=== PATIENT | female | born 1970 | race Caucasian/White ===

== ENCOUNTER 2020-04-10 13:35 | Emergency (ER) | payer BC, SELFPAY ==
[2020-04-10 13:48] VITALS: BP 134/78; PULSE 77; RESP 20; TEMP 36.5; O2SAT 98
--- NOTE | 2020-04-10 14:09 | ED.GENADULT ---
HPI - General Adult General Chief complaint: Asthma Stated complaint: asthma Time Seen by Provider: 04/10/20 14:09 Source: patient and RN notes reviewed Mode of arrival: ambulatory Limitations: no limitations History of Present Illness HPI narrative: 49-year-old female presents with complaints of dry cough, wheezing, and intermittent asthma exacerbation episodes for the past 13 hours. Asthma attack at 02:00, 10:30, and one prior to [facility] arrival. Albuterol inhaler and po Prednisone (40mg). Cough is persistent. Denies feeling ill or chest feeling Heavy. Intermittent short of breath when ambulating. Denies high fever or chills. Exacerbating factors consists of coughing attacks and getting over heated. Denies chest pain, coughing up blood, difficulty swallowing, jaw pain, dental pain, facial pain, foreign body sensation, and rash. The patient reports she have not been diagnosed with COVID-19. The patient reports she is not waiting for the results of a COVID-19 lab test. The patient reports she do not have fever, chills, weakness, or fatigue. The patient reports she do not have a new or worsening cough or shortness of breath. Denies chest pain. The patient reports she do not have any rhinorrhea, congestion, sore throat, nausea, vomiting, abdominal pain, and diarrhea. Tolerating po intake well. Denies recent traveling. Denies concerns for COVID-19 or exposures been home with limited outdoor exposure except for essential household needs, work, and return home. At this time, patient is not suspected of having COVID-19. Some parts of this dictation were generated by voice recognition software and may contain typographical and/or grammatical inaccuracies. Related Data Home Medications Medication Instructions Recorded Confirmed albuterol sulfate INHALATION 04/10/20 estradiol mg 04/10/20 prednisone 04/10/20 secukinumab [Cosentyx] mg SUBCUT 04/10/20 Allergies Allergy/AdvReac Type Severity Reaction Status Date / Time cobalt Allergy Unknown Verified 04/22/18 17:18 latex Allergy Unknown Verified 08/03/14 14:18 Review of Systems Review of Systems: Narrative: CONSTITUTIONAL: Denies fever, chills, sweats. EYES: Denies visual changes, redness, discharge. ENT: Denies rhinorrhea, congestion, sore throat, otalgia. CARDIOVASCULAR: Denies chest pain, palpitations, edema. RESPIRATORY: Complains of dyspnea, wheezing, persistent dry cough. GASTROINTESTINAL: Denies abdominal pain, nausea, vomiting, diarrhea. GENITOURINARY: Denies dysuria, hematuria, abnormal discharge. SKIN: SKIN: Denies rash or itching. MUSCULOSKELETAL: Denies acute back pain, joint pain, or myalgia. NEUROLOGIC: Denies numbness or focal weakness. PSYCHIATRIC: Denies anxiety or depression. All other systems reviewed are negative, except as documented in HPI and below. [facility] Past Medical History Medical History (Updated 04/11/20 @ 00:00 by Crista Blair) Asthma Psoriasis Rheumatoid arthritis Surgical History Surgical History (Updated 04/10/20 @ 14:54 by JOHN Tabor) History of cholecystectomy History of hysterectomy Family History Family History (Updated 08/03/14 @ 14:21 by DOCTOR UNKNOWN) Other Cerebrovascular accident Hypertension Social History Social History (Updated 04/10/20 @ 14:54 by JOHN Tabor) Smoking status: Former smoker Tobacco type: cigarettes Second hand tobacco smoke exposure: No Alcohol intake: current Substance use: never Living arrangements: with family Occupation/Education: occupation Gender identity (if verbalized by the patient): Female Sexual Orientation (if Verbalized by the Patient): Straight or Heterosexual Comments At time of signature, agree with nurse past medical, surgical, social, and family history. There is relevant patient's past medical history pertinent to the presenting complaint, no relevant family history pertinent to the presenting compl
[2020-04-10] MEDS: IPRATROPIUM BR 0.02% INH SOLN 0.5 MG/2.5 ML VIAL INHALATION (14:26)
[2020-04-10] MEDS: ALBUTEROL SULFATE NEB 2.5 MG/3 ML INH INHALATION (14:27)
[2020-04-10] MEDS: methylPREDNISolone SOD SUCC 125 MG VIAL IM (14:27)
[2020-04-10 15:05] VITALS: PULSE 86; RESP 16; O2SAT 98
== END 2020-04-10 15:05 | disposition home or self-care (01) ==
PROVIDERS: Emergency Provider Nurse Practitioner Family; PCP Registered Nurse
DX: J45.31 Mild persistent asthma with (acute) exacerbation (principal); M06.9 Rheumatoid arthritis, unspecified; Z87.891 Personal history of nicotine dependence
CPT/HCPCS: 94640; 96372; 99213; G0463; J2930

== ENCOUNTER 2020-06-24 15:21 | Emergency (ER) | payer BC, SELFPAY ==
--- NOTE | 2020-06-24 15:27 | ED.SKABFB ---
HPI - Skin/Abscess/Foreign Bdy General Chief complaint: Skin/Abscess/Foreign Body Stated complaint: Bite on Back Time Seen by Provider: 06/24/20 15:45 Source: patient and RN notes reviewed Mode of arrival: ambulatory Limitations: no limitations History of Present Illness HPI narrative: 49-year-old female presents with concern for a painful rash. She reports pain starting on her mid back going under her arm and under her bra line, noticed several days later she had a raised red painful area on her back. She denies any known injury, trauma, bite. She denies any malaise, chills, fever. Denies any treatment. MD complaint: rash Related Data Home Medications Medication Instructions Recorded Confirmed albuterol sulfate 1 puff INHALATION AC 04/10/20 06/24/20 estradiol 1 mg PO DAILY 04/10/20 06/24/20 prednisone 1 mg PO DAILY 04/10/20 06/24/20 secukinumab [Cosentyx] 1 mg SUBCUT DAILY 04/10/20 06/24/20 hydrocodone-ibuprofen 1 tablet PO BID 06/24/20 06/24/20 Allergies Allergy/AdvReac Type Severity Reaction Status Date / Time cobalt Allergy Unknown Hives Verified 06/24/20 15:40 latex Allergy Unknown Hives Verified 06/24/20 15:40 Review of Systems Review of Systems: Narrative: CONSTITUTIONAL: Denies malaise, chills, sweats, or fever. ENT: Denies swollen tongue, swollen throat CARDIOVASCULAR: Denies chest pain, palpitations, or edema. RESPIRATORY: Denies cough or dyspnea. SKIN: Reports a red painful bump on her back, with the pain extending under her arm and onto her chest going along her bra line MUSCULOSKELETAL: Denies myalgia. NEUROLOGIC: Denies numbness, weakness, or headache. All systems reviewed & are unremarkable except as noted in HPI and below PMFSH Past Medical History Medical History (Updated 06/24/20 @ 15:51 by Veronica Burgos NP) Asthma Psoriasis Rheumatoid arthritis Surgical History Surgical History (Updated 04/10/20 @ 14:54 by JOHN Tabor) History of cholecystectomy History of hysterectomy Family History Family History (Updated 08/03/14 @ 14:21 by DOCTOR UNKNOWN) Other Cerebrovascular accident Hypertension Social History Social History (Updated 04/10/20 @ 14:54 by ZAK Tabor Smoking status: Former smoker Tobacco type: cigarettes Second hand tobacco smoke exposure: No Alcohol intake: current Substance use: never Gender identity (if verbalized by the patient): Female Comments At time of signature, agree with nursing past medical, surgical, social and family history. There is no relevant family history pertinent to the presenting complaint Exam Narrative: Exam Narrative: GENERAL: Well-appearing, well-nourished, and in no acute distress. HEAD: Normocephalic EYES: PERRLA, conjunctivae clear ENT: Mucous membranes moist. NECK: Supple. CHEST: No respiratory distress. Speaks in full sentences. HEART: Regular rate and rhythm. SKIN: Warm, dry. Single zosteriform lesion noted to the upper right side of the back NEURO: Alert and oriented x3. PSYCH: Normal mood and affect Course Course Emergency Course: Patient is aware of diagnosis, understands and agrees to treatment plan. Anticipatory guidance given. Patient agrees to follow-up as directed and is aware of reasons to seek care at the emergency department. Portions of this record may have been created with voice recognition software Vital Signs Vital signs: Vital Signs Temperature 98.9 F 06/24/20 15:30 Pulse Rate 72 06/24/20 15:30 Respiratory Rate 18 06/24/20 15:30 Blood Pressure 116/72 06/24/20 15:30 Pulse Oximetry 98 06/24/20 15:30 Temperature 98.9 F 06/24/20 15:30 Pulse Rate 72 06/24/20 15:30 Respiratory Rate 18 06/24/20 15:30 Blood Pressure 116/72 06/24/20 15:30 Pulse Oximetry 98 06/24/20 15:30 Reviewed. MDM - Skin/Abscess/Foreign Bdy MDM Narrative Medical decision making narrative: Does not appear at this time to be erythema multiforme, bul
[2020-06-24 15:30] VITALS: BP 116/72; PULSE 72; RESP 18; TEMP 37.2; O2SAT 98
== END 2020-06-24 16:00 | disposition home or self-care (01) ==
PROVIDERS: Emergency Provider Nurse Practitioner; PCP Registered Nurse
DX: B02.9 Zoster without complications (principal); Z87.891 Personal history of nicotine dependence; J45.909 Unspecified asthma, uncomplicated; M06.9 Rheumatoid arthritis, unspecified
CPT/HCPCS: 99213; G0463

== ENCOUNTER 2020-07-20 08:46 | Outpatient (CLI) | payer BC, SELFPAY ==
--- NOTE | ~2020-07-20 | CT_ITS ---
EXAMINATION: CT sinus wo con DATE: 07/20/2020 08:57 INDICATION: Chronic sinusitis TECHNIQUE: Computed tomography (CT) of the paranasal sinuses was performed without intravenous contra st. The dose-length product (DLP) was 275.58 mGy-cm. Iterative reconstruction was used. COMPARISON: 11/07/2007 FINDINGS: There is normal development and pneumatization of the paranasal sinuses. Surgical changes a re noted in the medial mendieta of the maxillary sinuses. There is a 9 mm polyp or mucous retention cyst at the anterior/inferior aspect of the right maxillary sinus. A smaller polyp or mucous retention cy st is seen laterally in the right maxillary sinus. The sphenoid and frontal sinuses and ethmoidal and mastoid air cells are clear. The bilateral ostiomeatal complexes are patent. Visualized soft tissues are unremarkable. IMPRESSION: 1. Small polyps or mucous retention cysts of the right maxillary sinus. Reviewed, dictated and finalized at location [facility]. [employer]ICATION[employer] OFF[employer]ER
== END 2020-07-20 08:47 ==
LOC: MICIMG 08:47
PROVIDERS: PCP Registered Nurse; Visit Provider Allergy & Immunology
DX: J32.9 Chronic sinusitis, unspecified (principal)
CPT/HCPCS: 70486

== ENCOUNTER 2022-06-21 09:00 | Outpatient (CLI) | payer BC, SELFPAY ==
--- NOTE | ~2022-06-21 | CT_ITS ---
EXAMINATION: CT sinus wo con DATE: 06/21/2022 09:13 INDICATION: Chronic sinusitis TECHNIQUE: Computed tomography (CT) of the paranasal sinuses was performed without intravenous contra st. The dose-length product was 257.01 mGy-cm. Automated exposure control and iterative reconstructio n technique were employed. COMPARISON: CT dated 07/20/2020 FINDINGS: There are small mucous retention cysts of the right maxillary sinus. There is mild mucosal thickening of the ethmoid and right maxillary sinuses. No significant nasal septal deviation. Ostiome atal units are patent. Mastoids are pneumatized. IMPRESSION: 1. Mild chronic sinus disease with mucous retention cyst of the right maxillary sinus. Reviewed, dictated and finalized at location [facility].
== END 2022-06-21 09:01 ==
LOC: MICIMG 09:02
PROVIDERS: PCP Registered Nurse; Visit Provider Allergy & Immunology
DX: J32.9 Chronic sinusitis, unspecified (principal)
CPT/HCPCS: 70486

== ENCOUNTER 2022-07-10 12:04 | Emergency (ER) | payer BC, SELFPAY ==
[2022-07-10 12:11] VITALS: BP 135/102; PULSE 86; RESP 16; TEMP 36.6; O2SAT 100
--- NOTE | 2022-07-10 12:36 | ED.EYEPROB ---
HPI - Eye Problem General Chief complaint: Eye Problems Stated complaint: Both Eyes Irritation Time Seen by Provider: 07/10/22 12:37 Source: patient and RN notes reviewed Mode of arrival: ambulatory Limitations: no limitations History of Present Illness HPI Narrative: 51-year-old female presents concern for bilateral eye irritation, drainage. Reports her son grandson had pinkeye. She reports using onex-[id number]-oovzxbi drops without relief chief complaint: eye redness Related Data Home Medications Medication Instructions Recorded Confirmed albuterol sulfate 90 mcg/actuation 1 puff inhalation AC 04/10/20 07/10/22 aerosol inhaler secukinumab 150 mg/mL subcutaneous 1 mg subcut DAILY 04/10/20 07/10/22 syringe (Cosentyx) fluticasone fur. 200 mcg-umeclid 1 inh inhalation DAILY 07/10/22 07/10/22 62.5 mcg-vilant 25 mcg inhalat.powder (Trelegy Ellipta) ixekizumab 80 mg/mL subcutaneous See Rx Instructions .Route .COMPLEX 07/10/22 07/10/22 auto-injector (Taltz Autoinjector) leflunomide 20 mg tablet 20 mg PO DAILY 07/10/22 07/10/22 prednisone 5 mg tablet 5 mg PO DAILY 07/10/22 07/10/22 Allergies Allergy/AdvReac Type Severity Reaction Status Date / Time cobalt Allergy Unknown Hives Verified 07/10/22 12:10 latex Allergy Unknown Hives Verified 07/10/22 12:10 Review of Systems Review of Systems: CONSTITUTIONAL: Denies malaise, chills, sweats, or fever. EYES: Denies visual changes. Reports bilateral redness, irritation, discharge. ENT: Denies rhinorrhea, congestion, sinus pain, otalgia or sore throat. SKIN: Denies rash or itching. NEUROLOGIC: Denies numbness, weakness, or headache. PSYCHIATRIC: Denies anxiety or depression. All systems reviewed & are unremarkable except as noted in HPI and below PMFSH Past Medical History Medical History (Updated 07/10/22 @ 12:44 by Veronica Burgos NP) Asthma Psoriasis Rheumatoid arthritis Surgical History Surgical History (Updated 04/10/20 @ 14:54 by JOHN Tabor) History of cholecystectomy History of hysterectomy Family History Family History (Updated 08/03/14 @ 14:21 by DOCTOR UNKNOWN) Other Cerebrovascular accident Hypertension Social History Social History (Updated 04/10/20 @ 14:54 by JOHN Tabor) Smoking status: Former smoker Tobacco type: cigarettes Second hand tobacco smoke exposure: No Alcohol intake: current Substance use: never Gender identity (if verbalized by the patient): Female Sexual Orientation (if Verbalized by the Patient): Straight or Heterosexual Comments At time of signature, agree with nursing past medical, surgical, social and family history. There is no relevant family history pertinent to the presenting complaint Exam Narrative: GENERAL: Well-appearing, well-nourished, and in no acute distress. HEAD: Normocephalic, atraumatic. EYES: PERRLA and EOMI. No nystagmus. Bilateral conjunctivae and sclera injected. Upper and lower eyelid unremarkable, no periorbital edema noted ENT: Nares clear, turbinates pink, no rhinorrhea or epistaxis. Mucous membranes moist. TM pearly michele with sharp light reflex bilaterally; no tragal tenderness. NECK: Supple. CHEST: No respiratory distress. Speaks in full sentences. HEART: Regular rate and rhythm. SKIN: Warm, dry, no visible rash. NEURO: Alert and oriented x3. PSYCH: Normal mood and affect Course Course Emergency Course: Patient is aware of diagnosis, understands and agrees to treatment plan. Anticipatory guidance given. Patient agrees to follow-up as directed and is aware of reasons to seek care at the emergency department. Portions of this record may have been created with voice recognition software Level of Care: Express Care Visit Vital Signs Vital signs: Vital Signs Temperature 97.8 F 07/10/22 12:11 Pulse Rate 86 07/10/22 12:11 Respiratory Rate 16 07/10/22 12:11 Blood Pressure 135/102 H 07/10/22 12:11 Pulse Oximetry 100 10
== END 2022-07-10 12:49 | disposition home or self-care (01) ==
PROVIDERS: Emergency Provider Nurse Practitioner; PCP Registered Nurse
DX: H10.9 Unspecified conjunctivitis (principal); Z87.891 Personal history of nicotine dependence; J45.909 Unspecified asthma, uncomplicated; M06.9 Rheumatoid arthritis, unspecified
CPT/HCPCS: 99213; G0463

== ENCOUNTER 2022-09-19 15:19 | Emergency (ER) | payer BC, SELFPAY ==
[2022-09-19 15:27] VITALS: BP 142/86; PULSE 75; RESP 16; TEMP 37; O2SAT 100
--- NOTE | 2022-09-19 15:45 | ED.URI ---
HPI - URI/Sore Throat General Chief Complaint: Upper Respiratory Infection Stated Complaint: sinus pressure Time Seen by Provider: 09/19/22 15:40 Source: patient Mode of arrival: ambulatory Limitations: no limitations History of Present Illness HPI Narrative: Ms. Patterson is a 51-year-old female patient presenting to the clinic today with complaints of runny nose, sinus congestion, and sinus pressure times 3-4 days. She denies any fever or chills. Reports that she has had some yellow and green nasal drainage. MD elicited complaint: sore throat and nasal congestion Related Data Home Medications Medication Instructions Recorded Confirmed albuterol sulfate 90 mcg/actuation 1 puff inhalation AC 04/10/20 07/10/22 aerosol inhaler secukinumab 150 mg/mL subcutaneous 1 mg subcut DAILY 04/10/20 07/10/22 syringe (Cosentyx) fluticasone fur. 200 mcg-umeclid 1 inh inhalation DAILY 07/10/22 07/10/22 62.5 mcg-vilant 25 mcg inhalat.powder (Trelegy Ellipta) ixekizumab 80 mg/mL subcutaneous See Rx Instructions .Route .COMPLEX 07/10/22 07/10/22 auto-injector (Taltz Autoinjector) leflunomide 20 mg tablet 20 mg PO DAILY 07/10/22 07/10/22 prednisone 5 mg tablet 5 mg PO DAILY 07/10/22 07/10/22 Allergies Allergy/AdvReac Type Severity Reaction Status Date / Time cobalt Allergy Unknown Hives Verified 09/19/22 15:24 latex Allergy Unknown Hives Verified 09/19/22 15:24 Review of Systems Review of Systems: Pertinent positives per HPI. Patient denies any fever, chills, rash, headache, visual changes, dizziness, cough, shortness of breath, chest pain, palpitations, nausea, vomiting, diarrhea, constipation, abdominal pain, or any urinary issues. [facility] Past Medical History Medical History Asthma Psoriasis Rheumatoid arthritis Surgical History Surgical History History of cholecystectomy History of hysterectomy Family History Family History Other Cerebrovascular accident Hypertension Social History Social History Smoking status: Former smoker Tobacco type: cigarettes Second hand tobacco smoke exposure: No Alcohol intake: current Substance use: never Gender identity (if verbalized by the patient): Female Sexual Orientation (if Verbalized by the Patient): Straight or Heterosexual Comments At the time of my signature, I reviewed and agree with the nursing past medical, surgical, social, and family history. There is no relevant family history pertinent to the patient complaint. Exam Narrative: General: Well-developed, well nourished, in no apparent distress Head: Normocephalic, atraumatic Eyes: Pupils equally round and reactive to light bilaterally, EOM intact, sclera and conjunctive clear, no discharge, lids normal Ears: TMs intact and clear, ear canals clear, no drainage, grossly hearing normal. Nose: Nares patent, clear nasal discharge, moderate inflammation, maxillary sinus tenderness. Mouth: Oral pharynx without lesions or masses, good dentition, MMM. oropharynx red, postnasal drip Neck: Supple, trachea midline, no enlargement of anterior or posterior cervical nodes, no thyroid masses or goiter palpable. Cardio: Regular rate and rhythm, s1 and s2 normal, no murmur appreciated. Resp: Clear to auscultation bilaterally, no rhonchi, rales, wheezing or rubs Course Course Emergency Course: Portions of this record may have been created with voice recognition software. Level of Care: Express Care Visit Vital Signs Vital signs: Vital Signs Temperature 37.0 C 09/19/22 15:27 Pulse Rate 75 09/19/22 15:27 Respiratory Rate 16 09/19/22 15:27 Blood Pressure 142/86 H 09/19/22 15:27 Pulse Oximetry 100 09/19/22 15:27 Oxygen Delivery Room Air
== END 2022-09-19 15:53 | disposition home or self-care (01) ==
PROVIDERS: Emergency Provider Nurse Practitioner Family; PCP Registered Nurse
DX: J06.9 Acute upper respiratory infection, unspecified (principal); Z87.891 Personal history of nicotine dependence; J45.909 Unspecified asthma, uncomplicated; L40.9 Psoriasis, unspecified; M06.9 Rheumatoid arthritis, unspecified
CPT/HCPCS: 99213; G0463

== ENCOUNTER 2022-12-07 16:56 | Emergency (ER) | payer BC, SELFPAY ==
[2022-12-07 17:07] VITALS: BP 151/92; PULSE 90; RESP 16; TEMP 37.2; O2SAT 100
--- NOTE | 2022-12-07 17:39 | ED.GENADULT ---
HPI - General Adult General Chief complaint: Skin/Abscess/Foreign Body Stated complaint: Wound Time Seen by Provider: 12/07/22 17:39 Source: patient, RN notes reviewed and old records reviewed Mode of arrival: ambulatory Limitations: no limitations History of Present Illness HPI narrative: 51-year-old female presents to the [facility] with concerns over inflammation and redness to attend to she had done 2 weeks ago. Has a history of psoriatic arthritis. Redness and swelling noted to the to tattoos, yellow ink seems to be coming out. No increased warmth or fluctuance Has had multiple tattoos in the past, no issues with them before Related Data Home Medications Medication Instructions Recorded Confirmed albuterol sulfate 90 mcg/actuation 1 puff inhalation AC 04/10/20 12/07/22 aerosol inhaler secukinumab 150 mg/mL subcutaneous 1 mg subcut DAILY 04/10/20 12/07/22 syringe (Cosentyx) fluticasone fur. 200 mcg-umeclid 1 inh inhalation DAILY 07/10/22 12/07/22 62.5 mcg-vilant 25 mcg inhalat.powder (Trelegy Ellipta) ixekizumab 80 mg/mL subcutaneous See Rx Instructions .Route .COMPLEX 07/10/22 12/07/22 auto-injector (Taltz Autoinjector) leflunomide 20 mg tablet 20 mg PO DAILY 07/10/22 12/07/22 prednisone 5 mg tablet 5 mg PO DAILY 07/10/22 12/07/22 Allergies Allergy/AdvReac Type Severity Reaction Status Date / Time cobalt Allergy Unknown Hives Verified 12/07/22 17:13 latex Allergy Unknown Hives Verified 12/07/22 17:13 Review of Systems Review of Systems: All systems reviewed & are unremarkable except as noted in HPI and below Constitutional: Constitutional: Reports no additional constitutional complaints Eyes: Eyes: Reports no additional eye complaints ENT: Reports system reviewed and no additional complaints, except as documented Cardiovascular: Cardiovascular: Reports no additional cardiovascular complaints, Denies chest pain and Denies dyspnea Respiratory: Respiratory: Reports no additional respiratory complaints, Denies chest congestion, Denies cough and Denies dyspnea Gastrointestinal: Gastrointestinal: Reports no additional gastrointestinal complaints, Denies abdominal pain, Denies nausea and Denies vomiting Musculoskeletal: Musculoskeletal: Reports no additional musculoskeletal complaints Integumentary/Breasts: Skin/Breast: Reports as per HPI Neurologic: Reports system reviewed and no additional complaints, except as documented Psychiatric: Psychiatric: Reports no additional psychiatric complaints Allergic/Immunologic: Allergic/Immunologic: Reports no additional allergic/immunologic complaints [facility] Past Medical History Medical History Asthma Psoriasis Rheumatoid arthritis Surgical History Surgical History History of cholecystectomy History of hysterectomy Family History Family History Other Cerebrovascular accident Hypertension Social History Social History Smoking status: Former smoker Tobacco type: cigarettes Second hand tobacco smoke exposure: No Alcohol intake: current Substance use: never Living arrangements: with family Occupation/Education: occupation Gender identity (if verbalized by the patient): Female Sexual Orientation (if Verbalized by the Patient): Straight or Heterosexual Comments At the time of my signature, I reviewed and agree with the nursing past medical, surgical, social, and family history. There is no relevant family history pertinent to the patient complaint. Exam Const: General: cooperative, healthy appearing, comfortable, no acute distress, well developed, alert and well nourished Nutritional Appearance: well nourished Orientation/consciousness: patient oriented x3 Limitations: no limitations HENMT: Head: no
== END 2022-12-07 18:00 | disposition home or self-care (01) ==
PROVIDERS: Emergency Provider Nurse Practitioner; PCP Registered Nurse
DX: L53.9 Erythematous condition, unspecified (principal); Z87.891 Personal history of nicotine dependence; J45.909 Unspecified asthma, uncomplicated; M06.9 Rheumatoid arthritis, unspecified; L40.9 Psoriasis, unspecified
CPT/HCPCS: 99213; G0463

== ENCOUNTER 2023-04-02 15:43 | Outpatient (CLI) | payer BC, SELFPAY ==
--- NOTE | ~2023-04-02 | CT_ITS ---
EXAMINATION: CT sinus wo con DATE: 04/02/2023 15:57 INDICATION: Chronic sinusitis. History of sinus surgery. TECHNIQUE: Computed tomography (CT) of the paranasal sinuses was performed without contrast. Iterativ e reconstruction technique was employed. Exam dose: 257.89 mGy-cm total exam DLP. COMPARISON: 06/21/2022 CT sinus examination FINDINGS: No significant nasal septal deviation. The nasal turbinates are moderately prominent and sy mmetric in size except for intralamellar cell of the right middle nasal turbinate. There are bilateral nasal antral windows. The ostiomeatal units are patent. There is mild nodular mucoperiosteal thickening of the lower right maxillary sinus. The paranasal sin uses and mastoid air cells are otherwise clear and well aerated. IMPRESSION: Minimal mucoperiosteal thickening of the lower right maxilla sinus; the paranasal sinuse s and mastoid air cells are otherwise well aerated Intralamellar cell of right middle nasal turbinate Status post bilateral nasal antral windows Reviewed, dictated and finalized at [facility]. Reviewed, dictated and finalized at location [facility]. IMPRESSION: Minimal mucoperiosteal thickening of the lower right maxilla sinus ; the paranasal sinuses and mastoid air cells are otherwise well aerated Intralamellar cell of right middle nasal turbinate Status post bilateral nasal antral windows
== END 2023-04-02 15:44 ==
PROVIDERS: PCP Allergy & Immunology; Visit Provider Allergy & Immunology
DX: J32.9 Chronic sinusitis, unspecified (principal)
CPT/HCPCS: 70486

== ENCOUNTER 2023-05-14 14:59 | Emergency (ER) | payer BC, SELFPAY ==
--- NOTE | 2023-05-14 15:16 | ED.URI ---
HPI - URI/Sore Throat General Chief Complaint: Upper Respiratory Infection Stated Complaint: Sinus Time Seen by Provider: 05/14/23 15:20 Source: patient Mode of arrival: ambulatory Limitations: no limitations History of Present Illness HPI Narrative: Neeraj is a 52-year-old female patient presenting to the clinic today with complaints of cough and nasal congestion x3 weeks. Reports she has been already placed on a steroid however the symptoms are getting worse. Denies any fever or chills. MD elicited complaint: cough, nasal congestion and sinus pain Related Data Home Medications Medication Instructions Recorded Confirmed albuterol sulfate 90 mcg/actuation 1 puff inhalation AC 04/10/20 05/14/23 aerosol inhaler secukinumab 150 mg/mL subcutaneous 1 mg subcut DAILY 04/10/20 12/07/22 syringe (Cosentyx) fluticasone fur. 200 mcg-umeclid 1 inh inhalation DAILY 07/10/22 05/14/23 62.5 mcg-vilant 25 mcg inhalat.powder (Trelegy Ellipta) ixekizumab 80 mg/mL subcutaneous See Rx Instructions .Route .COMPLEX 07/10/22 05/14/23 auto-injector (Taltz Autoinjector) leflunomide 20 mg tablet 20 mg PO DAILY 07/10/22 05/14/23 prednisone 5 mg tablet 5 mg PO DAILY 07/10/22 05/14/23 Allergies Allergy/AdvReac Type Severity Reaction Status Date / Time cobalt Allergy Unknown Hives Verified 05/14/23 15:25 latex Allergy Unknown Hives Verified 05/14/23 15:25 Review of Systems Review of Systems: Pertinent positives per HPI. Patient denies any fever, chills, rash, visual changes, dizziness, shortness of breath, chest pain, palpitations, nausea, vomiting, diarrhea, constipation, abdominal pain, or any urinary issues. [facility] Past Medical History Medical History Asthma Psoriasis Rheumatoid arthritis Surgical History Surgical History History of cholecystectomy History of hysterectomy Family History Family History Other Cerebrovascular accident Hypertension Social History Social History Smoking status: Former smoker Tobacco type: cigarettes Second hand tobacco smoke exposure: No Alcohol intake: current Substance use: never Living arrangements: with family Occupation/Education: occupation Gender identity (if verbalized by the patient): Female Sexual Orientation (if Verbalized by the Patient): Straight or Heterosexual Comments At the time of my signature, I reviewed and agree with the nursing past medical, surgical, social, and family history. There is no relevant family history pertinent to the patient complaint. Exam Narrative: General: Well-developed, well nourished, in no apparent distress Head: Normocephalic, atraumatic Eyes: Pupils equally round and reactive to light bilaterally, EOM intact, sclera and conjunctive clear, no discharge, lids normal Ears: TMs intact and clear, ear canals clear, no drainage, grossly hearing normal. Nose: Nares patent, clear discharge moderate to severe inflammation, maxillary and frontal sinus tenderness. Mouth: Oral pharynx without lesions or masses, good dentition, MMM. Postnasal drip Neck: Supple, trachea midline, no enlargement of anterior or posterior cervical nodes, no thyroid masses or goiter palpable. Cardio: Regular rate and rhythm, s1 and s2 normal, no murmur appreciated. Resp: Clear to auscultation bilaterally, no rhonchi, rales, wheezing or rubs Course Course Emergency Course: Portions of this record may have been created with voice recognition software. Level of Care: Express Care Visit Vital Signs Vital signs: Vital Signs Temperature 37.1 C 05/14/23 15:17 Pulse Rate 72 05/14/23 15:17 Respiratory Rate 16 05/14/23 15:17 Blood Pressure 136/83 05/14/23 15:17 Pulse Oximetry 100 05/14/23 15:17 Oxygen
[2023-05-14 15:17] VITALS: BP 136/83; PULSE 72; RESP 16; TEMP 37.1; O2SAT 100
== END 2023-05-14 15:35 | disposition home or self-care (01) ==
PROVIDERS: Emergency Provider Nurse Practitioner Family; PCP Allergy & Immunology
DX: J01.90 Acute sinusitis, unspecified (principal); Z87.891 Personal history of nicotine dependence; J45.909 Unspecified asthma, uncomplicated; L40.9 Psoriasis, unspecified; M06.9 Rheumatoid arthritis, unspecified
CPT/HCPCS: 99213; G0463

== ENCOUNTER 2023-08-21 15:38 | Emergency (ER) | payer BC, SELFPAY ==
--- NOTE | 2023-08-21 15:42 | ED.EAR ---
HPI - Ear Problem General Chief complaint: Ear Stated complaint: Ears Irritation/Dizziness Time Seen by Provider: 08/21/23 16:06 Source: patient and RN notes reviewed Mode of arrival: ambulatory Limitations: no limitations History of Present Illness HPI Narrative: 52-year-old female presents concern for bilateral ear pain and dizziness. Reports symptoms started yesterday. She reports history of having wax impaction. She reports dizziness happens when she turns her head. She reports headache after looking at the computer screen all day work. She denies upper respiratory infection symptoms, however reports chronic sinus symptoms MD Complaint: ear pain Related Data Home Medications Medication Instructions Recorded Confirmed albuterol sulfate 90 mcg/actuation 1 puff inhalation AC 04/10/20 05/14/23 aerosol inhaler fluticasone fur. 200 mcg-umeclid 1 inh inhalation DAILY 07/10/22 05/14/23 62.5 mcg-vilant 25 mcg inhalat.powder (Trelegy Ellipta) ixekizumab 80 mg/mL subcutaneous See Rx Instructions .Route .COMPLEX 07/10/22 05/14/23 auto-injector (Taltz Autoinjector) leflunomide 20 mg tablet 20 mg PO DAILY 07/10/22 05/14/23 Allergies Allergy/AdvReac Type Severity Reaction Status Date / Time cobalt Allergy Unknown Hives Verified 08/21/23 15:51 latex Allergy Unknown Hives Verified 08/21/23 15:51 Review of Systems Review of Systems: CONSTITUTIONAL: Denies malaise, chills, sweats, or fever. EYES: Denies visual changes, redness, or discharge. ENT: Reports chronic rhinorrhea, congestion. Reports bilateral ear pain and fullness CARDIOVASCULAR: Denies chest pain, palpitations, or edema. RESPIRATORY: Denies cough. Denies dyspnea. GASTROINTESTINAL: Denies abdominal pain, nausea, vomiting, diarrhea SKIN: Denies rash or itching. MUSCULOSKELETAL: Denies myalgia. NEUROLOGIC: Reports headache. Reports positional dizziness All systems reviewed & are unremarkable except as noted in HPI and below PMFSH Past Medical History Medical History Asthma Psoriasis Rheumatoid arthritis Surgical History Surgical History History of cholecystectomy History of hysterectomy Family History Family History Other Cerebrovascular accident Hypertension Social History Social History Smoking status: Former smoker Tobacco type: cigarettes Second hand tobacco smoke exposure: No Alcohol intake: current Substance use: never Living arrangements: with family Occupation/Education: occupation Gender identity (if verbalized by the patient): Female Sexual Orientation (if Verbalized by the Patient): Straight or Heterosexual Comments At time of signature, agree with nursing past medical, surgical, social and family history. There is no relevant family history pertinent to the presenting complaint Exam Narrative: GENERAL: Well-appearing, well-nourished, and in no acute distress. HEAD: Normocephalic EYES: PERRLA, conjunctivae clear ENT: Nares clear, turbinates edematous, clear discharge. Mucous membranes moist. Excess cerumen in both ears, cerumen flushed. Right TM erythematous and bulging, left TM erythematous; no tragal tenderness. Right not erythematous without lesions. Tonsils not enlarged and without exudate, no drooling, no hoarseness, no trismus, uvula midline. NECK: Supple. No lymphadenopathy CHEST: Clear to auscultation, breath sounds equal. No wheezing, rhonchi, rales, or stridor. No respiratory distress, speaks in full sentences. HEART: Regular rate and rhythm. No murmur heard. SKIN: Warm, dry, no rash. NEURO: Alert and oriented x3. No focal deficits, cranial nerves 2-12 grossly intact PSYCH: Normal mood and affect Course Course Emergency Course: Patient is aware of diagnosis,
[2023-08-21 15:45] VITALS: BP 129/88; PULSE 89; RESP 16; TEMP 36.1; O2SAT 99
== END 2023-08-21 16:46 | disposition home or self-care (01) ==
PROVIDERS: Emergency Provider Nurse Practitioner; PCP Registered Nurse
DX: H66.91 Otitis media, unspecified, right ear (principal); R42 Dizziness and giddiness; H61.23 Impacted cerumen, bilateral; Z87.891 Personal history of nicotine dependence; J45.909 Unspecified asthma, uncomplicated; L40.9 Psoriasis, unspecified; M06.9 Rheumatoid arthritis, unspecified
CPT/HCPCS: 69210; 99213; A9270; G0463

== ENCOUNTER 2024-05-05 09:28 | Emergency (ER) | payer BC, SELFPAY ==
[2024-05-05 09:35] VITALS: BP 115/78; PULSE 88; RESP 20; TEMP 36.6; O2SAT 100
--- NOTE | 2024-05-05 09:57 | ED.URI ---
HPI - URI/Sore Throat General Chief Complaint: Extremity Problem,Nontraumatic Stated Complaint: Joint issue,pain, fluid buildup ref here by fran Time Seen by Provider: 05/05/24 09:45 Source: patient, RN notes reviewed and old records reviewed Mode of arrival: ambulatory Limitations: no limitations History of Present Illness HPI Narrative: Patient presents with complaints of psoriatic arthritis flare up. Patient follows with rheumatology at [facility], her screw eye assembler is out of the office today, staff reportedly advised patient to seek help at urgent care. Patient states that symptoms began a couple of days ago. She has pain and swelling to multiple joints. Fatigue. She has been taking her regular medications, states that this is worse flare that she has had in a long time. Reports good response to steroid medications in the past. She did not have any on hand. She denies any fever, chills, sweats. Denies any injury or trauma Related Data Home Medications Medication Instructions Recorded Confirmed fluticasone fur. 200 mcg-umeclid 1 inh inhalation DAILY 07/10/22 05/05/24 62.5 mcg-vilant 25 mcg inhalat.powder (Trelegy Ellipta) prednisone 5 mg tablet 5 mg DIRECTED 05/05/24 05/05/24 Allergies Allergy/AdvReac Type Severity Reaction Status Date / Time cobalt Allergy Unknown Hives Verified 08/21/23 15:51 latex Allergy Unknown Hives Verified 08/21/23 15:51 Review of Systems Review of Systems: All systems reviewed & are unremarkable except as noted in HPI and below Constitutional: Constitutional: Reports as per HPI, Reports no additional constitutional complaints, Reports fatigue and Reports lethargy ENT: Reports system reviewed and no additional complaints, except as documented Cardiovascular: Cardiovascular: Reports no additional cardiovascular complaints Respiratory: Respiratory: Reports no additional respiratory complaints Gastrointestinal: Gastrointestinal: Reports no additional gastrointestinal complaints Musculoskeletal: Musculoskeletal: Reports no additional musculoskeletal complaints, Reports as per HPI, Reports myalgias, Reports arthralgias, Reports joint swelling and Reports limited range of motion PMFSH Past Medical History Medical History Asthma Psoriasis Rheumatoid arthritis Surgical History Surgical History History of cholecystectomy History of hysterectomy Family History Family History Other Cerebrovascular accident Hypertension Social History Social History Smoking status: Former smoker Tobacco type: cigarettes Second hand tobacco smoke exposure: No Alcohol intake: current Substance use: never Living arrangements: with family Occupation/Education: occupation Gender identity (if verbalized by the patient): Female Sexual Orientation (if Verbalized by the Patient): Straight or Heterosexual Comments At the time of my signature, I reviewed and agree with the nursing past medical, surgical, social, and family history. There is no relevant family history pertinent to the patient complaint. Exam Const: General: cooperative, no acute distress, alert and awake Orientation/consciousness: oriented to person, oriented to place and oriented to time HENMT: Head: normal to inspection Resp: Effort & Inspection: normal respiratory effort and able to speak in complete sentences Auscultation: clear to auscultation bilaterally, no crackles, no rales, no rhonchi and no wheezes Cardio: Palpation: normal PMI Rate: regular rate Rhythm: regular rhythm Heart sounds: S1 normal heart sound present and S2 normal heart sound present Neuro: General: oriented to person, oriented to place and oriented to time Cranial nerves: Yes CN's II-XII int
[2024-05-05] MEDS: predniSONE 20 MG TABLET 60 MG PO (10:02)
== END 2024-05-05 10:20 | disposition home or self-care (01) ==
PROVIDERS: Emergency Provider Nurse Practitioner Family; PCP Registered Nurse
DX: L40.50 Arthropathic psoriasis, unspecified (principal); Z87.891 Personal history of nicotine dependence; L40.9 Psoriasis, unspecified; M06.9 Rheumatoid arthritis, unspecified; J45.909 Unspecified asthma, uncomplicated
CPT/HCPCS: 99213; G0463; J7512

== ENCOUNTER 2024-05-08 07:45 | Emergency (ER) | payer BC, SELFPAY ==
--- NOTE | ~2024-05-08 | XR_ITS ---
EXAMINATION: XR chest 2V DATE: 05/08/2024 08:57 INDICATION: Chest pain with breathing. TECHNIQUE: Frontal and lateral views of the chest were obtained. COMPARISON: Chest 2 views 04/22/2018 FINDINGS: There is no pneumonia, pleural effusion, or pneumothorax. The heart size is normal. Surgica l clips in the right upper quadrant are likely from cholecystectomy. IMPRESSION: 1. No acute cardiopulmonary disease. Reviewed, dictated and finalized at location A.
[2024-05-08 07:49] VITALS: BP 146/91; PULSE 106; RESP 22; TEMP 36.6; O2SAT 97
--- NOTE | 2024-05-08 08:03 | ECG_ITS ---
Test Date: 2024-05-08 08:18:37 Measurements Intervals [place] Rate: 80 P: 75 ID: 144 QRS: 58 QRSD: 101 T: 54 QT: 388 QTc: 449 Interpretive Statements SINUS RHYTHM No previous ECG available for comparison Electronically Signed On 05-08-2024 15:11:40 CDT by Hi Wolfe M.D.
[2024-05-08] MEDS: SODIUM CHLORIDE 0.9% IV 1,000 ML 999 ML IV CONT ×2 (08:16→08:17)
[2024-05-08] MEDS: KETOROLAC 30 MG/ML VIAL (*BKC) IV PUSH (08:17)
--- NOTE | 2024-05-08 08:18 | ED.GENADULT ---
HPI - General Adult General Chief complaint: Unspecified Stated complaint: flare up of my psoriatic arthritis Time Seen by Provider: 05/08/24 07:50 History of Present Illness HPI narrative: Patient is a 53-year-old female with history of psoriatic arthritis who presents ER with reports of joint pains. Ongoing for several days. Has recently been started on prednisone 50 mg. She has had decreased swelling in her right wrist. She reports however that the pain is still present so she opted to come here for further evaluation. Patient has been having some cough. No fevers or chills. No redness of the joints. No chest pain or chest pressure. Related Data Home Medications Medication Instructions Recorded Confirmed fluticasone fur. 200 mcg-umeclid 1 inh inhalation DAILY 07/10/22 05/05/24 62.5 mcg-vilant 25 mcg inhalat.powder (Trelegy Ellipta) prednisone 5 mg tablet 5 mg DIRECTED 05/05/24 05/05/24 Allergies Allergy/AdvReac Type Severity Reaction Status Date / Time cobalt Allergy Unknown Hives Verified 05/08/24 07:52 latex Allergy Unknown Hives Verified 05/08/24 07:52 Review of Systems Review of Systems: All systems reviewed & are unremarkable except as noted in HPI and below Constitutional: Constitutional: Reports no additional constitutional complaints ENT: Reports system reviewed and no additional complaints, except as documented Cardiovascular: Cardiovascular: Reports no additional cardiovascular complaints Respiratory: Respiratory: Denies chest congestion, Reports cough, Denies excessive phlegm production and Reports dyspnea Gastrointestinal: Gastrointestinal: Reports no additional gastrointestinal complaints Musculoskeletal: Musculoskeletal: Reports myalgias, Reports arthralgias, Reports joint swelling and Denies muscle cramps PMFSH Past Medical History Medical History Asthma Psoriasis Rheumatoid arthritis Surgical History Surgical History History of cholecystectomy History of hysterectomy Family History Family History Other Cerebrovascular accident Hypertension Social History Social History Smoking status: Former smoker Tobacco type: cigarettes Second hand tobacco smoke exposure: No Alcohol intake: current Substance use: never Living arrangements: with family Occupation/Education: occupation Gender identity (if verbalized by the patient): Female Sexual Orientation (if Verbalized by the Patient): Straight or Heterosexual Exam Narrative: GENERAL: Well-appearing, well-nourished, and in no acute distress. HEAD: Normocephalic, atraumatic. ENT: Mucous membranes moist. CHEST: Clear to auscultation. No respiratory distress. HEART: Regular rate and rhythm. Normal peripheral pulses. ABDOMEN: Soft, nontender, nondistended. EXTREMITIES: Normal range of motion. No edema. No significant joint effusion. SKIN: Warm, dry, no rash. NEURO: Alert and oriented x3. PSYCH: Normal mood and affect. Course Vital Signs Vital signs: Vital Signs Temperature 97.8 F 05/08/24 07:49 Pulse Rate 106 H 05/08/24 07:49 Respiratory Rate 22 H 05/08/24 07:49 Blood Pressure 146/91 H 05/08/24 07:49 Pulse Oximetry 97 05/08/24 07:49 Oxygen Delivery Room Air 05/08/24 07:49 Temperature 97.8 F 05/08/24 07:49 Pulse Rate 62 05/08/24 09:16 Respiratory Rate 19 05/08/24 09:16 Blood Pressure 124/84 05/08/24 09:16 Pulse Oximetry 100 05/08/24 09:17 Oxygen Delivery Room Air 05/08/24 07:49 Medical Decision Making MDM Narrative Medical decision making narrative: -Course: Pain improved. Informed of results. -Co-morbidities complicating care: Psoriatic arthritis -Hx from independent Sources: Patient -Independent interpr
[2024-05-08 08:23] VITALS: O2SAT 97
[2024-05-08 08:30] LABS: Basophils Absolute Auto 0.1 K/mm3 (0.0-0.1); Eosinophils Absolute Auto 0.1 K/mm3 (0-0.3); Eosinophils Percent Auto 0.9 % (0-4.4); Hematocrit 42.4 % (37.0-47.0); Hemoglobin 14.3 g/dL (12.0-15.0); Immature Granulocyte Absolute 0.06 K/mm3 (0.00-0.031); Immature Granulocyte Percent A 0.8 % (0-0.5); Lymphocytes Absolute Auto 2.68 K/mm3 (0.9-3.2); Lymphocytes Percent Auto 33.9 % (18.3-44.2); Mean Corpuscular HGB Conc 33.7 g/dl (32-36); Mean Corpuscular Hemoglobin 29.7 pg (26-34); Mean Corpuscular Volume 88.1 fl (80-100); Mean Platelet Volume 9.6 fl (7.4-10.4); Monocytes Absolute Auto 0.8 K/mm3 (0.1-0.6); Monocytes Percent Auto 9.6 % (2.6-8.5); Neutrophils Absolute Auto 4.3 K/mm3 (1.3-6.7); Neutrophils Percent Auto 53.8 % (45.5-73.1); Platelet Count Result 351 k/mm3 (150-375); Red Blood Count 4.81 M/mm3 (4.2-5.4); Red Cell Distribution Width 12.2 % (11.5-14.5); White Blood Count 7.9 K/mm3 (4.5-10.0)
[2024-05-08 08:46] LABS: Anion Gap 13 mmol/L (4-12); Blood Urea Nitrogen 8 mg/dL (7-17); Carbon Dioxide 24 mmol/L (22-30); Chloride 101 mmol/L (98-107); Estimated CRCL calculation 73 ml/min; Estimated Glomerular Filt Rate > 60; Potassium 2.9 mmol/L (3.4-5.0); Sodium 138 mmol/L (137-145)
[2024-05-08 08:47] LABS: Albumin Level 3.8 g/dL (3.5-5.1); Alkaline Phosphatase 79 U/L (38-126); Aspartate Amino Transferase 20 U/L (14-36); Bilirubin,Total 0.4 mg/dL (0.2-1.3); Calcium 8.6 mg/dL (8.4-10.2); Glucose 112 mg/dL (65-110)
[2024-05-08 08:51] LABS: Alanine Aminotransferase 21 U/L (6-35)
[2024-05-08 09:02] LABS: Influenza A QL RT-PCR Negative (Negative); Influenza B QL RT-PCR Negative (Negative); RSV RNA, RT-PCR Negative (Negative); SARS-CoV-2 RNA PCR Negative (Negative)
[2024-05-08 09:16] VITALS: BP 124/84; PULSE 62; RESP 19; O2SAT 100
[2024-05-08 09:17] VITALS: O2SAT 100
[2024-05-08] MEDS: POTASSIUM CHLORIDE 20 MEQ PACKET (FOR LIQUID) 40 MEQ PO (09:33)
[2024-05-08] MEDS: HYDROcodone/acetaminophen (*CRX) 5-325 MG TABLET 1 TAB PO (09:34)
[2024-05-08 10:16] VITALS: PULSE 89; RESP 16; O2SAT 100
== END 2024-05-08 10:29 | disposition home or self-care (01) ==
PROVIDERS: Emergency Provider Emergency Medicine; PCP Registered Nurse
DX: L40.50 Arthropathic psoriasis, unspecified (principal); E87.6 Hypokalemia; Z20.822 Contact with and (suspected) exposure to COVID-19; J45.909 Unspecified asthma, uncomplicated; M06.9 Rheumatoid arthritis, unspecified; Z87.891 Personal history of nicotine dependence; Z90.710 Acquired absence of both cervix and uterus; Z90.49 Acquired absence of other specified parts of digestive tract; Z79.51 Long term (current) use of inhaled steroids; Z79.52 Long term (current) use of systemic steroids
CPT/HCPCS: 36415; 71046; 80053; 85025; 87637; 93005; 96361; 96374; 99284; A9270; J1885; J7030

== ENCOUNTER 2024-06-24 14:45 | Emergency (ER) | payer BC, SELFPAY ==
--- NOTE | ~2024-06-24 | CT_ITS ---
CTA chest PE protocol Ordering provider: Love Montoya PA-C History: 53 years Female with . covid, sob, cp,+dimer . Comparison: None. Technique: CT angiogram chest was performed following timed intravenous injection of contrast. Thin s lice axial images and reformatted coronal images were obtained. Three dimensional reformatted images of the chest were also obtained using a [employer] workstation. . Automated exposure control and iterati ve reconstruction technique were employed. The dose-length product was 387.11 mGy-cm. 100 mL Omnipaqu e 350 was given IV. Findings: PULMONARY ARTERIES: No pulmonary embolus. VISUALIZED THORACIC INLET: Hypodensities in the right lobe of the thyroid anteriorly suggestive of a nodule. Ultrasound evaluation advised. MEDIASTINUM: Aorta/coronary arteries: The thoracic aorta is normal. Heart/other: The heart is not enlarged. Lymph nodes: No mediastinal or hilar adenopathy. LUNGS: Patchy groundglass appearing areas are seen in the right upper lobe suggestive of atypical or viral p neumonia. Follow-up advised. Atelectasis versus focal pneumonia seen in the right lower lobe near to the transverse fissure. No pulmonary nodules or masses. No effusions. No pneumothorax. VISUALIZED UPPER ABDOMEN: Small sliding hiatus hernia. Otherwise, the visualized upper abdomen is nor mal. MUSCULOSKELETAL: Soft tissues: The superficial soft tissues are normal. Bones: Normal spine. IMPRESSION: 1. No pulmonary embolism. 2. Patchy groundglass opacities in the right upper lobe which is suggestive of atypical or viral pne umonia. Follow-up advised. 3. Hypodensity in the right lobe of the thyroid. 4. Small sliding hiatus hernia. Reviewed, dictated and finalized at location A. IMPRESSION: 1. No pulmonary embolism. 2. Patchy groundglass opacities in the right upper lobe which is suggestive of atypical or viral pneumonia. Follow-up advised. 3. Hypodensity in the right lobe of the thyroid. 4. Small sliding hiatus hernia.
--- NOTE | ~2024-06-24 | XR_ITS ---
EXAMINATION: XR elbow RT min 3V DATE: 06/24/2024 17:41 INDICATION: Right olecranon swelling and redness. TECHNIQUE: 4 views of right elbow were obtained. COMPARISON: None. FINDINGS: Alignment is normal. No fracture. There is mild elbow joint osteoarthritis. No elbow joint effusion. There is soft tissue swelling overlying the olecranon, consistent with bursitis. IMPRESSION: 1. Olecranon bursitis. 2. Mild elbow joint osteoarthritis. Reviewed, dictated and finalized at location A.
--- NOTE | ~2024-06-24 | XR_ITS ---
CHEST RADIOGRAPH, PA AND LATERAL CLINICAL HISTORY: covid positive, nausea, psoriatic arth flaring . COMPARISON: 05/08/2024 TECHNIQUE: PA and lateral views of the chest. FINDINGS The cardiomediastinal silhouette is unremarkable. The lungs are clear. Visualized osseous structures and soft tissues are unremarkable. IMPRESSION: No focal infiltrate or effusion. Reviewed, dictated and finalized at location A.
--- NOTE | ~2024-06-24 | XR_ITS ---
XR elbow LT min 3V Ordering provider: Love Montoya History: . olecranon swelling/redness POSTERIOR ELBOWS . Comparison: None FINDINGS: BONES: Small bony fragment is a joint space near to the radial head which may be a chip fracture. Loo se body is also possible. Clinical correlation advised. Otherwise No acute fracture or dislocation. JOINT SPACES: Normal. SOFT TISSUES: Soft tissue swelling seen posteriorly. No definite joint effusion. IMPRESSION: Small bony fragment seen near to the radial head indications this area which may be a loose body or f racture. Clinical correlation advised. Soft tissue swelling over the elbow posteriorly. Reviewed, dictated and finalized at location A. IMPRESSION: Small bony fragment seen near to the radial head indications this area which ma y be a loose body or fracture. Clinical correlation advised. Soft tissue swelling over the elbow posteriorly.
--- NOTE | 2024-06-24 14:47 | ECG_ITS ---
Test Date: 2024-06-24 14:58:06 Measurements Intervals [place] Rate: 86 P: 69 OK: 157 QRS: 67 QRSD: 81 T: 80 QT: 365 QTc: 437 Interpretive Statements BASELINE MOTION ARTIFACT, REDUCED ECG QUALITY SINUS RHYTHM NONSPECIFIC ST & T-WAVE ABNORMALITY BORDERLINE ECG Compared to ECG 05/08/2024 08:18:37 CURRENT TRACING IS OF POOR QUALITY Electronically Signed On 06-25-2024 07:10:28 CDT by Prashant Gillis M.D.
[2024-06-24 14:51] VITALS: BP 116/87; PULSE 102; RESP 20; TEMP 36.4; O2SAT 100
--- NOTE | 2024-06-24 16:35 | ED.SOB ---
HPI - SOB/Dyspnea General Chief Complaint: Shortness of Breath/Dyspnea <VERITO Krishnamurthy Last Filed: 06/24/24 16:48> Stated Complaint: covid positive <VERITO Krishnamurthy Last Filed: 06/24/24 16:48> Time Seen by Provider: 06/24/24 16:35 <VERITO Krishnamurthy Last Filed: 06/24/24 16:48> Focused HPI: Patient is a 53 y/o female, with PMH psoriatic arthritis and psoriasis on Remicade infusions (q8 weeks) with Prednisone 5mg daily, who presents to the ED with c/o SOB. Patient reports she tested positive for COVID last Sunday. She has been managing sx's at home, but attempted to return to work today and began feeling SOB. Worse with exertion. States she spoke to her crop roller (Dr. Silva with [facility]) today and was referred to the ED for further evaluation. Patient c/o cough, PABON, R sided rib pain, yesica neck pain. She also reports her yesica elbow joints have been swelling over past couple days, worse throughout R elbow. She notes she has required drainage of R elbow joint in the past. Denies significant CP. Denies recent fevers. Has hx of DVT in her leg around 25 years ago. GENERAL: Mildly ill-appearing, well-nourished, and in no acute distress. HEAD: Normocephalic, atraumatic. CHEST: Clear to auscultation. ?No respiratory distress. No significant focal lung sounds. HEART: Regular rate and rhythm.? MSK: Diffuse swelling in R elbow joint/olecranon with focal fluctuance, warmth, erythema. Small amount of scaling dry skin to tip of olecranon, no drainage. L elbow olecranon also with slight swelling/warmth/erythema/fluctuance, but less severe than R. Skin intact. NEURO: ?Alert and oriented x3. Patient screened in triage and initial orders placed.? ?Additional care and disposition to be based upon?diagnostic testing and treatment. <VERITO Krishnamurthy Last Filed: 06/24/24 16:48> Source: patient <VERITO Krishnamurthy Last Filed: 06/24/24 16:48> Mode of arrival: ambulatory <Love Montoya PA-C - Last Filed: 06/24/24 16:48> Limitations: no limitations <VERITO Krishnamurthy Last Filed: 06/24/24 16:48> History of Present Illness HPI Narrative: Agree with the HPI <Juan Fernandez MD - Last Filed: 06/25/24 03:47> Related Data Home Medications: Home Medications Medication Instructions Recorded Confirmed fluticasone fur. 200 mcg-umeclid 1 inh inhalation DAILY 07/10/22 05/05/24 62.5 mcg-vilant 25 mcg inhalat.powder (Trelegy Ellipta) prednisone 5 mg tablet 5 mg DIRECTED 05/05/24 05/05/24 <Love Montoya PA-C - Last Filed: 06/24/24 16:48> Allergies/Adverse Reactions: Allergies Allergy/AdvReac Type Severity Reaction Status Date / Time cobalt Allergy Unknown Hives Verified 05/08/24 07:52 latex Allergy Unknown Hives Verified 05/08/24 07:52 <Love Montoya PA-C - Last Filed: 06/24/24 16:48> Review of Systems Review of Systems: All systems reviewed & are unremarkable except as noted in HPI and below <Juan Fernandez MD - Last Filed: 06/25/24 03:47> [facility] Past Medical History Medical History: Medical History Asthma Psoriasis Rheumatoid arthritis <Love Montoya PA-C - Last Filed: 06/24/24 16:48> Surgical History Surgical History: Surgical History History of cholecystectomy History of hysterectomy <VERITO Krishnamurthy Last Filed: 06/24/24 16:48> Family History Family History: Family History Other Cerebrovascular accident Hypertension <LUCIANO KrishnamurthyC - Last Filed: 06/24/24 16:48> Social History Social History: Social History Smoking status: Former smoker Tobacco type: cigarettes Second hand tobacco s
[2024-06-24 17:06] LABS: Basophils Absolute Auto 0.1 K/mm3 (0.0-0.1); Basophils Percent Auto 0.6 % (0.2-1.2); Eosinophils Absolute Auto 0.2 K/mm3 (0-0.3); Eosinophils Percent Auto 1.8 % (0-4.4); Hematocrit 43.3 % (37.0-47.0); Hemoglobin 14.8 g/dL (12.0-15.0); Immature Granulocyte Absolute 0.03 K/mm3 (0.00-0.031); Immature Granulocyte Percent A 0.3 % (0-0.5); Lymphocytes Percent Auto 22.1 % (18.3-44.2); Mean Corpuscular HGB Conc 34.2 g/dl (32-36); Mean Corpuscular Hemoglobin 29.9 pg (26-34); Mean Corpuscular Volume 87.5 fl (80-100); Mean Platelet Volume 9.9 fl (7.4-10.4); Monocytes Absolute Auto 0.7 K/mm3 (0.1-0.6); Monocytes Percent Auto 6.7 % (2.6-8.5); Neutrophils Absolute Auto 7.5 K/mm3 (1.3-6.7); Neutrophils Percent Auto 68.5 % (45.5-73.1); Platelet Count Result 310 k/mm3 (150-375); Red Blood Count 4.95 M/mm3 (4.2-5.4); White Blood Count 10.9 K/mm3 (4.5-10.0)
[2024-06-24 17:22] LABS: Prothrombin Time 13.7 Seconds (11.1-14.7)
[2024-06-24 17:34] LABS: D Dimer 12.99 ug/mL (<0.48)
[2024-06-24 17:44] LABS: Erythrocyte Sedimentation Rate 21 mm/hr (0-20)
[2024-06-24] MEDS: SODIUM CHLORIDE 0.9% IV 1,000 ML 999 ML IV CONT (19:49)
[2024-06-24] MEDS: KETOROLAC 15 MG/ML VIAL (*BKC) IV PUSH (19:49)
[2024-06-24 19:55] LABS: Alanine Aminotransferase 20 U/L (6-35); Albumin Level 4.1 g/dL (3.5-5.1); Alkaline Phosphatase 103 U/L (38-126); Anion Gap 10 mmol/L (4-12); Aspartate Amino Transferase 34 U/L (14-36); Bilirubin,Total 0.5 mg/dL (0.2-1.3); Blood Urea Nitrogen 13 mg/dL (7-17); Carbon Dioxide 26 mmol/L (22-30); Chloride 101 mmol/L (98-107); Estimated CRCL calculation 75 ml/min; Estimated Glomerular Filt Rate > 60; Glucose 138 mg/dL (65-110); Magnesium 1.8 mg/dL (1.6-2.3); Potassium 4.3 mmol/L (3.4-5.0); Sodium 137 mmol/L (137-145)
[2024-06-24 19:56] VITALS: BP 120/75; PULSE 71; RESP 16; O2SAT 99
[2024-06-24 19:58] LABS: CRP 1.3 mg/dL (<1.0)
[2024-06-24 20:02] LABS: NT Pro B Type Natriuretic Pept 34 pg/mL (19.9-100); Troponin I < 0.012 ng/mL (0.000-0.034)
[2024-06-24 22:18] VITALS: BP 138/88; PULSE 76; RESP 15; O2SAT 100
== END 2024-06-24 22:19 | disposition home or self-care (01) ==
PROVIDERS: Emergency Medicine; Physician Assistant; Emergency Provider Emergency Medicine; PCP Registered Nurse
DX: M70.21 Olecranon bursitis, right elbow (principal); U07.1 COVID-19; M06.9 Rheumatoid arthritis, unspecified; L40.50 Arthropathic psoriasis, unspecified; Z90.49 Acquired absence of other specified parts of digestive tract; Z90.710 Acquired absence of both cervix and uterus; M19.021 Primary osteoarthritis, right elbow; R94.31 Abnormal electrocardiogram [ECG] [EKG]; K44.9 Diaphragmatic hernia without obstruction or gangrene; R93.89 Abnormal findings on diagnostic imaging of other specified body structures; R91.8 Other nonspecific abnormal finding of lung field; Z79.51 Long term (current) use of inhaled steroids; Z79.52 Long term (current) use of systemic steroids; Z79.620 Long term (current) use of immunosuppressive biologic
CPT/HCPCS: 36415; 71046; 71275; 73080; 80053; 83605; 83735; 83880; 84484; 85025; 85380; 85610; 85652; 85730; 86140; 93005; 96361; 96374; 99284; J1885; J7030; Q9967

== ENCOUNTER 2024-08-12 17:35 | Emergency (ER) | payer BC, SELFPAY ==
--- NOTE | 2024-08-12 17:38 | ED_ITS ---
HPI - Skin/Abscess/Foreign Bdy General Chief complaint: Skin/Abscess/Foreign Body Stated complaint: Rash Time Seen by Provider: 08/12/24 17:36 Source: patient Mode of arrival: ambulatory Limitations: no limitations History of Present Illness HPI narrative: Tiffani is a 53-year-old female patient presenting to the clinic today with complaints of rash around her chin. She reports that this has been going on for a couple weeks and has gradually gotten worse. She spoke with her hat body sorter who told her to put Aquaphor lotion on it she said that has helped however over the last few days it has gotten worse. States his tender to touch and also itchy. No changes in soaps, shampoos, lotions detergents, or environment. Has had recent antibiotics and meds over the past month Related Data Home Medications Medication Instructions Recorded Confirmed apremilast 30 mg tablet (Otezla) mg PO 08/12/24 trazodone 50 mg tablet mg 08/12/24 Allergies Allergy/AdvReac Type Severity Reaction Status Date / Time cobalt Allergy Unknown Hives Verified 08/12/24 17:42 latex Allergy Unknown Hives Verified 08/12/24 17:42 Review of Systems Review of Systems: Pertinent positives per HPI. Patient denies any fever, chills, headache, visual changes, dizziness, cough, runny nose, sore throat, shortness of breath, chest pain, palpitations, nausea, vomiting, diarrhea, constipation, abdominal pain, or any urinary issues. [facility] Past Medical History Medical History Asthma Psoriasis Rheumatoid arthritis Surgical History Surgical History History of cholecystectomy History of hysterectomy Family History Family History Other Cerebrovascular accident Hypertension Social History Social History Smoking status: Former smoker Tobacco type: cigarettes Second hand tobacco smoke exposure: No Alcohol intake: current Substance use: never Living arrangements: with family Occupation/Education: occupation Gender identity (if verbalized by the patient): Female Sexual Orientation (if Verbalized by the Patient): Straight or Heterosexual Comments At the time of my signature, I reviewed and agree with the nursing past medical, surgical, social, and family history. There is no relevant family history pertinent to the patient complaint. Exam Narrative: General: Well-developed, well nourished, in no apparent distress Head: Normocephalic, atraumatic. Cardio: Regular rate and rhythm, s1 and s2 normal, no murmur appreciated. Resp: Clear to auscultation bilaterally, no rhonchi, rales, wheezing or rubs. Integumentary: [place], warm, and dry, red, mildly raised, itchy rash to the anterior chin Course Course Emergency Course: Portions of this record may have been created with voice recognition software. Level of Care: Express Care Visit Vital Signs Vital signs: Vital Signs Temperature 36.9 C 08/12/24 17:42 Pulse Rate 95 08/12/24 17:42 Respiratory Rate 16 08/12/24 17:42 Blood Pressure 139/95 H 08/12/24 17:42 Pulse Oximetry 100 08/12/24 17:42 Oxygen Delivery Room Air 08/12/24 17:42 Temperature 36.9 C 08/12/24 17:42 Pulse Rate 95 08/12/24 17:42 Respiratory Rate 16 08/12/24 17:42 Blood Pressure 139/95 H 08/12/24 17:42 Pulse Oximetry 100 08/12/24 17:42 Oxygen Delivery Room Air 08/12/24 17:42 Vital signs reviewed MDM - Skin/Abscess/Foreign Bdy MDM Narrative Medical decision making narrative: At the time of visit patient is resting comfortably on the exam table. Patient appears to be nontoxic. Plan: I suspect patient has dermatitis. Prescription for triamcinolone cream was sent to the pharmacy. Supportive measures were discussed with the patient and they voiced understanding discharge instructions and agrees to treatment plan. Return precautions reviewed Differential Diagnosis Differential diagnosis: Likely abscess of skin or subcutaneous tissue, viral exanthem, dermatophytosis, urticaria, herpes zoster, allergic reaction to drug, cellulitis, eczema, insect bites, impetigo and contact dermatitis Discharge Plan Discharge Clinical Impression: Dermatitis Patient Disposition: Home, Self-Care Condition: Stable Instructions: Antibiotic Form, Dermatitis (ED) Additional Instructions: Apply triamcinolone cream as directed Avoid hot showers Moisturize skin using Aquaphor, Lubriderm, or Cetaphil lotion Avoid scratching as this can cause a secondary infection May take benadryl 25-50mg every 6 hours as needed for itching. Follow up with your PCP in 3-5 days if symptoms persist or sooner if they worsen Go to the Emergency Room if symptoms worsen- fever, rash spreading with treatment, shortness of breath, tongue swelling, drooling, or chest pain Prescriptions: New triamcinolone acetonide 0.1 % cream 1 applic topical BID 7 Days Qty: 30 0RF No Action trazodone 50 mg tablet Otezla 30 mg tablet PO Follow-up/Referrals: Florence,ISMAEL Foster [Primary Care Provider] - Time of Disposition: 17:48 Quality NIHSS Nursing Documentation ED NIHSS nursing documentation: reviewed/agree
[2024-08-12 17:42] VITALS: BP 139/95; PULSE 95; RESP 16; TEMP 36.9; O2SAT 100
== END 2024-08-12 17:54 | disposition home or self-care (01) ==
PROVIDERS: Emergency Provider Nurse Practitioner Family; PCP Registered Nurse
DX: L30.9 Dermatitis, unspecified (principal); Z79.899 Other long term (current) drug therapy; Z87.891 Personal history of nicotine dependence
CPT/HCPCS: 99213; G0463

== ENCOUNTER 2024-10-27 02:49 | Emergency (ER) | payer BC, SELFPAY ==
--- OUTSIDE RECORDS SUMMARY | 2024-10-27 02:51 | XMS_ITS | Clinical Summary ---
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 Gender Identity Not on file Sexual Orientation Not on file Plan of Treatment Health Maintenance Due Date Last Done Comments Hepatitis C Virus (HCV) Screening 1972 TdaP Immunization 1972 Hepatitis B Immunization (1 of 3 - 19+ 3-dose series) 12/21/1991 Pap Smear 1993 Cervical Cancer Screening (CCS) 2002 HPV/Cotest 2002 Colonoscopy 2017 Colorectal Cancer Screening 2017 Cologuard 2022 Immunochemical Fecal Occult Blood 2022 Mammogram 2022 Pneumococcal Immunization (5 0+ years) (1 of 1 - PCV) 2022 Zoster Immunization (1 of 2) 2022 Influenza Immunization (#1) 2024 06/12/2020 SARS-COV-2 Immunization ( - season) 2024 Respiratory Syncytial Virus (RSV) Immunization (Adult) (1 - 1-dose 75+ series) 12/21/2047 Meningococcal Immunization (ACWY) Aged Out No longer eligible based on patient's age to complete this topic Pneumococcal Immunization Combined Aged Out No longer eligible based on patient's age to complete this topic Rotavirus Immunization Aged Out No lo nger eligible based on patient's age to complete this topic
--- OUTSIDE RECORDS SUMMARY | 2024-10-27 02:51 | XMS_ITS | Continuity of Care Document ---
Author Organization [facility] Address [address] [place] [address] Phone Care Team Providers Care Shrub Grower Name Role Phone Saravanan GRAMAJO, Michael Unavailable Unavailable Procedures Procedure Date TB INTRADERMAL TEST IMMUNIZATION ADMIN Advance Directives Directive Yes / No Effective Date File Name No Information Encounters Encounter Description Practice Location Reason(s) For Visit Diagnoses Date Provider Providers Copied on Encounter [facility], [address] [place], [place] [address], [id number], [place] tel:[phone] [facility] TB skin test (chief complaint) Screening examination for pulmonary tuberculosis Saravanan Rodriguez. [address], [id number] , [place]. tel:[phone] Referring Provider: Michael Coe, [address] [place], [place], [id number]. tel:[phone] Family History Family Member Type Diagnosis Age At Onset No Information Payers Payer name Insurance type Covered green party ID Authoriza tion(s) No Information Social History Type Description Quantity Date Captured Comments Sex Female Smoking Status No Information Chief Complaint And Reason For Visit From encounter dated '06/24/2012 09:00'. TB skin test (chief complaint) Plan Of Treatment Date Type Action Status No Information History Of Present Illness Encounter Date Complaint History Of Prese nt Illness No Information Instructions Date Instruction Additional Infor mation Return to office in 48-72hours R elated to Screening-Pulmonary TB Assessments Type Assessment Date No Information
--- OUTSIDE RECORDS SUMMARY | 2024-10-27 02:51 | XMS_ITS | Encounter Summary ---
Author Organization [facility] Address [address] [place] [address] Care Team Providers Care Time Study Statistician Name Role Phone Kristin Henriquez Primary Care Provider + Encounter Details Date Type Department Care Team (Late st Contact Info) Description 01/01/2024 Telephone [facility] [address] [place] [address] CarrierVonnie RN Social History Tobacco Use Types Packs/Day Years Used Date Smoking Tobacco: Former Smokeless Tobacco: Never Alcohol Use Standard Drinks/Week Comments No 0 (1 standard drink = 0.6 oz pur e alcohol) Hunger Vital Sign Answer Date Recorded Within the past 12 months, y ou worried that your food would run out before you got the money to buy more. Never true 01/03/20 24 Within the past 12 months, t he food you bought just didn't last and you didn't have money to get more. Never true 01/03/2024 Personal Safety Answer Date Recorded Have you ever been in or are you currently in a harmful physical or emotional relationship or is someone making you feel afraid or unsafe? 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
--- OUTSIDE RECORDS SUMMARY | 2024-10-27 02:52 | XMS_ITS | Encounter Summary ---
Author Organization [facility] Address [address] [place] [address] Phone Care Team Providers Care Reconnaissance Man Name Role Phone Kristin Henriquez Primary Care Provider + Encounter Details Date Type Department Care Team (Late st Contact Info) Description 08/18/2022 Orders Only [facility] Scanning, Provider Social History Tobacco Use Types Packs/Day Years Used Date Smoking Tobacco: Former Smokeless Tobacco: Never Alcohol Use Standard Drinks/Week Comments No 0 (1 standard drink = 0.6 oz pur e alcohol) Comments Unknown Sex and Gender Information Value Date Recorded Sex Assigned at Not on file 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 Gender Identity Not on file Sexual Orientation Not on file documented as of this encounter Plan of Treatment Not on file documented as of this encounter Procedures Procedure Name Priority Date/Time Associated Diagnosis Comments SCAN - RADIOLOGY/IMAGING 08/18/2022 documented in this encounter Results * SCAN - RADIOLOGY/IMAGING (08/18/2022) Anatomical Region Laterality Modality Other us Provider Scanning Edited Result - Final documented in this encounter Visit Diagnoses Not on filedocumented in this encounter Care Teams Reconnaissance Man Relationship Specialty Start Date End Date Kristin Henriquez PA [address] [place] [address] PCP - General Nurse Practitioner 11/18/19 documented as of this encounter
--- OUTSIDE RECORDS SUMMARY | 2024-10-27 02:52 | XMS_ITS | Encounter Summary ---
Author Organization [facility] Address [address] [place] [address] Care Team Providers Care Director Auto Name Role Phone Marilyn Simmons MD Unavailable [phone] Kristin Henriquez Primary Care Provider [phone] Encounter Details Date Type Department Care Team (Late Contact Info) Description 08/15/2024 [employer] Message Enc [facility] Family & Internal Medicine [address] [phone] [facility] Provider Cologuard results Social History Tobacco Use Types Packs/Day Years Used Date Smoking Tobacco: Former Cigarettes 1.5 20 1 2 - 2011 Smokeless Tobacco: Never Alcohol Use Standard Drinks/Week Comments Yes 10 (1 standard drink = 0.6 oz pu re alcohol) social PHQ-2 Answer Date Recorded PHQ-2 Score 0 12/15/2018 Comments No Sex and Gender Information Value Date Recorded Sex Assigned at Not on file Legal Sex Female 6:55 PM CDT Gender Identity Not on file Sexual Orientation Not on file 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 Not on file Not on file documented as of this encounter Plan of Treatment Upcoming Encounters Date Type Department Care Team (Late Contact Info) Description 10/29/2024 10:40 AM STUDENT SUCCESS ADVISOR Office Visit [facility] Family & Internal Medicine [address] [phone] Kristin Henriquez APNP [address] [place] [id number] documented as of this encounter Visit Diagnoses Not on filedocumented in this encounter Additional Health Concerns Assessment Noted Time PHQ-9 Depression Total Score: 0 10/29/19 19 8:51 AM STUDENT SUCCESS ADVISOR documented as of this encounter Care Teams Director Auto Relationship Specialty Start Date End Date Kristin Henriquez APNP Family & Internal Medicine [address] [address] PCP - General NURSE PRACTITIONER 05/18/18 Marilyn Simmons MD Ajith Furniture Refinisher INTERVENTIONAL CARDIOLOGY 05/09/18 documented as of this encounter
--- OUTSIDE RECORDS SUMMARY | 2024-10-27 02:52 | XMS_ITS | Encounter Summary ---
Author Organization [facility] Address [address] [place] [address] Care Team Providers Care Electrical Installation Supervisor Name Role Phone Marilyn Simmons MD Unavailable [phone] Kristin Henriquez Primary Care Provider [phone] Encounter Details Date Type Department Care Team (Latest Contact Info) Description 05/24/2018 Abstract [facility] , Jaime Zavala MD Social History Tobacco Use Types Packs/Day Years Used Date Smoking Tobacco: Former Cigarettes Q uit: 2012 Smokeless Tobacco: Never Alcohol Use Standard Drinks/Week Comments Yes 0 (1 standard drink = 0.6 oz pur e alcohol) social Comments Unknown Sex and Gender Information Value [...] Encounters Date Type Department Care Team (Late st Contact Info) Description 10/29/2024 10:40 AM LOAN ADMINISTRATOR Office Visit [facility] Family & Internal Medicine - [place] [address] [place] [address] Kristin Henriquez APNP [facility] [place] [address] documented as of this encounter Visit Diagnoses Not on filedocumented in this encounter Additional Health Concerns Infection Onset Date Last Indicated Resolved Time COVID-19 Rule Out 04/28/2020 04/29/2020 05/14/2020 11:54 AM CDT COVID-19 Rule Out 03/07/2022 03/07/2022 03/09/2022 2:44 AM CDT documented as of this encounter Care Teams Electrical Installation Supervisor Relationship Specialty Start Date End Date Kristin Henriquez APNP Family & Internal Medicine [address] [address] PCP - General NURSE PRACTITIONER 05/18/18 Marilyn Simmons MD [employer]ith Medical Economics Consultant INTERVENTIONAL CARDIOLOGY 05/09/18 documented as of this encounter
--- OUTSIDE RECORDS SUMMARY | 2024-10-27 02:52 | XMS_ITS | Referral Summary ---
Author Organization [facility] 2 Address [address] [place] [address] Care Team Providers Care Statistics Manager Name Role Phone Kristin Henriquez Primary Care Provider + Encounters Date Type Department Care Team Description 10/10/2024 1:00 PM BIOPHYSICS PROFESSOR Infusion [facility] [address] [place] [phone] Psoriatic arthritis (HCC) (Primary Dx) 09/12/2024 1:00 PM BIOPHYSICS PROFESSOR Infusion [facility] [address] [place] [phone] Psoriatic arthritis (HCC) (Primary Dx) 09/04/2024 Orders Only [facility] [address] [place] [phone] Valarie Miranda RN 08/27/2024 11:03 AM BIOPHYSICS PROFESSOR - 08/27/2024 11:59 PM BIOPHYSICS PROFESSOR Hospital Encounter [facility] [address] [address] Psoriatic arthritis (HCC) Discharge Disposition: Discharge to home or self care 08/27/2024 9:00 AM BIOPHYSICS PROFESSOR Lab [facility] Endocrinology Metabolism and Lipid Formerly [facility] [facility] 5th [place] [phone] Psoriatic arthritis (HCC); High risk medication use 08/27/2024 8:30 AM BIOPHYSICS PROFESSOR Office Visit [facility] Rheumatology Formerly [facility] 5th [place] [address] [place] [phone] Tigist Bentley MD Psoriatic arthritis (HCC) (Primary Dx); High risk medication use 08/01/2024 1:00 PM BIOPHYSICS PROFESSOR Infusion [facility] [address] [place] [phone] Psoriatic arthritis (HCC) (Primary Dx) from Last 3 Months Allergies Active Allergy Reactions Criticality Noted Date Comments [place] Other (See comments) Low 03/04/2018 Worsening psoriasis Latex Rash Medium 01/02/2013 Rash Medications EAR DROPS, CARBAMIDE PEROXIDE, 6.5 % otic solutionIndica tions:Impacted Cerumen 0 04/22/20 18 Active pimecrolimus (ELIDEL) 1 % cream 01/03/20 13 Active HYDROcodone-ib uprofen (VICOPROFEN) 7.5-200 mg per tabletIndicati ons:Pain as needed for pain 0 05/01/20 18 Active mupirocin (BACTROBAN) 2 % ointment 01/03/20 13 Active albuterol HFA (PROVENTIL HFA,VENTOLIN HFA,PROAIR HFA) 90 mcg/actuation inhaler 02/10/20 20 Active olopatadine (PATANOL) 0.1 % ophthalmic solution 01/01/20 20 Active azithromycin (ZITHROMAX) 250 mg tablet 04/28/20 20 Active budesonide-for moteroL (SYMBICORT) 80-4.5 mcg/actuation inhaler Inhale 2 puffs 2 (two) times a day 04/14/20 20 Active fluticasone propionate (FLONASE) 50 mcg/actuation nasal spray Administer 2 sprays into affected nostril(s) daily 05/14/20 20 Active loratadine (CLARITIN) 10 mg tablet Take 1 tablet (10 mg total) by mouth as needed 05/14/20 20 Active montelukast (SINGULAIR) 10 mg tablet Take 1 tablet (10 mg total) by mouth as needed 05/14/20 20 Active Trelegy Ellipta 200-62.5-25 mcg inhaler TAKE 1 PUFF EVERY DAY IN THE MORNING 11/17/19 21 Active leflunomide (ARAVA) 20 mg tabletIndicati ons:Rheumatoid Arthritis Take 1 tablet (20 mg total) by mouth daily 90 tablet 3 08/14/20 23 Active Additional Information Patient not taking.Reported on 07/24/2024 potassium chloride ER 20 mEq CR tablet Take 1 tablet (20 mEq total) by mouth as needed 05/08/20 24 Active inFLIXimab (REMICADE) 100 mg injection Infuse into a venous catheter Active diclofenac DR (VOLTAREN) 50 mg EC tablet Take 1 tablet (50 mg total) by mouth 2 (two) times a day 07/09/20 24 Active HYDROcodone-ac etaminophen (NORCO) 5-325 mg per tablet Take 1 tablet by mouth every 6 (six) hours as needed 07/09/20 24 Active traZODone (DESYREL) 50 mg tablet Take one half tablet once daily 07/17/20 24 Active triamcinolone (KENALOG) 0.1 % cream APPLY 1 APPLICATION TOPICALLY TWICE A DAY FOR 7 DAYS 08/12/20 24 Active predniSONE (DELTASONE) 5 mg tablet Take 4 tablets (20 mg) by mouth daily for 4 days, THEN 3 tablets (15 mg) daily for 4 days, THEN 2 tablets (10 mg) daily for 4 days, THEN 1 tablet (5 mg) daily. 96 tablet 08/27/20 24 025 Active Otezla 30 mg tabletIndicati ons:Psoriatic arthritis (HCC) TAKE 1 TABLET BY MOUTH 2 TIMES A DAY 180 tablet 10/15/19 25 Active apremilast 30 mg tabletIndicati ons:Psoriatic arthritis (HCC) Take 1 tablet (30 mg total) by mouth 2 (two) times a day 180 tablet 08/01/20 24 025 Discontinued Active Problems Problem Noted Date Diagnosed Date Pain in extremity 01/11/2021 Right elbow pain 11/23/2020 Paresthesia of left foot 11/18/2019 Left foot pain 11/18/2019 Erythematous papules of skin 11/12/2018 Psoriatic arthritis 08/30/2017 Knee pain 08/30/2017 Fatigue 07/03/2017 Primary osteoarthritis of right knee 12/30/2014 High risk medication use 07/07/2013 Eczema 07/07/2013 Lateral epicondylitis 03/01/2013 Fibromyalgia 10/25/2012 Arthralgia 10/25/2012 Psoriasis 06/20/2012 Acne 01/03/2011 Encounter for preventive health examination 03/2011 Immunizations Name Administration Dates Next Due Influenza, Quad, Adjuvantated, Intramuscular Influenza, Quadrivalent, Paula l Culture-based MDCK, Antibiotic Free, Intramuscular 07/11/2018 Influenza, Quadrivalent, Paula l Culture-based MDCK, Preservative Free, Antibiotic Free, Intramuscular 06/17/2019 Social History Tobacco Use Types Packs/Day Years Used Date Smoking Tobacco: Former Smokeless Tobacco: Never Tobacco Cessation:Counseling Given: Not Answered Alcohol Use Standard Drinks/Week Comments No 0 (1 standard drink = 0.6 oz pur e alcohol) Hunger Vital Sign Answer Date Recorded Within the past 12 months, y ou worried that your food would run out before you got the money to buy more. Never true 10/10/19 25 Within the past 12 months, t he food you bought just didn't last and you didn't have money to get more. Never true 10/10/2024 Personal Safety Answer Date Recorded Have you ever been in or are you currently in a harmful physical or emotional relationship or is someone making you feel afraid or unsafe? Denies 10/10/2024 Comments Unknown Sex and Gender Information Value Date Recorded Sex Assigned at Not on file Legal Sex Female 9:19 AM BIOPHYSICS PROFESSOR Gender Identity Not on file Sexual Orientation Not on file Last Filed Vital Signs Vital Sign Reading Time Taken Comments Blood Pressure 156/70 10/10/2024 3:30 PM BIOPHYSICS PROFESSOR Pulse 94 10/10/2024 3:30 PM BIOPHYSICS PROFESSOR Temperature 36.4 C (97.5 F) 10/10/2024 12:50 PM BIOPHYSICS PROFESSOR Respiratory Rate 16 10/10/2024 12:50 PM BIOPHYSICS PROFESSOR Oxygen Saturation 100% 10/10/2024 3:30 PM BIOPHYSICS PROFESSOR Inhaled Oxygen Concentration - - Weight 82.1 kg (181 lb) 10/10/2024 12:50 PM BIOPHYSICS PROFESSOR Height 162.6 cm (5' 4 ) 10/10/2024 12:50 PM BIOPHYSICS PROFESSOR Body Mass Index 31.07 10/10/2024 12:50 PM BIOPHYSICS PROFESSOR Plan of Treatment Not on file Procedures Procedure Name Priority Date/Time Associated Diagnosis Comments ERYTHROCYTE SEDIMENTATION RATE Routine 08/27/2024 8:52 AM BIOPHYSICS PROFESSOR Psoriatic arthritis (HCC) CRP (ACUTE PHASE) Routine 08/27/2024 8:5 2 AM BIOPHYSICS PROFESSOR Psoriatic arthritis (HCC) COMPREHENSIVE METABOLIC PANEL Routine 08/27/2024 8:52 AM BIOPHYSICS PROFESSOR Psoriatic arthritis (HCC) High risk medication use CBC WITH AUTO DIFFERENTIAL Routine 08/27/2024 8:52 AM BIOPHYSICS PROFESSOR Psoriatic arthritis (HCC) High risk medication use HEPATITIS C ANTIBODY Routine 04/20/2021 7:23 PM CDT Pain in extremity, unspecified extremity Psoriatic arthritis (CMS/HCC) (HCC) High risk medication use from Last 3 Months or Most Recently Relevant to Health Maintenance Results * (ABNORMAL) CBC with auto differential (08/27/2024 8:52 AM BIOPHYSICS PROFESSOR) Pathologist [facility] White Blood Count 9.8 3.6 - 11.2 K/uL [facility] RBC 4.72 3.63 - 4.92 M/uL [facility] Hemoglobin 13.8 11.9 - 15.5 g/dL [facility] Hematocrit 40.1 36.1 - 44.3 % [facility] MCV 85.0 80.0 - 97.6 fL [facility] MCH 29.2 26.7 - 33.7 pg [facility] MCHC 34.4 32.7 - 35.5 g/dL [facility] RBC Dist Width 13.4 12.3 - 17.0 % [facility] Platelet Count 426 140 - 440 K/uL [facility] MPV 8.0 6.8 - 10.4 fL [facility] Neutrophils % 70.2 38.7 - 74.5 % [facility] Lymphocyte % 20.9 20.0 - 54.3 % [facility] Monocytes % 5.3 4.3 - 13.5 % [facility] Eosinophils % 2.4 0.0 - 6.0 % [facility] Basophil % 1.2 0.0 - 3.0 % [facility] Absolute Neutrophil 6.9(H) 1.8 - 6.6 K/uL [facility] Absolute Lymphocyte 2.1 0.8 - 3.3 K/uL [facility] Absolute Monocyte 0.5 0.2 - 1.2 K/uL [facility] Absolute Eosinophil 0.2 0.0 - 0.5 K/uL [facility] Absolute Basophil 0.1 0.0 - 0.2 K/uL [facility] Nucleated RBC % 0.1 0.0 - 0.4 /100 WBC [facility] Blood 08/27/2024 8:52 AM BIOPHYSICS PROFESSOR 08/27/2024 9:58 AM BIOPHYSICS PROFESSOR Tigist Escoto MD LAB BL OOD ORDERABLES Final Result [facility] * (ABNORMAL) Erythrocyte sedimentation rate (08/27/2024 8:52 AM BIOPHYSICS PROFESSOR) Erythrocyte sedimentation rate 41(H) 1 - 30 mm/hr Blood 08/27/2024 8:52 AM BIOPHYSICS PROFESSOR 08/27/2024 11:55 AM BIOPHYSICS PROFESSOR Tigist Escoto MD LAB BL OOD ORDERABLES Final Result Performing Organization Address City/[facility]/ZIP Co de Phone Number [facility] Department [place] [address] * (ABNORMAL) CRP (acute phase) (08/27/2024 8:52 AM BIOPHYSICS PROFESSOR) C-Reactive Protein, Acute 41.0(H) <5.0 mg/L [facility] Blood 08/27/2024 8:52 AM BIOPHYSICS PROFESSOR 08/27/2024 9:58 AM BIOPHYSICS PROFESSOR Tigist Escoto MD LAB BL OOD ORDERABLES Final Result [facility] * (ABNORMAL) Comprehensive metabolic panel (08/27/2024 8:52 AM BIOPHYSICS PROFESSOR) Total Protein 7.3 6.1 - 8.4 g/dL [facility] Albumin 3.7 3.5 - 5.2 g/dL [facility] Calcium 9.4 8.6 - 10.3 mg/dL [facility] BUN 8 7 - 23 mg/dL [facility] Total Bilirubin 0.28 0.20 - 1.40 mg/dL [facility] Alk Phos, Total 144(H) 35 - 129 IU/L [facility] AST (SGOT) 14 11 - 47 IU/L [facility] ALT (SGPT) 13 6 - 53 IU/L [facility] Creatinine 0.75 0.60 - 1.10 mg/dL [facility] Sodium 137 135 - 145 mmol/L [facility] Potassium 3.7 3.3 - 5.1 mmol/L [facility] Chloride 100 95 - 107 mmol/L [facility] CO2 Content 24 21 - 29 mmol/L [facility] Glucose 195(H) 64 - 99 mg/dL [facility] Comment: NONFASTING GLUCOSE RANGE = 64-199 mg/dL FASTING GLUCOSE 64 - 99 = NORMAL FASTING GLUCOSE 100 - 125 = IMPAIRED FASTING GLUCOSE FASTING GLUCOSE >=126 = PROVISIONAL DIAGNOSIS OF DIABETES eGFR >90.0 >60.0 mL/min/1.7 3 m2 [facility] Blood 08/27/2024 8:52 AM BIOPHYSICS PROFESSOR 08/27/2024 9:58 AM BIOPHYSICS PROFESSOR Tigist Escoto MD LAB BL OOD ORDERABLES Final Result [facility] * Hepatitis C antibody (04/20/2021 7:23 PM CDT) Hep C Ab Nonreactive Nonreactive [facility] Comment:Antibodies to HCV no t detected. Does NOT exclude the possibility of recent exposure to HCV. Blood specimen (specimen) 04/20/2021 7:23 PM CDT 04/20/2021 8:13 PM CDT us Thania Zamarripa NP LAB MICROBIOLOGY - GENERA L ORDERABLES Edited Result - Final [facility] Department [place] [address] from Last 3 Months or Most Recently Relevant to Health Maintenance [place] [facility] Care Teams Statistics Manager Relationship Specialty Start Date End Date Kristin Henriquez PA [address] [place] [phone] PCP - General Nurse Practitioner 11/18/19
--- OUTSIDE RECORDS SUMMARY | 2024-10-27 02:52 | XMS_ITS | Clinical Summary ---
Author Organization [facility] 2 Address [address] [facility] [place] [address] Care Team Providers Care Belt Measurer Name Role Phone Kristin Henriquez Primary Care Provider + Allergies Active Allergy Reactions Criticality Noted Date Comments [place] Other (See comments) Low 03/04/2018 Worsening psoriasis [...] mg total) by mouth as needed 05/14/20 Active montelukast (SINGULAIR) 10 mg tablet Take 1 tablet (10 mg total) by mouth as needed 05/14/20 Active Trelegy Ellipta 200-62.5-25 mcg inhaler TAKE 1 PUFF EVERY DAY IN THE MORNING 11/17/19 Active leflunomide (ARAVA) 20 mg tabletIndicati ons:Rheumatoid [...] mouth 2 (two) times a day 07/09/20 Active HYDROcodone-ac etaminophen (NORCO) 5-325 mg per [...] 01/03/2011 Encounter for preventive health examination 03/2011 Encounters Date Type Department Care Team Description 10/10/2024 1:00 PM ACTIVITY COORDINATOR Infusion [facility] [address] [place] [phone] Psoriatic arthritis (HCC) (Primary Dx) 09/12/2024 1:00 PM ACTIVITY COORDINATOR Infusion [facility] [address] [place] [phone] Psoriatic arthritis (HCC) (Primary Dx) 09/04/2024 Orders Only [facility] [address] [place] [address] Ave [address] [place] [phone] Valarie Miranda RN 08/27/2024 11:03 AM ACTIVITY COORDINATOR - 08/27/2024 11:59 PM ACTIVITY COORDINATOR Hospital Encounter [address] [address] Psoriatic arthritis (HCC) Discharge Disposition: Discharge to home or self care 08/27/2024 9:00 AM ACTIVITY COORDINATOR Lab [facility] Endocrinology Metabolism and Lipid [address] [facility] [facility] [address] 5th [place] [phone] Psoriatic arthritis (HCC); High risk medication use 08/27/2024 8:30 AM ACTIVITY COORDINATOR Office Visit [facility] Rheumatology [address] [facility] [address] 5th [place] [phone] Tigist Bentley MD Psoriatic arthritis (HCC) (Primary Dx); High risk medication use 08/01/2024 1:00 PM ACTIVITY COORDINATOR Infusion [facility] [address] [place] [phone] Psoriatic arthritis (HCC) (Primary Dx) from Last 3 Months Immunizations Name Administration Dates Next Due Influenza, Quad, Adjuvantated, Intramuscular Influenza, Quadrivalent, Paula l Culture-based MDCK, Antibiotic Free, Intramuscular 07/11/2018 Influenza, Quadrivalent, Paula l Culture-based MDCK, Preservative Free, Antibiotic Free, Intramuscular 06/17/2019 Family History Medical History Relation Name Comments Arthritis Father Family history of arthritis - (Added by [employer] Conv) Osteoarthritis Father Family histor y of osteoarthritis - (Added by [employer] Conv) Osteoarthritis Mother Family histor y of osteoarthritis - (Added by [employer] Conv) Rheum arthritis Mother Family histo ry of rheumatoid arthritis - (Added by [employer] Conv)/Family history of rheumatoid arthritis - (Added by Vayyar) Relation Name Status Comments Father Mother Social History Tobacco Use Types Packs/Day Years [...] on file Legal Sex Female 9:19 AM ACTIVITY COORDINATOR Gender Identity Not on file Sexual Orientation Not on file Obstetrics History Last Filed Vital Signs Vital Sign Reading Time Taken Comments Blood Pressure 156/70 10/10/2024 3:30 PM ACTIVITY COORDINATOR Pulse 94 10/10/2024 3:30 PM ACTIVITY COORDINATOR Temperature 36.4 C (97.5 F) 10/10/2024 12:50 PM ACTIVITY COORDINATOR Respiratory Rate 16 10/10/2024 12:50 PM ACTIVITY COORDINATOR Oxygen Saturation 100% 10/10/2024 3:30 PM ACTIVITY COORDINATOR Inhaled Oxygen Concentration - - Weight 82.1 kg (181 lb) 10/10/2024 12:50 PM ACTIVITY COORDINATOR Height 162.6 cm (5' 4 ) 10/10/2024 12:50 PM ACTIVITY COORDINATOR Body Mass Index 31.07 10/10/2024 12:50 PM ACTIVITY COORDINATOR Plan of Treatment Health Maintenance Due Date Last Done Comments Breast Cancer Screening-Mammogram 1972 Cervical Cancer Screening 1972 Colon Cancer Screening-Colonoscopy 1972 Depression Screening 1972 Pneumococcal vaccine <65 (1 of 2 - PCV) 1978 Regular Well Visit/Exam 18-64 1990 Zoster Vaccine (1 of 2) 12/21/1991 Influenza Vaccine (#1) 2024 , 06/12/2020, 06/17/2019, Additional history exists DTaP/Tdap/Td Vaccine (2 - Td or Tdap) 05/08/2031 05/08/2021 Hepatitis C Screening Completed 04/20/2021, 014 Hepatitis B Screening Completed 10/23/2023 Procedures Procedure Name Priority Date/Time Associated Diagnosis Comments ERYTHROCYTE SEDIMENTATION RATE Routine 08/27/2024 8:52 AM ACTIVITY COORDINATOR Psoriatic arthritis (HCC) CRP (ACUTE PHASE) Routine 08/27/2024 8:5 2 AM ACTIVITY COORDINATOR Psoriatic arthritis (HCC) COMPREHENSIVE METABOLIC PANEL Routine 08/27/2024 8:52 AM ACTIVITY COORDINATOR Psoriatic arthritis (HCC) High risk medication use CBC WITH AUTO DIFFERENTIAL Routine 08/27/2024 8:52 AM ACTIVITY COORDINATOR Psoriatic arthritis (HCC) High risk medication use HEPATITIS C ANTIBODY Routine 04/20/2021 7:23 PM CDT Pain in extremity, unspecified extremity Psoriatic arthritis (CMS/HCC) (HCC) High risk medication use from Last 3 Months or Most Recently Relevant to Health Maintenance Results * (ABNORMAL) CBC with auto differential (08/27/2024 8:52 AM ACTIVITY COORDINATOR) White Blood Count 9.8 3.6 - 11.2 [...] [facility] Blood 08/27/2024 8:52 AM ACTIVITY COORDINATOR 08/27/2024 9:58 AM ACTIVITY COORDINATOR Tigist Escoto MD LAB BL OOD ORDERABLES Final Result [facility] * (ABNORMAL) Erythrocyte sedimentation rate (08/27/2024 8:52 AM ACTIVITY COORDINATOR) Erythrocyte sedimentation rate 41(H) 1 - 30 mm/hr Blood 08/27/2024 8:52 AM ACTIVITY COORDINATOR 08/27/2024 11:55 AM ACTIVITY COORDINATOR us Tigist Escoto MD LAB BL OOD ORDERABLES Final Result [facility] [place] [address] * (ABNORMAL) CRP (acute phase) (08/27/2024 8:52 AM ACTIVITY COORDINATOR) C-Reactive Protein, Acute 41.0(H) <5.0 mg/L [facility] Blood 08/27/2024 8:52 AM ACTIVITY COORDINATOR 08/27/2024 9:58 AM ACTIVITY COORDINATOR Tigist Escoto MD LAB BL OOD ORDERABLES Final Result [facility] * (ABNORMAL) Comprehensive metabolic panel (08/27/2024 8:52 AM ACTIVITY COORDINATOR) Total Protein 7.3 6.1 - 8.4 g/dL [...] [facility] Blood 08/27/2024 8:52 AM ACTIVITY COORDINATOR 08/27/2024 9:58 AM ACTIVITY COORDINATOR us Tigist Escoto MD LAB BL OOD ORDERABLES Final Result [facility] * Hepatitis C antibody (04/20/2021 7:23 PM CDT) Hep C Ab Nonreactive Nonreactive [facility] Comment:Antibodies to HCV no t detected. Does NOT exclude the possibility of recent exposure to HCV. Blood specimen (specimen) 04/20/2021 7:23 PM CDT 04/20/2021 8:13 PM CDT us Thania Zamarripa NP LAB MICROBIOLOGY - GENERA L ORDERABLES Edited Result - Final Performing Organization Address City/[facility] Co de Phone Number [facility] Department [place] [address] from Last 3 Months or Most Recently Relevant to Health Maintenance Insurance [facility] [place] Care Teams Belt Measurer Relationship Specialty Start Date End Date Kristin Henriquez PA [address] [place] [phone] PCP - General Nurse Practitioner 11/18/19
--- OUTSIDE RECORDS SUMMARY | 2024-10-27 02:52 | XMS_ITS | Clinical Summary ---
Author Organization [facility] Address [address] [place] [address] Care Team Providers Care Implementation Technician Name Role Phone Marilyn Simmons MD Unavailable [phone] Kristin Henriquez Primary Care Provider [phone] Allergies Active Allergy Reactions Criticality Noted Date Comments [place] Hives Low 05/22/2018 Latex Hives Low 05/22/2018 Medications clobetasol 0.05 % ointment APPLY A THIN LAYER TO ITCHY RASH ON HANDS TWICE DAILY NEEDED 1 Active NEBULIZER/TUBING /MOUTHPIECE KIT, DME,Indications: Moderate persistent asthma without complication (HHS/HCC) 1 kit by Other route 2 (two) times daily. 1 kit 0 Active loratadine (CLARITIN) 10 MG tabletIndication s:Seasonal allergies Take 1 tablet (10 mg total) by mouth daily. 90 tablet 3 0 Active FLUTICASONE PROPIONATE 50 MCG/ACT nasal sprayIndications :Seasonal allergies SPRAY 2 SPRAYS INTO EACH NOSTRIL EVERY DAY 48 mL 1 1 Active TRELEGY ELLIPTA 200-62.5-25 MCG/INH AEROSOL POWDER, BREATH ACTIVATED INHALE ONE PUFF EVERY DAY IN THE MORNING 2 Active albuterol sulfate HFA 108 (90 Base) MCG/ACT inhalerIndicatio ns:Cough INHALE 2 PUFFS BY MOUTH EVERY 4 HOURS NEEDED FOR COUGH and WHEEZING 18 g 1 2 Active potassium chloride CR (K-TAB) 20 MEQ tablet Take 1 tablet (20 mEq total) by mouth 2 (two) times daily. 4 Active predniSONE (DELTASONE) 5 mg tablet Take 1 tablet (5 mg total) by mouth daily. Active diclofenac EC (VOLTAREN) 50 MG tablet Take 1 tablet (50 mg total) by mouth 2 (two) times daily. 30 tablet 4 Active HYDROcodone-acet aminophen (NORCO) 5-325 MG tabletIndication s:Acute Pain < 7 Day Supply Take 1 tablet by mouth every 6 (six) hours as needed. Indications: Acute Pain < 7 Day Supply 10 tablet 4 Active Apremilast 10 & 20 & 30 MG Tablet Therapy Pack Initial: 10 mg in the morning on day 1. Titrate upward by additional 10 mg per day on days 2 to 5 as follows: Day 2: 10 mg twice daily; Day 3: 10 mg in the morning and 20 mg in the evening; Day 4: 20 mg twice daily; Day 5: 20 mg in the morning and 30 mg in the evening. Maintenance dose: 30 mg twice daily starting on day 6. 4 Active inFLIXimab (REMICADE IV) Active traZODone (DESYREL) 50 MG tabletIndication s:Primary insomnia Take one half tablet once daily 60 tablet 4 Active Active Problems Problem Noted Date Diagnosed Date Psoriatic arthritis ([facility]) 07/17/2024 Asthma ([facility]) 04/14/2020 Paresthesia of left foot 11/18/2019 Fatigue 07/03/2017 Insomnia 07/03/2017 Anemia 11/03/2016 Primary osteoarthritis of right knee 12/30/2014 Elevated liver enzymes 09/24/2014 Fibromyalgia 09/15/2013 Anxiety 09/15/2013 Eczema 07/07/2013 Psoriasis 06/20/2012 Acne 01/03/2011 Chest pain in adult Shortness of breath at rest Resolved Problems Problem Noted Date Diagnosed Date Resolved Date Erythematous papules of skin 11/12/2018 07/17/2024 Lateral epicondylitis 03/01/20132023 Encounters Date Type Department Care Team Description 08/15/2024 Leigh Message Enc [facility] Family & Internal Medicine [address] [address] [facility] Provider Cologuard results 08/12/2024 Scan HEALTH INFO SRVCS Scanned, Doc Med Group from Last 3 Months Immunizations Name Administration Dates Next Due Fluzone 6 Months+ Quad (0.5 mL Prefilled Syringe) 06/12/2020 Influenza (Generic) 08/03/2021 Influenza Adult (Generic) 06/12/2020,06/17/2019, 07/11/2018 Tdap (Generic) 05/08/2021 Family History Medical History Relation Comments Arthritis Father Asthma Father COPD COPD Father Cancer Father LUNG CANCER Hypertension Father Asthma Mother COPD Mother Stroke Mother Diabetes Other Hypertension Other alzheimers Other stroke syndrome Other Early Paternal Grandmother Heart Attack Paternal Grandmother Relation Status Comments Father Alive Maternal Grandfather Maternal Grandmother Mother Alive Other Paternal Grandfather Paternal Grandmother Sister 1 Alive Sister 2 Alive Social History Tobacco Use Types Packs/Day Years Used Date Smoking Tobacco: Former Cigarettes 1.5 20 1 - 2011 Smokeless Tobacco: Never Tobacco Cessation:Counseling Given: Yes Alcohol Use Standard Drinks/Week Comments Yes 10 [...] file Not on file Not on file Last Filed Vital Signs Vital Sign Reading Time Taken Comments Blood Pressure 114/78 07/17/2024 3:46 PM CDT Pulse 94 07/17/2024 3:46 PM CDT Temperature 36.7 C (98.1 F) 07/17/2024 3:46 PM CDT Respiratory Rate 16 07/17/2024 3:46 PM CDT Oxygen Saturation 96% 07/17/2024 3:46 PM CDT Inhaled Oxygen Concentration - - Weight 83.5 kg (184 lb) 07/17/2024 3:46 PM CDT Height 162.6 cm (5' 4 ) 07/17/2024 3:46 PM CDT Body Mass Index 31.58 07/17/2024 3:46 PM CDT Plan of Treatment Upcoming Encounters Date Type Department Care Team (Late st Contact Info) Description 10/29/2024 10:40 AM HEEL BUILDER Office Visit [facility] Family & Internal Medicine - [id number] [place] [address] Kristin Henriquez APNP [address] [place] [id number] Health Maintenance Due Date Last Done Comments Pneumococcal Vaccine: Pediatrics (0 to 5 Years) and At-Risk Patients (6 to 64 Years) (1 of 2 - PCV) 1978 Hepatitis B Vaccines (1 of 3 - 19+ 3-dose series) 12/21/1991 Mammogram Screening 2012 Lung Cancer Screening 2022 Zoster Vaccines (1 of 2) 2022 COVID-19 Vaccine ( - season) 2024 07/29/2021, 11/19/2020 Influenza Adult (#1) 2024 08/03/2021, 06/12/2020, 06/12/2020, Additional history exists PHQ-2 (Physician [place]) 09/17/2024 Annual Physical 07/17/2025 07/17/2024 Colorectal Cancer Screening FIT-DNA (3 Years) 08/06/2027 08/06/2024 DTaP, Tdap and Td Vaccines (2 - Td or Tdap) 05/08/2031 05/08/2021 Hepatitis C 07/17/2054 Postponed from 1990 (Patient Refused) Meningococcal B Vaccine Aged Out No l onger eligible based on patient's age to complete this topic Meningococcal Vaccine Aged Out No falguni santiago eligible based on patient's age to complete this topic RSV Immunizations Under 20 Months Aged Out No longer eligible based on patient's age to complete this topic Procedures Procedure Name Priority Date/Time Associated Diagnosis Comments COLOGUARD (EXACT SCIENCE) Routine 08/06/2024 6:30 AM HEEL BUILDER Colon cancer screening from Last 3 Months Results * COLOGUARD (EXACT SCIENCE) (08/06/2024 6:30 AM HEEL BUILDER) COLOGUARD RESULT Negative Negative [employer] (CLIA #:[id number]) Comment: NEGATIVE TEST RESULT. A negative Cologuard result indicates a low likelihood that a colorectal cancer (CRC) or advanced adenoma (adenomatous polyps with more advanced pre-malignant features) is present. The chance that a person with a negative Cologuard test has a colorectal cancer is less than 1 in 1500 (negative predictive value >99.9%) or has an advanced adenoma is less than 5.3% (negative predictive value 94.7%). These data are based on a prospective cross-sectional study of 10,000 individuals at average risk for colorectal cancer who were screened with both Cologuard and colonoscopy. (Jarad Shen. et al, N Engl J Med 2014;370(14):0529-9759) The normal value (reference range) for this assay is negative. COLOGUARD RE-SCREENING RECOMMENDATION: Periodic colorectal cancer screening is an important part of preventive healthcare for asymptomatic individuals at average risk for colorectal cancer. Following a negative Cologuard result, the [place] [employer] Cancer Society and U.S. Multi-Society Task Force screening guidelines recommend a Cologuard re-screening interval of 3 years. References: [place] [employer] Guideline for Colorectal Cancer Screening: https://www.cancer.org/cancer/mbmzl-amwfbl-tjjqlx/lmtmlogbj-pstliwfsa-xstrsmh/ac s-rec ommendations.html.; Conor TOBIN, Juvencio MACHADO, Shorty JeronimoK, Colorectal Cancer Screening: Recommendations for Physicians and Patients from the U.S. Multi-Society Task Force on Colorectal Cancer Screening , Am J Gastroenterology 2017; 112:4580-2676. TEST DESCRIPTION: Composite algorithmic analysis of stool DNA-biomarkers with hemoglobin immunoassay. Quantitative values of individual biomarkers are not reportable and are not associated with individual biomarker result reference ranges. Cologuard is intended for colorectal cancer screening of adults of either sex, 45 years or older, who are at average-risk for colorectal cancer (CRC). Cologuard has been approved for use by the U.S. FDA. The performance of Cologuard was established in a cross sectional study of average-risk adults aged 50-84. Cologuard performance in patients ages 45 to 49 years was estimated by sub-group analysis of near-age groups. Colonoscopies performed for a positive result may find as the most clinically significant lesion: colorectal cancer [4.0%], advanced adenoma (including sessile serrated polyps greater than or equal to 1cm diameter) [20%] or non- advanced adenoma [31%]; or no colorectal neoplasia [45%]. These estimates are derived from a prospective cross-sectional screening study of 10,000 individuals at average risk for colorectal cancer who were screened with both Cologuard and colonoscopy. (Jarad Thapa al, N Engl J Med 2014;370(14):7364-6068.) Cologuard may produce a false negative or false positive result (no colorectal cancer or precancerous polyp present at colonoscopy follow up). A negative Cologuard test result does not guarantee the absence of CRC or advanced adenoma (pre-cancer). The current Cologuard screening interval is every 3 years. ([place] [employer] Cancer Society and U.S. Multi-Society Task Force). Cologuard performance data in a 10,000 patient pivotal study using colonoscopy as the reference method can be accessed at the following location: www.[employer]/results. Additional description of the Cologuard test process, warnings and precautions can be found at www.[employer].com. STOOL STOOL SPECIMEN / Unknown 08/06/2024 6:30 AM HEEL BUILDER 08/07/2024 10:07 AM HEEL BUILDER Kristin ARROYO [employer] STOOL[employer] MATTHEW RICHARD Final Result Active Implants, [facility] [address] [place] [address], Active Implants (CLIA #:[id number]) [address] [place] [address] from Last 3 Months Insurance [facility] [[email or web address]] Care Teams Implementation Technician Relationship Specialty Start Date End Date Kristin Henriquez APNP Family & Internal Medicine [place] [address] [place] [address] PCP - General NURSE PRACTITIONER 05/18/18 Marilyn Simmons MD Ajith Centura Technical Lead Senior Developer INTERVENTIONAL CARDIOLOGY 05/09/18
--- OUTSIDE RECORDS SUMMARY | 2024-10-27 02:52 | XMS_ITS | Encounter Summary ---
Author Organization [facility] Address [address] [place] [address] Care Team Providers Care Moisture Machine Tender Name Role Phone Marilyn Simmons MD Unavailable [phone] Kristin Henriquez Primary Care Provider [phone] Encounter Details Date Type Department Care Team (Late st Contact Info) Description 05/29/2018 Abstract [facility] at [address] [address] Radha Simmons MA Social History Tobacco Use Types Packs/Day Years [...] st Contact Info) Description 10/29/2024 10:40 AM DISASTER RESPONSE DIRECTOR Office Visit [facility] Family & Internal Medicine [facility] [address] [place] [id number] Kristin Henriquez APNP [address] [place], [place] [id number] documented as of this encounter Procedures Procedure Name Priority Date/Time Associated Diagnosis Comments CBC (OUTSIDE LAB) Routine 04/22/2018 BASIC METABOLIC PANEL Routine 04/22/2018 documented in this encounter Results * BASIC METABOLIC PANEL (04/22/2018) SODIUM S/P/B 143 POTASSIUM S/P/B 3.8 CO2 28 CHLORIDE S/P/B 105 GLUCOSE 95 mg/dL CALCIUM S/P/B 9.6 BUN 12 CREATININE S/P/B 0.8 0.5 - 1.0 EGFR NON-AFR. AMER. >60 <=90 04/22/2018 us Doc [facility] Abstract LABORATORY Final Result * CBC (OUTSIDE LAB) (04/22/2018) WBC 6.0 HGB 14.5 HCT 42.5 PLT 285 04/22/2018 us Doc [facility] Abstract LAB-OUTSIDE/ABSTRACTED Final Result documented in this encounter Visit Diagnoses Not on filedocumented in this encounter Additional Health Concerns Infection Onset Date Last Indicated Resolved Time COVID-19 Rule Out 04/28/2020 04/29/2020 05/14/2020 11:54 AM CDT COVID-19 Rule Out 03/07/2022 03/07/2022 03/09/2022 2:44 AM CDT documented as of this encounter Care Teams Moisture Machine Tender Relationship Specialty Start Date End Date Kristin Henriquez APNP Family & Internal Medicine [address] [address] PCP - General NURSE PRACTITIONER 05/18/18 Marilyn Simmons MD Orient Cleaner Assistant INTERVENTIONAL CARDIOLOGY 05/09/18 documented as of this encounter
[2024-10-27 02:59] VITALS: BP 136/93; PULSE 100; RESP 18; TEMP 37.1; O2SAT 99
--- NOTE | 2024-10-27 03:34 | ED.SKABFB ---
HPI - Skin/Abscess/Foreign Bdy General Chief complaint: Skin/Abscess/Foreign Body Stated complaint: rash to face Time Seen by Provider: 10/27/24 03:33 Source: patient Mode of arrival: ambulatory Limitations: no limitations History of Present Illness HPI narrative: Patient presents with acute on chronic rash on face, on and off since June; after she had covid. She was seen at an urgent care in July 2024 and diagnosed with dermatitis. Just prior to that she had seen her Defensive Line Coach who had prescribed Auaphor. She has a history of psoriatic arthritis for which she sees a environmental monitoring technician and gets monthly Remicade infusions (last one 10/14). She is also on a pill BID. She is due to see her PCP on Sunday ; thinks she is able to get in to see dermatology in December for this issue. After the visit, she took the triamcinolone and /or another topical steroid cream and got better. Never full resolution but it will become more faint and then flare again. When it started to flare again she started taking Benadryl and using leftover topical cream she had. Benadryl made her very tired yesterday and she slept a lot. She has been having a cough and wheeze as well as congestion. Notes that her whole body seems to flare and she was trying to be proactive. Feels indifferent about being tested with viral swab during this visit. She is on a low dose of steroids at baseline (5mg daily) for her issues and ran out but Rx is due to be filled today. She also receives an asthma/allergy shot every 2 weeks that starts with an X, prescribed by her continuous improvement coach. She has a history of asthma for which she uses treligy daily and a rescue inhaler. Not in need of refills. States rash limited to face at this time, possibly scalp. Denies it on torso, mucosa of mouth, genitalia, etc. Rash is itchy and red. Related Data Home Medications ?Medication ?Instructions ?Recorded ?Confirmed ?Last Taken ?Type apremilast 30 mg tablet (Otezla) mg PO 08/12/24 Unknown History trazodone 50 mg tablet mg 08/12/24 Unknown History Allergies Allergy/AdvReac Type Severity Reaction Status Date / Time cobalt Allergy Unknown Hives Verified 08/12/24 17:42 latex Allergy Unknown Hives Verified 08/12/24 17:42 [facility] Past Medical History Medical History Rheumatoid arthritis Psoriasis Asthma Surgical History Surgical History History of cholecystectomy History of hysterectomy Family History Family History Other Cerebrovascular accident Hypertension Social History Social History Smoking status: Former smoker Tobacco type: cigarettes Second hand tobacco smoke exposure: No Alcohol intake: current Substance use: never Living arrangements: with family Occupation/Education: occupation Gender identity (if verbalized by the patient): Female Sexual Orientation (if Verbalized by the Patient): Straight or Heterosexual Exam Narrative: GENERAL: well-nourished, and in no acute distress. HEAD: Normocephalic, atraumatic. EYES: Non injected, non icteric ENT: Nares clear, no rhinorrhea or epistaxis. NECK: Supple. CHEST: Speaking in full sentences. No respiratory distress. Lungs clear to auscultation bilaterally. No wheezes, crackles, areas of consolidation. HEART: Regular rate and rhythm. . ABDOMEN: Soft, nondistended. EXTREMITIES: Normal range of motion. No lower extremity edema. SKIN: Warm, dry. Rash above left eye, superior to left eyebrow. Also at the medial aspect of right eyebrow and overlying chin bilaterally and extending superiorly (left > right). Erythematous and thickened. NEURO: No focal deficits. Alert and oriented x3. PSYCH: Normal mood and affect. Course Vital Signs Vital signs: Vital Signs Temperature 98.7 F 10/27/24 02:59 Pulse Rate 100 10/27/24 02:59 Respiratory Rate 18 10/27/24 02:59 Blood Pressure 136/93 H 10/27/24 02:59 Pulse Oximetry 99 10/27/24 02:59 Oxygen Delivery Room Air 10/27/24 02:59 Temperature 98.7 F 10/27/24 02:59 Pulse Rate 68 10/27/24 04:24 Respiratory Rate 16 10/27/24 04:24 Blood Pressure 114/88 02/10/25 04:24 Pulse Oximetry 98 02/10/25 04:24 Oxygen Delivery Room Air 10/27/24 02:59 MDM - Skin/Abscess/Foreign Bdy MDM Narrative Medical decision making narrative: Patient presents with rash on her face. It has been present previously and she notes it has a degree of chronicity to it, occuring off and on since June. In the emergency department she is afebrile vital signs notable for elevated diastolic blood pressure. It does clearly look like a dermatitis. Medium potency steroid cream ordered. Patient also already on PO steroid. Also recommend vaseline/petroleum jelly and/or Aquaphor and these are prescribed as well. Advised she keep her upcoming appointment Sunday with her PCP as in the process of dermatology appointment/referral. Also has environmental monitoring technician and continuous improvement coach. Discharged in stable condition. Discharge Plan Discharge Clinical Impression: Dermatitis Patient Disposition: Home, Self-Care Condition: Stable Instructions: Antibiotic Form, Dermatitis (ED) Additional Instructions: Identify and eliminate triggers: Alcohol based products Fragrances and astringents Excessive bathing Reduce drying of skin Avoid lotions (high water and low oil content) [place] application of emollients (vaseline/petroleum jelly) immediately after bathing (<5 min, skin should be patted dry instead of rubbing). Alternatives include Aquaphor You are being prescribed a 7 days course of steroid ointment. Follow-up with your primary care physician at your upcoming appointment on Sunday to get your referral to see dermatology. Return to the emergency department with any new or worsening symptoms. Continue taking your other medications as prescribed. Patient Language: Serbian Prescriptions: New betamethasone valerate 0.1 % ointment 1 applic topical BID PRN (Reason: rash) Qty: 15 0RF white petrolatum [White Petroleum Jelly] Gel 1 applic topical 4-12XD PRN (Reason: dry skin) Qty: 113 0RF Aquaphor Original 41 % ointment 1 applic topical DAILY PRN (Reason: dry skin) Qty: 396 0RF No Action trazodone 50 mg tablet Otezla 30 mg tablet PO triamcinolone acetonide 0.1 % cream 1 applic topical BID 7 Days Qty: 30 0RF Follow-up/Referrals: Florence,ISMAEL Foster [Primary Care Provider] - Stand Alone Forms: Work/School Release IP Time of Disposition: 04:00
--- OUTSIDE RECORDS SUMMARY | 2024-10-27 03:45 | XMS_ITS | Referral Summary ---
Author Organization [facility] 2 Address [address] [place] [address] Care Team Providers Care Research Clerk Name Role Phone Kristin Henriquez Primary Care Provider + Encounters Date Type Department Care Team Description 10/10/2024 1:00 PM DIGITAL TECHNICIAN Infusion [facility] Outpatient Infusion Center [address] [place] [phone] Psoriatic arthritis (HCC) (Primary Dx) 09/12/2024 1:00 PM DIGITAL TECHNICIAN Infusion [facility] Outpatient [facility]fusion Center [address] [place] [phone] Psoriatic arthritis (HCC) (Primary Dx) 09/04/2024 Orders Only [facility] Outpatient [facility]fusion Center [address] [place] [phone] Valarie Miranda RN 08/27/2024 11:03 AM DIGITAL TECHNICIAN - 08/27/2024 11:59 PM DIGITAL TECHNICIAN Hospital Encounter [facility] of [address] [address] Psoriatic arthritis (HCC) Discharge Disposition: Discharge to home or self care 08/27/2024 9:00 AM DIGITAL TECHNICIAN Lab [facility] Endocrinology Metabolism and Lipid [facility] 5th [place] [phone] Psoriatic arthritis (HCC); High risk medication use 08/27/2024 8:30 AM DIGITAL TECHNICIAN Office Visit [facility] Rheumatology [facility] 5th [place] [address] [place] [phone] Tigist Bentley MD Psoriatic arthritis (HCC) (Primary Dx); High risk medication use 08/01/2024 1:00 PM DIGITAL TECHNICIAN Infusion [facility] Outpatient [facility]fusion Center [address] [place] [phone] Psoriatic arthritis (HCC) (Primary Dx) from Last 3 Months Allergies Active Allergy Reactions Criticality Noted Date Comments [place] Other (See comments) Low 03/04/2018 Worsening psoriasis [...] on file Legal Sex Female 9:19 AM DIGITAL TECHNICIAN Gender Identity Not on file Sexual Orientation Not on file Last Filed Vital Signs Vital Sign Reading Time Taken Comments Blood Pressure 156/70 10/10/2024 3:30 PM DIGITAL TECHNICIAN Pulse 94 10/10/2024 3:30 PM DIGITAL TECHNICIAN Temperature 36.4 C (97.5 F) 10/10/2024 12:50 PM DIGITAL TECHNICIAN Respiratory Rate 16 10/10/2024 12:50 PM DIGITAL TECHNICIAN Oxygen Saturation 100% 10/10/2024 3:30 PM DIGITAL TECHNICIAN Inhaled Oxygen Concentration - - Weight 82.1 kg (181 lb) 10/10/2024 12:50 PM DIGITAL TECHNICIAN Height 162.6 cm (5' 4 ) 10/10/2024 12:50 PM DIGITAL TECHNICIAN Body Mass Index 31.07 10/10/2024 12:50 PM DIGITAL TECHNICIAN Plan of Treatment Not on file Procedures Procedure Name Priority Date/Time Associated Diagnosis Comments ERYTHROCYTE SEDIMENTATION RATE Routine 08/27/2024 8:52 AM DIGITAL TECHNICIAN Psoriatic arthritis (HCC) CRP (ACUTE PHASE) Routine 08/27/2024 8:5 2 AM DIGITAL TECHNICIAN Psoriatic arthritis (HCC) COMPREHENSIVE METABOLIC PANEL Routine 08/27/2024 8:52 AM DIGITAL TECHNICIAN Psoriatic arthritis (HCC) High risk medication use CBC WITH AUTO DIFFERENTIAL Routine 08/27/2024 8:52 AM DIGITAL TECHNICIAN Psoriatic arthritis (HCC) High risk medication use HEPATITIS C ANTIBODY Routine 04/20/2021 7:23 PM CDT Pain in extremity, unspecified extremity Psoriatic arthritis (CMS/HCC) (HCC) High risk medication use from Last 3 Months or Most Recently Relevant to Health Maintenance Results * (ABNORMAL) CBC with auto differential (08/27/2024 8:52 AM DIGITAL TECHNICIAN) Pathologist [facility] White Blood Count 9.8 3.6 - 11.2 [...] [facility] Blood 08/27/2024 8:52 AM DIGITAL TECHNICIAN 08/27/2024 9:58 AM DIGITAL TECHNICIAN Tigist Escoto MD LAB BL OOD ORDERABLES Final Result [facility] CORE LAB [facility] * (ABNORMAL) Erythrocyte sedimentation rate (08/27/2024 8:52 AM DIGITAL TECHNICIAN) Erythrocyte sedimentation rate 41(H) 1 - 30 mm/hr Blood 08/27/2024 8:52 AM DIGITAL TECHNICIAN 08/27/2024 11:55 AM DIGITAL TECHNICIAN Tigist Escoto MD LAB BL OOD ORDERABLES Final Result Performing Organization Address City/[facility]/ZIP Co de Phone Number [facility] Department [place] [address] * (ABNORMAL) CRP (acute phase) (08/27/2024 8:52 AM DIGITAL TECHNICIAN) C-Reactive Protein, Acute 41.0(H) <5.0 mg/L [facility] Blood 08/27/2024 8:52 AM DIGITAL TECHNICIAN 08/27/2024 9:58 AM DIGITAL TECHNICIAN Tigist Escoto MD LAB BL OOD ORDERABLES Final Result [facility] CORE LAB [facility] * (ABNORMAL) Comprehensive metabolic panel (08/27/2024 8:52 AM DIGITAL TECHNICIAN) Total Protein 7.3 6.1 - 8.4 g/dL [...] [facility] Blood 08/27/2024 8:52 AM DIGITAL TECHNICIAN 08/27/2024 9:58 AM DIGITAL TECHNICIAN Tigist Escoto MD LAB BL OOD ORDERABLES [...] Edited Result - Final [facility] Department [place] [address] from Last 3 Months or Most Recently Relevant to Health Maintenance Insurance [place] [facility] Care Teams Research Clerk Relationship Specialty Start Date End Date Kristin Henriquez PA [address] [place] [phone] PCP - General Nurse Practitioner 11/18/19
--- OUTSIDE RECORDS SUMMARY | 2024-10-27 03:45 | XMS_ITS | Encounter Summary ---
Author Organization [facility] Address [address] [place] [address] Care Team Providers Care County Court Judge Name Role Phone Marilyn Simmons MD Unavailable [phone] Kristin Henriquez Primary Care Provider [phone] Encounter Details Date Type Department Care Team (Late Contact Info) Description 08/15/2024 Rutanet Message Enc [facility] Family & Internal Medicine [address] [phone] [facility] Provider Cologuard results Social History [...] (Late Contact Info) Description 10/29/2024 10:40 AM SURGICAL GARMENT ASSEMBLY SUPERVISOR Office Visit [facility] Family & Internal Medicine [address] [phone] Kristin Henriquez APNP [address] [place] [address] documented as of this encounter Visit Diagnoses Not on filedocumented in this encounter Additional Health Concerns Assessment Noted Time PHQ-9 Depression Total Score: 0 10/29/19 19 8:51 AM SURGICAL GARMENT ASSEMBLY SUPERVISOR documented as of this encounter Care Teams County Court Judge Relationship Specialty Start Date End Date Kristin Henriquez APNP Family & Internal Medicine [address] [address] PCP - General NURSE PRACTITIONER 05/18/18 Marilyn Simmons MD Ajith Psychologist INTERVENTIONAL CARDIOLOGY 05/09/18 documented as of this encounter
--- OUTSIDE RECORDS SUMMARY | 2024-10-27 03:45 | XMS_ITS | Clinical Summary ---
Author Organization [facility] Address [address] [place] [address] Care Team Providers Care Academic Affairs Coordinator Name Role Phone Marilyn Simmons MD Unavailable [phone] Kristin Henriquez Primary Care Provider [phone] Allergies Active Allergy Reactions Criticality Noted Date Comments [place] Hives Low 05/22/2018 Latex Hives Low 05/22/2018 [...] Problem Noted Date Diagnosed Date Psoriatic arthritis ([facility]) 07/17/2024 Asthma ([facility]) 04/14/2020 Paresthesia of [...] Care Team Description 08/15/2024 Leigh Message Enc [facility] Family & Internal Medicine [address] [phone] [facility] Provider Cologuard results 08/12/2024 Scan HEALTH INFO [...] st Contact Info) Description 10/29/2024 10:40 AM TOP LIFT CUTTER Office Visit [facility] Family & Internal Medicine - [place] [address] [place] [address] Kristin Henriquez APNP [address] [place] [address] Health Maintenance Due Date Last Done Comments [...] 06/12/2020, 06/12/2020, Additional history exists PHQ-2 (Physician [place]) 09/17/2024 Annual Physical 07/17/2025 07/17/2024 Colorectal Cancer [...] COLOGUARD (EXACT SCIENCE) Routine 08/06/2024 6:30 AM TOP LIFT CUTTER Colon cancer screening from Last 3 Months Results * COLOGUARD (EXACT SCIENCE) (08/06/2024 6:30 AM TOP LIFT CUTTER) COLOGUARD RESULT Negative Negative [employer] (CLIA #:[id number]) Comment: NEGATIVE TEST RESULT. A negative Cologuard [...] Shen. et al, N Engl J Med 2014;370(14):8367-9492) The normal value (reference range) for this assay is negative. COLOGUARD RE-SCREENING RECOMMENDATION: Periodic colorectal cancer screening is an important part of preventive healthcare for asymptomatic individuals at average risk for colorectal cancer. Following a negative Cologuard result, the [place] Cancer Society and U.S. Multi-Society Task Force screening guidelines recommend a Cologuard re-screening interval of 3 years. References: [place] [employer] Guideline for Colorectal Cancer Screening: https://www.cancer.org/cancer/oprmq-vjhoyb-xepznk/ziofawliq-hfloenknm-bcqkqor/ac s-rec ommendations.html.; Conor TOBIN, Juvencio MACHADO, Shorty JeronimoK, Colorectal Cancer Screening: Recommendations for Physicians and Patients from the U.S. Multi-Society Task Force on Colorectal Cancer Screening , Am J Gastroenterology 2017; 112:1368-7167. TEST DESCRIPTION: Composite algorithmic analysis of stool [...] (Jarad Thapa al, N Engl J Med 2014;370(14):1415-2073.) Cologuard may produce a false negative or false positive result (no colorectal cancer or precancerous polyp present at colonoscopy follow up). A negative Cologuard test result does not guarantee the absence of CRC or advanced adenoma (pre-cancer). The current Cologuard screening interval is every 3 years. ([place] Cancer Society and U.S. Multi-Society Task Force). Cologuard performance data in a 10,000 patient pivotal study using colonoscopy as the reference method can be accessed at the following location: www.[employer]/results. Additional description of the Cologuard test process, warnings and precautions can be found at www.[employer].com. STOOL STOOL SPECIMEN / Unknown 08/06/2024 6:30 AM TOP LIFT CUTTER 08/07/2024 10:07 AM TOP LIFT CUTTER Kristin ARROYO BODY FLUIDS AND STOOLS MATTHEW RICHARD Final Result [facility], [facility] [address] [place] [address], [employer] (CLIA #:[id number]) [address] [place] [address] from Last 3 Months Insurance [facility] Care Teams Academic Affairs Coordinator Relationship Specialty Start Date End Date Kristin Henriquez APNP Family & Internal Medicine [place] [address] [place] [address] PCP - General NURSE PRACTITIONER 05/18/18 Marilyn Simmons MD Ajith Guide Travel INTERVENTIONAL CARDIOLOGY 05/09/18
--- OUTSIDE RECORDS SUMMARY | 2024-10-27 03:45 | XMS_ITS | Encounter Summary ---
Author Organization [facility] Address [address] [place] [address] Phone Care Team Providers Care Scoreboard Operator Name Role Phone Kristin Henriquez Primary Care [...] on file Legal Sex Female 9:19 AM SCIENTOLOGIST Gender Identity Not on file Sexual Orientation [...] on filedocumented in this encounter Care Teams Scoreboard Operator Relationship Specialty Start Date End Date Kristin Henriquez PA [address] [place] [address] PCP - General Nurse Practitioner 11/18/19 documented as of this encounter
--- OUTSIDE RECORDS SUMMARY | 2024-10-27 03:45 | XMS_ITS | Clinical Summary ---
Author Organization [facility] 2 Address [address] [facility] [place] [address] Care Team Providers Care Hydraulic Lift Driver Name Role Phone Kristin Henriquez Primary Care Provider + Allergies Active Allergy Reactions Criticality Noted Date Comments [place] Other (See comments) Low 03/04/2018 Worsening psoriasis [...] Department Care Team Description 10/10/2024 1:00 PM LAMINATION INSPECTOR Infusion [facility] Outpatient Infusion Center [address] [place] [phone] Psoriatic arthritis (HCC) (Primary Dx) 09/12/2024 1:00 PM LAMINATION INSPECTOR Infusion [facility] Outpatient Infusion Center [address] [place] [phone] Psoriatic arthritis (HCC) (Primary Dx) 09/04/2024 Orders Only [facility] Outpatient Infusion Center [address] [place] [address] Ave [address] [place] [phone] Valarie Miranda RN 08/27/2024 11:03 AM LAMINATION INSPECTOR - 08/27/2024 11:59 PM LAMINATION INSPECTOR Hospital Encounter [address] [address] Psoriatic arthritis (HCC) Discharge Disposition: Discharge to home or self care 08/27/2024 9:00 AM LAMINATION INSPECTOR Lab [facility] Endocrinology Metabolism and Lipid [address] [facility] [address] [facility] [address] 5th [place] [phone] Psoriatic arthritis (HCC); High risk medication use 08/27/2024 8:30 AM LAMINATION INSPECTOR Office Visit [facility] Rheumatology [address] [facility] 5th [place] [phone] Tigist Bentley MD Psoriatic arthritis (HCC) (Primary Dx); High risk medication use 08/01/2024 1:00 PM LAMINATION INSPECTOR Infusion [facility] Outpatient Infusion Center [address] [place] [phone] Psoriatic arthritis (HCC) (Primary Dx) from Last 3 Months Immunizations Name Administration Dates Next Due Influenza, Quad, Adjuvantated, Intramuscular Influenza, Quadrivalent, Paula l Culture-based MDCK, Antibiotic Free, Intramuscular 07/11/2018 Influenza, Quadrivalent, Paula l Culture-based MDCK, Preservative Free, Antibiotic Free, Intramuscular 06/17/2019 Family History Medical History Relation Name Comments Arthritis Father Family history of arthritis - (Added by [employer]) Osteoarthritis Father Family histor y of osteoarthritis - (Added by [employer]) Osteoarthritis Mother Family histor y of osteoarthritis - (Added by [employer]) Rheum arthritis Mother Family histo ry of rheumatoid arthritis - (Added by [employer])/Family history of rheumatoid arthritis - (Added by [place]) Relation Name Status Comments Father Mother Social [...] on file Legal Sex Female 9:19 AM LAMINATION INSPECTOR Gender Identity Not on file Sexual Orientation Not on file Obstetrics History Last Filed Vital Signs Vital Sign Reading Time Taken Comments Blood Pressure 156/70 10/10/2024 3:30 PM LAMINATION INSPECTOR Pulse 94 10/10/2024 3:30 PM LAMINATION INSPECTOR Temperature 36.4 C (97.5 F) 10/10/2024 12:50 PM LAMINATION INSPECTOR Respiratory Rate 16 10/10/2024 12:50 PM LAMINATION INSPECTOR Oxygen Saturation 100% 10/10/2024 3:30 PM LAMINATION INSPECTOR Inhaled Oxygen Concentration - - Weight 82.1 kg (181 lb) 10/10/2024 12:50 PM LAMINATION INSPECTOR Height 162.6 cm (5' 4 ) 10/10/2024 12:50 PM LAMINATION INSPECTOR Body Mass Index 31.07 10/10/2024 12:50 PM LAMINATION INSPECTOR Plan of Treatment Health Maintenance Due Date [...] ERYTHROCYTE SEDIMENTATION RATE Routine 08/27/2024 8:52 AM LAMINATION INSPECTOR Psoriatic arthritis (HCC) CRP (ACUTE PHASE) Routine 08/27/2024 8:5 2 AM LAMINATION INSPECTOR Psoriatic arthritis (HCC) COMPREHENSIVE METABOLIC PANEL Routine 08/27/2024 8:52 AM LAMINATION INSPECTOR Psoriatic arthritis (HCC) High risk medication use CBC WITH AUTO DIFFERENTIAL Routine 08/27/2024 8:52 AM LAMINATION INSPECTOR Psoriatic arthritis (HCC) High risk medication use HEPATITIS C ANTIBODY Routine 04/20/2021 7:23 PM CDT Pain in extremity, unspecified extremity Psoriatic arthritis (CMS/HCC) (HCC) High risk medication use from Last 3 Months or Most Recently Relevant to Health Maintenance Results * (ABNORMAL) CBC with auto differential (08/27/2024 8:52 AM LAMINATION INSPECTOR) White Blood Count 9.8 3.6 - 11.2 [...] [facility] Blood 08/27/2024 8:52 AM LAMINATION INSPECTOR 08/27/2024 9:58 AM LAMINATION INSPECTOR Tigist Escoto MD LAB BL OOD ORDERABLES Final Result [facility] * (ABNORMAL) Erythrocyte sedimentation rate (08/27/2024 8:52 AM LAMINATION INSPECTOR) Erythrocyte sedimentation rate 41(H) 1 - 30 mm/hr Blood 08/27/2024 8:52 AM LAMINATION INSPECTOR 08/27/2024 11:55 AM LAMINATION INSPECTOR us Tigist Escoto MD LAB BL OOD ORDERABLES Final Result [facility] Department [place] [address] * (ABNORMAL) CRP (acute phase) (08/27/2024 8:52 AM LAMINATION INSPECTOR) C-Reactive Protein, Acute 41.0(H) <5.0 mg/L [facility] Blood 08/27/2024 8:52 AM LAMINATION INSPECTOR 08/27/2024 9:58 AM LAMINATION INSPECTOR Tigist Escoto MD LAB BL OOD ORDERABLES Final Result [facility] CORE LAB [facility] * (ABNORMAL) Comprehensive metabolic panel (08/27/2024 8:52 AM LAMINATION INSPECTOR) Total Protein 7.3 6.1 - 8.4 g/dL [...] [facility] Blood 08/27/2024 8:52 AM LAMINATION INSPECTOR 08/27/2024 9:58 AM LAMINATION INSPECTOR us Tigist Escoto MD LAB BL OOD ORDERABLES Final Result [facility] CORE LAB [facility] * Hepatitis C antibody (04/20/2021 7:23 PM CDT) Hep C Ab Nonreactive Nonreactive [facility] Comment:Antibodies to HCV no t detected. Does NOT exclude the possibility of recent exposure to HCV. Blood specimen (specimen) 04/20/2021 7:23 PM CDT 04/20/2021 8:13 PM CDT us Thania Zamarripa NP LAB MICROBIOLOGY - GENERA L ORDERABLES Edited Result - Final Performing Organization Address City/[facility] Co de Phone Number [facility] Department [place] [address] from Last 3 Months or Most Recently Relevant to Health Maintenance Insurance [facility] [employer] [place] [employer] [place] Care Teams Hydraulic Lift Driver Relationship Specialty Start Date End Date Kristin Henriquez PA [address] [place] [address] PCP - General Nurse Practitioner 11/18/19
--- OUTSIDE RECORDS SUMMARY | 2024-10-27 03:45 | XMS_ITS | Clinical Summary ---
Author Organization [facility] Address [address] [place] [address] Care Team Providers Care Pressing Machine Tender Name Role Phone Unavailable Primary Care Provider Unavailabl e Social History Tobacco Use Types Packs/Day Years Used Date Smoking Tobacco: Never Assessed Comments Unknown Sex and Gender Information Value Date Recorded Sex Assigned at Not on file Legal Sex Female 8:10 AM TELEPRINTER Gender Identity Not on file Sexual Orientation [...]
--- OUTSIDE RECORDS SUMMARY | 2024-10-27 03:45 | XMS_ITS | Encounter Summary ---
Author Organization [facility] Healthcare Address [address] [place] [address] Care Team Providers Care Paleology Professor Name Role Phone Kristin Henriquez Primary Care Provider + Encounter Details Date Type Department Care Team (Late st Contact Info) Description 01/01/2024 Telephone [facility] Outpatient Infusion Center [address] [facility] [address] [place] [address] CarrierVonnie RN Social History Tobacco [...] on file Legal Sex Female 9:19 AM ROPE CUTTER Gender Identity Not on file Sexual Orientation Not on file documented as of this encounter Plan of Treatment Not on file documented as of this encounter Visit Diagnoses Not on filedocumented in this encounter Care Teams Paleology Professor Relationship Specialty Start Date End Date Kristin Henriquez PA [address] [place] [address] PCP - General Nurse Practitioner 11/18/19 documented as of this encounter
--- OUTSIDE RECORDS SUMMARY | 2024-10-27 03:45 | XMS_ITS | Continuity of Care Document ---
Author Organization [facility] Address [address] [place] [address] Phone Care Team Providers Care Domestic Freight Forwarder Name Role Phone Saravanan GRAMAJO, Michael Unavailable Unavailable Procedures Procedure Date TB INTRADERMAL TEST IMMUNIZATION ADMIN Advance Directives Directive Yes / No Effective Date File Name No Information Encounters Encounter Description Practice Location Reason(s) For Visit Diagnoses Date Provider Providers Copied on Encounter [facility], [address] [place], [place] [address], [id number], [place] tel:[phone] [facility] TB skin test (chief complaint) Screening examination for pulmonary tuberculosis Saravanan Rodriguez. [address], [place], [id number] , [place]. tel:[phone] Referring Provider: Michael Coe, [address] [place], [place], [id number]. tel:[phone] Family History Family Member Type Diagnosis Age At Onset No Information Payers Payer name Insurance type Covered alliance party ID Authoriza tion(s) No Information Social [...]
--- OUTSIDE RECORDS SUMMARY | 2024-10-27 03:45 | XMS_ITS | Encounter Summary ---
Author Organization [facility] Address [address] [place] [address] Care Team Providers Care Bolt Machine Operator Name Role Phone Marilyn Simmons MD Unavailable [phone] Kristin Henriquez Primary Care Provider [phone] Encounter Details Date Type Department Care Team (Late st Contact Info) Description 05/29/2018 Abstract [facility] at [address] [address] Radha Simmons MA Social History Tobacco Use [...] st Contact Info) Description 10/29/2024 10:40 AM AUTOMATIC SPLICING MACHINE OPERATOR Office Visit [facility] Family & Internal Medicine [facility] [address] [place] [phone] Kristin Henriquez APNP [address] [place], [place] [phone] documented as of this encounter Procedures Procedure [...] documented as of this encounter Care Teams Bolt Machine Operator Relationship Specialty Start Date End Date Kristin Henriquez APNP Family & Internal Medicine [address] [address] PCP - General NURSE PRACTITIONER 05/18/18 Marilyn Simmons MD [place] Transit Mixer Driver INTERVENTIONAL CARDIOLOGY 05/09/18 documented as of this encounter
--- OUTSIDE RECORDS SUMMARY | 2024-10-27 03:45 | XMS_ITS | Encounter Summary ---
Author Organization [facility] Address [address] [place] [address] Care Team Providers Care Special Education Administrator Name Role Phone Marilyn Simmons MD Unavailable [phone] Kristin Henriquez Primary Care Provider [phone] Encounter Details Date Type Department Care Team (Latest Contact Info) Description 05/24/2018 Abstract [facility] , Jaime Zavala MD Social [...] st Contact Info) Description 10/29/2024 10:40 AM CARDIOVASCULAR SURGEON Office Visit [facility] Family & Internal Medicine - [place] [address] [place] [address] Kristin Henriquez APNP [facility] [place] [address] documented as of this encounter Visit Diagnoses Not on filedocumented in this encounter Additional Health Concerns Infection Onset Date Last Indicated Resolved Time COVID-19 Rule Out 04/28/2020 04/29/2020 05/14/2020 11:54 AM CDT COVID-19 Rule Out 03/07/2022 03/07/2022 03/09/2022 2:44 AM CDT documented as of this encounter Care Teams Special Education Administrator Relationship Specialty Start Date End Date Kristin Henriquez APNP Family & Internal Medicine [address] [address] PCP - General NURSE PRACTITIONER 05/18/18 Marilyn Simmons MD Ajith [employer] [place] INTERVENTIONAL CARDIOLOGY 05/09/18 documented as of this encounter
[2024-10-27] MEDS: BETAMETHASONE/CLOTRIMAZOLE CREAM 15 GM TUBE 1 APPLIC TOPICAL (04:19)
[2024-10-27 04:24] VITALS: BP 114/88; PULSE 68; RESP 16; O2SAT 98
== END 2024-10-27 04:25 | disposition home or self-care (01) ==
PROVIDERS: Emergency Provider Student in an Organized Health Care Education/Training Program; PCP Registered Nurse
DX: L30.9 Dermatitis, unspecified (principal); M06.9 Rheumatoid arthritis, unspecified; J45.909 Unspecified asthma, uncomplicated
CPT/HCPCS: 99283; A9270

== ENCOUNTER 2024-12-15 06:37 | Emergency (ER) | payer BC, SELFPAY ==
--- NOTE | ~2024-12-15 | XR_ITS ---
EXAMINATION: XR chest 1V portable DATE: 12/15/2024 08:40 INDICATION: Shortness of breath. Chest pain. TECHNIQUE: A single frontal view of the chest was obtained. COMPARISON: Chest 2 views 06/24/2024 FINDINGS: There is no pneumonia, pleural effusion, or pneumothorax. The heart size is normal. IMPRESSION: 1. No acute cardiopulmonary disease. Reviewed, dictated and finalized at location A.
--- NOTE | ~2024-12-15 | CT_ITS ---
Clinical Indication: Shortness of breath CT Scan of the Chest with Contrast: Technique: Contiguous sections were acquired throughout the chest after intravenous administration of 100 cc of Omnipaque 350. Dose reduction technique was used on this scan by utilizing automated expos ure control and iterative reconstruction technique. The dose-length product (DLP) was 356.97 mGy-cm. COMPARISON: 06/24/2024 Findings: There is no evidence of any significant mediastinal, hilar or axillary lymphadenopathy. There is no f illing defect in the pulmonary arterial tree to suggest pulmonary embolus. There is no evidence of ao rtic dissection or aneurysm. There is no evidence of pleural or pericardial effusion. Stable focal probable scarring in the right middle lobe. Images through the upper abdomen reveal no abnormalities. Impression: No evidence of pulmonary embolus, aortic dissection, or aortic aneurysm. No acute pulmonary abnormality. Stable focal scarring right middle lobe. Reviewed, dictated and finalized at [facility]. Impression: No evidence of pulmonary embolus, aortic dissection, or aortic aneurysm. No acute pulmonary abnormality. Stable focal scarring right middle lobe.
[2024-12-15 06:41] VITALS: BP 143/83; PULSE 88; RESP 17; TEMP 36.4; O2SAT 100
--- OUTSIDE RECORDS SUMMARY | 2024-12-15 06:41 | XMS_ITS | Clinical Summary ---
Author Organization [facility] Address [address] [place] [address] Care Team Providers Care Database Security Administrator Name Role Phone Marilyn Simmons MD Unavailable [phone] Kristin Henriquez Primary Care Provider [phone] Allergies Active Allergy Reactions Criticality Noted Date Comments [place] Hives Low 05/22/2018 Latex Hives Low 05/22/2018 Medications clobetasol 0.05 % ointment APPLY A THIN LAYER TO ITCHY RASH ON HANDS TWICE DAILY NEEDED 1 Active NEBULIZER/TUBING/ MOUTHPIECE KIT, DME,Indications:M oderate persistent asthma without complication ([facility]) 1 kit by Other route 2 (two) times daily. 1 kit 0 Active loratadine (CLARITIN) 10 MG tabletIndications :Seasonal allergies Take 1 tablet (10 mg total) by mouth daily. 90 tablet 3 0 Active FLUTICASONE PROPIONATE 50 MCG/ACT nasal sprayIndications: Seasonal allergies SPRAY 2 SPRAYS INTO EACH NOSTRIL EVERY DAY 48 mL 1 1 Active TRELEGY ELLIPTA 200-62.5-25 MCG/INH AEROSOL POWDER, BREATH ACTIVATED INHALE ONE PUFF EVERY DAY IN THE MORNING 2 Active albuterol sulfate HFA 108 (90 Base) MCG/ACT inhalerIndication s:Cough INHALE 2 PUFFS BY MOUTH EVERY 4 [...] (two) times daily. 30 tablet 4 Active HYDROcodone-aceta minophen (NORCO) 5-325 MG tabletIndications :Acute Pain < 7 Day Supply Take 1 tablet by mouth every 6 (six) hours as needed. Indications: Acute Pain < 7 Day Supply 10 tablet 4 Active inFLIXimab (REMICADE IV) Active traZODone (DESYREL) 50 MG tabletIndications :Primary insomnia Take one half tablet once daily 60 tablet 4 Active OTEZLA 30 MG Tab Take 30 mg by mouth 2 (two) times daily. 5 Active betamethasone valerate ointment (VALISONE) 0.1 % ointment 5 Active XOLAIR 150 MG/ML injection 5 Active Active Problems Problem Noted Date Diagnosed Date Psoriatic arthritis ([facility]) 07/17/2024 Asthma ([facility]) 04/14/2020 Paresthesia of left foot 11/18/2019 Fatigue [...] Encounters Date Type Department Care Team Description 10/29/2024 10:00 AM NOTE TELLER Office Visit [facility] Family & Internal Medicine [address] [phone] Kristin Henriquez, CRUZ Rash (Pt c/o intermittent burning rash on face since she had COVID in June 2024. Sunday/Saturday, it flared up again and pt went to ER as it was causing her left eye to swell.) 10/29/2024 Travel 10/27/2024 Scan [facility] Scanned, Doc Med Group [...] Sign Reading Time Taken Comments Blood Pressure 126/84 10/29/2024 10:27 AM NOTE TELLER Pulse 95 10/29/2024 10:27 AM NOTE TELLER Temperature 36.7 C (98 F) 10/29/2024 10:27 AM NOTE TELLER Respiratory Rate 16 10/29/2024 10:27 AM NOTE TELLER Oxygen Saturation 98% 10/29/2024 10:27 AM NOTE TELLER Inhaled Oxygen Concentration - - Weight 82.7 kg (182 lb 4.8 oz) 10/29/2024 10:27 AM NOTE TELLER Height 162.6 cm (5' 4 ) 10/29/2024 10:27 AM NOTE TELLER Body Mass Index 31.29 10/29/2024 10:27 AM NOTE TELLER Plan of Treatment Health Maintenance Due Date Last Done Comments Pneumococcal Vaccine: Pediatrics (0 to 5 Years) and At-Risk Patients (6 to 64 Years) (1 of 2 - PCV) 1978 Hepatitis B Vaccines (1 of 3 - 19+ 3-dose series) 12/21/1991 Mammogram Screening 2012 Lung Cancer Screening 2022 Zoster Vaccines (1 of 2) 2022 COVID-19 Vaccine (3 - 2023-2 5 season) 2024 07/29/2021, 11/19/2020 PHQ-2 (Physician [place]) 09/17/2024 Annual Physical 07/17/2025 07/17/2024 Colorectal Cancer Screening FIT-DNA (3 Years) 08/06/2027 08/06/2024, 08/06/2024 DTaP, Tdap and Td Vaccines ( 2 - Td or Tdap) 05/08/2031 05/08/2021 Hepatitis C 07/17/2054 Postponed from 1990 (Patient Refused) Meningococcal B Vaccine Aged Out No l onger eligible based on patient's age to complete this topic Meningococcal Vaccine Aged Out No falguni santiago eligible based on patient's age to complete this topic RSV Immunizations Under 20 Months Aged Out No longer eligible b ased on patient's age to complete this topic Procedures Procedure Name Priority Date/Time Associated Diagnosis Comments CORONAVIRUS (COVID-19) INFLUENZA A & B ANTIGEN IA PANEL Routine 10/29/2024 Rash COLOGUARD (EXACT SCIENCE) Routine 08/06/2024 6:30 AM NOTE TELLER Colon cancer screening from Last 3 Months or Most Recently Relevant to Health Maintenance Results * (ABNORMAL) CORONAVIRUS (COVID-19) INFLUENZA A & B ANTIGEN IA PANEL (10/29/2024) CORONAVIRUS ANTIGEN IA POSITIVE(A) NEGATIVE [facility] INFLUENZA A NEGATIVE NEGATIVE [facility] INFLUENZA B POSITIVE(A) NEGATIVE [facility] Internal Control: VALID VALID [facility] NASAL STRUCTURE / Unknown 10/29/2024 Kristin Henriquez CRUZ MICROBIOLOGY - GENERAL MATTHEW RICHARD Final Result -[id number] [place] [address], [place] * COLOGUARD (EXACT SCIENCE) (08/06/2024 6:30 AM NOTE TELLER) COLOGUARD RESULT Negative Negative [facility] [employer] (CLIA #:[id number]) Comment: NEGATIVE TEST RESULT. A negative Cologuard [...] (Jarad Thapa al, N Engl J Med 2014;370(14):0903-9772) The normal value (reference range) for this assay is negative. COLOGUARD RE-SCREENING RECOMMENDATION: Periodic colorectal cancer screening is an important part of preventive healthcare for asymptomatic individuals at average risk for colorectal cancer. Following a negative Cologuard result, the [place] Cancer Society and U.S. Multi-Society Task Force screening guidelines recommend a Cologuard re-screening interval of 3 years. References: [place] [employer] Guideline for Colorectal Cancer Screening: https://www.cancer.org/cancer/xsysn-kswftd-krjura/qgkgdmrxn-nsllsrdrf-bcejdbm/ac s-rec ommendations.html.; Conor DK, Juvencio CR, Shorty JeronimoK, Colorectal Cancer Screening: Recommendations for Physicians and Patients from the U.S. Multi-Society Task Force on Colorectal Cancer Screening , Am J Gastroenterology 2017; 112:3686-0854. TEST DESCRIPTION: Composite algorithmic analysis of stool [...] (Jarad Thapa al, N Engl J Med 2014;370(14):5233-3383.) Cologuard may produce a false negative or false positive result (no colorectal cancer or precancerous polyp present at colonoscopy follow up). A negative Cologuard test result does not guarantee the absence of CRC or advanced adenoma (pre-cancer). The current Cologuard screening interval is every 3 years. ([place] Cancer Society and U.S. Multi-Society Task Force). Cologuard performance data in a 10,000 patient pivotal study using colonoscopy as the reference method can be accessed at the following location: www.[employer]zzle[employer].Whisbi/results. Additional description of the Cologuard test process, warnings and precautions can be found at www.New KCBXogGMIrd.com. STOOL STOOL SPECIMEN / Unknown 08/06/2024 6:30 AM NOTE TELLER 08/07/2024 10:07 AM NOTE TELLER Kristin ARROYO BODY FLUIDS AND STOOLS MATTHEW RICHARD Final Result [employer] [employer] [address] [place] [address], [employer] (CLIA #:[id number]) [address] [address] from Last 3 Months or Most Recently Relevant to Health Maintenance Insurance Care Teams Database Security Administrator Relationship Specialty Start Date End Date Kristin Henriquez APNP Family & [place] [address] PCP - General NURSE PRACTITIONER 05/18/18 Marilyn Simmons MD [place] [employer] INTERVENTIONAL CARDIOLOGY 05/09/18
--- OUTSIDE RECORDS SUMMARY | 2024-12-15 06:41 | XMS_ITS | Clinical Summary ---
Author Organization [facility] Address [address] [place] [id number] Care Team Providers Care Vamp Maker Name Role Phone Unavailable Primary Care Provider Unavailabl e Social History Tobacco Use Types Packs/Day Years Used Date Smoking Tobacco: Never Assessed Comments Unknown Sex and Gender Information Value Date Recorded Sex Assigned at Not on file Legal Sex Female 8:10 AM [employer] Gender Identity Not on file Sexual Orientation [...]
--- OUTSIDE RECORDS SUMMARY | 2024-12-15 06:41 | XMS_ITS | Clinical Summary ---
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 Name Role Phone Kristin Henriquez Primary Care Provider + Allergies Active Allergy Reactions Criticality Noted Date Comments [place] Other (See comments) Low 03/04/2018 Worsening psoriasis Latex Rash Medium 01/02/2013 Rash Medications EAR DROPS, CARBAMIDE PEROXIDE, 6.5 % otic solutionIndicat ions:Impacted Cerumen 0 8 Active pimecrolimus (ELIDEL) 1 % cream 3 Active HYDROcodone-ibu profen (VICOPROFEN) 7.5-200 mg per tabletIndicatio ns:Pain as needed for pain 0 8 Active mupirocin (BACTROBAN) 2 % ointment 3 Active albuterol HFA (PROVENTIL HFA,VENTOLIN HFA,PROAIR HFA) 90 mcg/actuation inhaler 0 Active olopatadine (PATANOL) 0.1 % ophthalmic solution 0 Active azithromycin (ZITHROMAX) 250 mg tablet 0 Active budesonide-form oteroL (SYMBICORT) 80-4.5 mcg/actuation inhaler Inhale 2 puffs 2 (two) times a day 0 Active fluticasone propionate (FLONASE) 50 mcg/actuation nasal spray Administer 2 sprays into affected nostril(s) daily 0 Active loratadine (CLARITIN) 10 mg tablet Take 1 tablet (10 mg total) by mouth as needed 0 Active montelukast (SINGULAIR) 10 mg tablet Take 1 tablet (10 mg total) by mouth as needed 0 Active Trelegy Ellipta 200-62.5-25 mcg inhaler TAKE 1 PUFF EVERY DAY IN THE MORNING 1 Active leflunomide (ARAVA) 20 mg tabletIndicatio ns:Rheumatoid Arthritis Take 1 tablet (20 mg total) by mouth daily 90 tablet 3 3 Active Additional Information Patient not taking.Reported on 07/24/2024 potassium chloride ER 20 mEq CR tablet Take 1 tablet (20 mEq total) by mouth as needed 4 Active inFLIXimab (REMICADE) 100 mg injection Infuse into a venous catheter Active diclofenac DR (VOLTAREN) 50 mg EC tablet Take 1 tablet (50 mg total) by mouth 2 (two) times a day 4 Active HYDROcodone-jake taminophen (NORCO) 5-325 mg per tablet Take 1 tablet by mouth every 6 (six) hours as needed 4 Active traZODone (DESYREL) 50 mg tablet Take one half tablet once daily 4 Active triamcinolone (KENALOG) 0.1 % cream APPLY 1 APPLICATION TOPICALLY TWICE A DAY FOR 7 DAYS 4 Active Otezla 30 mg tabletIndicatio ns:Psoriatic arthritis (HCC) TAKE 1 TABLET BY MOUTH 2 TIMES A DAY 180 tablet 5 Active predniSONE (DELTASONE) 5 mg tablet Take 4 tablets (20 mg) by mouth daily for 4 days, THEN 3 tablets (15 mg) daily for 4 days, THEN 2 tablets (10 mg) daily for 4 days, THEN 1 tablet (5 mg) daily. 96 tablet 5 01/17/20 25 Active Additional Information Patient not taking.Reported on 12/11/2024 Xolair 150 mg/mL syringe 5 Active betamethasone valerate (VALISONE) 0.1 % ointment 5 Active ALPRAZolam (XANAX) 0.5 mg tablet Take 1 tablet (0.5 mg total) by mouth nightly as needed for anxiety for up to 7 days 7 tablet 5 12/19/19 25 Active doxycycline (VIBRAMYCIN) 100 mg capsule Take 1 tablet/capsule (100 mg total) by mouth 2 (two) times a day for 10 days 20 tablet/capsu le 5 12/15/19 25 Active Problems Problem Noted Date Diagnosed Date [...] Encounters Date Type Department Care Team Description 12/11/2024 8:00 PM CDT Lab [facility] [address] [place] [phone] Psoriatic arthritis (HCC) 12/11/2024 4:30 PM CDT Office Visit [facility] Rheumatology [address] [place] [address] Medicine 5th [place] [address] Tigist Bentley MD Psoriatic arthritis (HCC) (Primary Dx); Anxious mood; High risk medication use 12/05/2024 1:00 PM CDT Infusion [facility] [address] [place] [address] [address] [place] [phone] Psoriatic arthritis (HCC) (Primary Dx) 12/04/2024 Orders Only [facility] Rheumatology [address] [place] [address] Medicine 5th [place] [address] [place] [address] Tigist Bentely MD 11/10/2024 1:00 PM 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 Infusion [facility] Counts include 234 beds at the [facility] [address] [place] [phone] Psoriatic arthritis (HCC) (Primary Dx) 11/07/2024 Orders Only [facility] [address] [facility] [address] [place] [phone] Leticia Burnett, ELODIA 11/07/2024 Orders Only [facility] [address] [facility] [address] [place] [address] Lina Camarena, ELODIA 11/06/2024 Orders Only [facility] [address] [facility] 7th [place] [address] Leticia Burnett, ELODIA 11/06/2024 Telephone [facility] Rheumatology [address] [facility] 5th [place] [address] [place] [phone] Tigist Bentley MD Prior Auth (infliximab) 11/06/2024 Orders Only [facility] [address] [facility] [address] [place] [phone] Yue Morley RN 11/05/2024 Orders Only [facility] Rheumatology Counts include 234 beds at the [facility] 5th [place] [address] [place] [phone] Tigist Bentley MD Psoriatic arthritis (HCC) (Primary Dx); Rash 11/05/2024 Orders Only [facility] Rheumatology Counts include 234 beds at the [facility] 5th [place] [address] [place] [phone] Tigist Bentley MD 10/30/2024 Orders Only [facility] Rheumatology [address] [place] [address] for Advanced Medicine 5th [place] [address] [place] [phone] Tigist Bentley MD 10/30/2024 Orders Only [facility] Rheumatology [address] [place] [address] for Advanced Medicine 5th [place] [address] [place] [phone] Tigist Bentley MD 10/10/2024 1:00 PM 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 Infusion [facility] [address] [facility] [address] [place] [address] Psoriatic arthritis (HCC) (Primary Dx) from Last 3 Months Immunizations Immunization Administration Dates Next Due Influenza, Quad, Adjuvantated, Intramuscular Influenza, Quadrivalent, Paula l Culture-based MDCK, Antibiotic Free, Intramuscular 07/11/2018 Influenza, Quadrivalent, Paula l Culture-based MDCK, Preservative Free, Antibiotic Free, Intramuscular 06/17/2019 Family History Medical History Relation Name Comments Arthritis Father Family history of arthritis - (Added by TW Conv) Osteoarthritis Father Family histor y of osteoarthritis - (Added by TW Conv) Osteoarthritis Mother Family histor y of osteoarthritis - (Added by TW Conv) Rheum arthritis Mother Family histo ry of rheumatoid arthritis - (Added by TW Conv)/Family history of rheumatoid arthritis - (Added by TW Conv) Relation Name Status Comments Father Mother Social [...] the money to buy more. Never true 11/10/19 25 Within the past 12 months, t he food you bought just didn't last and you didn't have money to get more. Never true 11/10/2024 Personal Safety Answer Date Recorded Have you ever been in or are you currently in a harmful physical or emotional relationship or is someone making you feel afraid or unsafe? 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 Gender Identity Not on file Sexual Orientation Not on file Obstetrics History Last Filed Vital Signs Vital Sign Reading Time Taken Comments Blood Pressure 121/79 12/11/2024 4:08 PM CDT Pulse 88 12/11/2024 4:08 PM CDT Temperature 36.2 C (97.2 F) 12/11/2024 4:08 PM CDT Respiratory Rate 18 11/10/2024 12:4 9 PM 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 Oxygen Saturation 99% 12/05/2024 4:05 PM CDT Inhaled Oxygen Concentration - - Weight 84.8 kg (186 lb 14.4 oz) 12/11/2024 4:08 PM CDT Height 162.6 cm (5' 4 ) 12/11/2024 4:08 PM CDT Body Mass Index 32.08 12/11/2024 4:08 PM CDT Plan of Treatment Health Maintenance Due Date Last Done Comments Breast Cancer Screening-Mammogram 1972 Cervical Cancer Screening 1972 Colon Cancer Screening-Colonoscopy 1972 Depression Screening 1972 Regular Well Visit/Exam 18-64 1990 Pneumococcal vaccine <65 (1 of 2 - PCV) 12/21/1991 Zoster Vaccine (1 of 2) 12/21/1991 Influenza Vaccine (#1) 2024 , 06/12/2020, 06/17/2019, Additional history exists DTaP/Tdap/Td Vaccine (2 - Td or Tdap) 05/08/2031 05/08/2021 Hepatitis C Screening Completed 04/20/2021, 014 Hepatitis B Screening Completed 10/23/2023 Procedures Procedure Name Priority Date/Time Associated Diagnosis Comments EGFR Routine 12/11/2024 5:19 PM CDT Psoriatic arthritis (HCC) DIFFERENTIAL AUTO Routine 12/11/2024 5:1 9 PM CDT Psoriatic arthritis (HCC) CBC WITH AUTO DIFFERENTIAL Routine 12/11/2024 5:19 PM CDT Psoriatic arthritis (HCC) CYCLIC CITRUL PEPTIDE ANTIBODY, IGG Routine 12/11/2024 5:19 PM CDT Psoriatic arthritis (HCC) RHEUMATOID FACTOR Routine 12/11/2024 5:1 9 PM CDT Psoriatic arthritis (HCC) ERYTHROCYTE SEDIMENTATION RATE Routine 12/11/2024 5:19 PM CDT Psoriatic arthritis (HCC) CRP (ACUTE PHASE) Routine 12/11/2024 5:1 9 PM CDT Psoriatic arthritis (HCC) COMPREHENSIVE METABOLIC PANEL Routine 12/11/2024 5:19 PM CDT Psoriatic arthritis (HCC) HEPATITIS C ANTIBODY Routine 04/20/2021 7:23 PM CDT Pain in extremity, unspecified extremity Psoriatic arthritis (HCC) High risk medication use from Last 3 Months or Most Recently Relevant to Health Maintenance Results * eGFR (12/11/2024 5:19 PM CDT) eGFR 77 >=60 mL/min/1. 73 m2 Comment: Interpretive Data Reference Interval Normal >/= 90 mL/min/1.73m2 Mildly decreased* 60 - 89 mL/min/1.73m2 Mildly to moderately decreased 45 - 59 mL/min/1.73m2 Moderately to severely decreased 30 - 44 mL/min/1.73m2 Severely decreased 15 - 29 mL/min/1.73m2 Kidney Failure < 15 mL/min/1.73m2 *Relative to young adult level Estimated glomerular filtration rate is determined by the 2020 CKD-EPI equation recommended by the National Kidney Foundation (A Unifying Approach to GFR Estimation: Recommendations of the NKF-ASK Task Force on Reassessing the Inclusion of Race in Diagnosing Kidney Disease, JASN 2020). The CKD-EPI equation should not be used for patients with unstable renal function and has not been validated in children and those over 70. Current interpretive data was last reviewed 2021. Blood 12/11/2024 5:19 PM CDT 12/11/2024 5:46 PM CDT us Tigist Escoto MD LAB BL OOD ORDERABLES Final Result [facility] [place] [address] * Differential, auto (12/11/2024 5:19 PM CDT) Neutrophil abs 4.2 1.5 - 6.5 K/cumm Imm gran abs 0.0 0.0 - 0.1 K/cumm [facility] Lymphocyte abs 3.1 0.8 - 3.3 K/cumm [facility] Monocyte abs 0.6 0.2 - 0.8 K/cumm [facility] Eosinophil abs 0.2 0.0 - 0.5 K/cumm [facility] Basophil abs 0.1 0.0 - 0.1 K/cumm [facility] Neutrophil pct 51.3 % [facility] Comment: Interpretive Data Percent cell count reference ranges are not reported, since discordance with absolute values may lead to misinterpretation of CBC data. Current Interpretive Data was last revised on 2017. Imm gran pct 0.4 % [facility] Comment: Interpretive Data Percent cell count reference ranges are not reported, since discordance with absolute values may lead to misinterpretation of CBC data. Current Interpretive Data was last revised on 2017. Lymphocyte pct 37.7 % [facility] Comment: Interpretive Data Percent cell count reference ranges are not reported, since discordance with absolute values may lead to misinterpretation of CBC data. Current Interpretive Data was last revised on 2017. Monocyte pct 7.5 % [facility] Comment: Interpretive Data Percent cell count reference ranges are not reported, since discordance with absolute values may lead to misinterpretation of CBC data. Current Interpretive Data was last revised on 2017. Eosinophil pct 2.1 % [facility] Comment: Interpretive Data Percent cell count reference ranges are not reported, since discordance with absolute values may lead to misinterpretation of CBC data. Current Interpretive Data was last revised on 2017. Basophil pct 1.0 % [facility] Comment: Interpretive Data Percent cell count reference ranges are not reported, since discordance with absolute values may lead to misinterpretation of CBC data. Current Interpretive Data was last revised on 2017. Blood 12/11/2024 5:19 PM CDT 12/11/2024 5:33 PM CDT us Tigist Escoto MD LAB BL OOD ORDERABLES Final Result [facility] Department [place] [address] * CBC with auto differential (12/11/2024 5:19 PM CDT) [facility] WBC 8.2 3.8 - 9.9 K/cumm Hgb 15.0 11.9 - 15.5 g/dL [facility] Hct 45.1 35.6 - 45.5 % [facility] Plt 335 150 - 400 K/cumm [facility] MPV 9.5 9.1 - 12.3 fL [facility] RBC 5.20 3.90 - 5.20 M/cumm [facility] MCV 86.7 81.3 - 96.4 fL [facility] MCH 28.8 27.1 - 33.3 pg [facility] MCHC 33.3 32.3 - 35.7 g/dL [facility] RDW CV 13.6 11.1 - 14.9 % [facility] RDW SD 42.5 35.7 - 48.1 fL [facility] NRBC abs 0.00 0.00 - 0.01 K/cumm [facility] Blood 12/11/2024 5:19 PM CDT 12/11/2024 5:33 PM CDT Tigist Escoto MD LAB BL OOD ORDERABLES Final Result [facility] [place] [address] * (ABNORMAL) Cyclic citrul peptide antibody, IgG (12/11/2024 5:19 PM CDT) [facility] CCP Ab >300.0(H) <=2.9 units/mL Comment: Interpretive data Negative: <3 units/mL Positive: > or equal to 3 units/mL Current interpretive data was last revised on 2016. Blood 12/11/2024 5:19 PM CDT 12/11/2024 5:33 PM CDT Tigist Escoto MD LAB BL OOD ORDERABLES Final Result Performing Organization Address [facility] Co de Phone Number [facility] [place] [address] * Erythrocyte sedimentation rate (12/11/2024 5:19 PM CDT) Pathologist [facility] Erythrocyte sedimentation rate 10 1 - 30 mm/hr Blood 12/11/2024 5:19 PM CDT 12/11/2024 5:33 PM CDT Tigist Escoto MD LAB BL OOD ORDERABLES Final Result Performing Organization Address [facility] Co de Phone Number [facility] [place] [address] * (ABNORMAL) Rheumatoid factor (12/11/2024 5:19 PM CDT) Pathologist [facility] Rheumatoid factor, quant 630.0(H) 0.1 - 15.0 IUnits/mL Comment:Repeated on Dilution Blood 12/11/2024 5:19 PM CDT 12/11/2024 5:33 PM CDT Tigist Escoto MD LAB BL OOD ORDERABLES Final Result Performing Organization Address [facility] Co de Phone Number [facility] [place] [address] * CRP (acute phase) (12/11/2024 5:19 PM CDT) Pathologist [facility] CRP 1.2 <=10.0 mg/L Blood 12/11/2024 5:19 PM CDT 12/11/2024 5:33 PM CDT Tigist Escoto MD LAB BL OOD ORDERABLES Final Result [facility] [place] [address] * (ABNORMAL) Comprehensive metabolic panel (12/11/2024 5:19 PM CDT) Sodium 147(H) 135 - 145 mmol/L Potassium, pl 5.0(H) 3.3 - 4.9 mmol/L [facility] Comment:Hemolyzed; Potassium value may be falsely elevated by as much as 0.3-0.5 mmol/L. Suggest redraw and reanalysis. Chloride 106 97 - 110 mmol/L [facility] CO2 30 22 - 32 mmol/L [facility] Anion gap 11 2 - 15 mmol/L [facility] BUN 11 6 - 25 mg/dL [facility] Creatinine 0.90 0.60 - 1.10 mg/dL [facility] Glucose 113 70 - 199 mg/dL [facility] Comment: Interpretive Data Fasting glucose >/= 126 mg/dl is diagnostic for diabetes. Fasting is defined as no caloric intake for at least 8 hours. Fasting glucose between 100 mg/dl to 125 mg/dl is diagnostic of prediabetes. In a patient with classic symptoms of hyperglycemia or hyperglycemic crisis, a random glucose >/= 200 mg/dl is diagnostic for diabetes. In the absence of unequivocal hyperglycemia, results should be confirmed by repeat testing. The classification and Diagnosis of Diabetes Diabetes Care 202; 46: S19-S40. Current interpretive data was last revised 2022. Calcium 9.8 8.5 - 10.3 mg/dL [facility] Bilirubin, total 0.4 0.1 - 1.2 mg/dL [facility] Protein, pl 7.2 6.5 - 8.5 g/dL [facility] Albumin 4.1 3.5 - 5.0 g/dL [facility] Alk phos 99 40 - 130 Units/L [facility] ALT 22 7 - 45 Units/L [facility] AST 23 10 - 45 Units/L [facility] Comment:Hemolyzed; result ma y be falsely elevated Blood 12/11/2024 5:19 PM CDT 12/11/2024 5:33 PM CDT us Tigist Escoto MD LAB BL OOD ORDERABLES Final Result Performing Organization Address [facility] Co de Phone Number [facility] [place] [address] * Hepatitis C antibody (04/20/2021 7:23 PM CDT) Hep C Ab Nonreactive Nonreactive [facility] Comment:Antibodies to HCV no t detected. Does NOT exclude the possibility of recent exposure to HCV. Blood specimen (specimen) 04/20/2021 7:23 PM CDT 04/20/2021 8:13 PM CDT Thania Zamarripa NP LAB MICROBIOLOGY - GENERA L ORDERABLES Edited Result - Final Performing Organization Address [facility] Co de Phone Number [facility] Department [place] [address] from Last 3 Months or Most Recently Relevant to Health Maintenance Insurance [facility] [employer] Care Teams Oil Heater Operator Relationship Specialty Start Date End Date Kristin Henriquez PA [address] [place] [phone] PCP - General Nurse Practitioner 11/18/19
--- OUTSIDE RECORDS SUMMARY | 2024-12-15 06:41 | XMS_ITS | Encounter Summary ---
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
--- OUTSIDE RECORDS SUMMARY | 2024-12-15 06:41 | XMS_ITS | Referral Summary ---
Author Organization [facility] 2 Address [address] [place] [address] Care Team Providers Care Bottle House Quality Control Technician Name Role Phone Kristin Henriquez Primary Care Provider + Encounters Date Type Department Care Team Description 12/11/2024 8:00 PM CDT Lab [facility] [place] [address] Psoriatic arthritis (HCC) 12/11/2024 4:30 PM CDT Office Visit [facility] Rheumatology [facility] Advanced Medicine 5th [place] [address] Tigist Bentley MD Psoriatic arthritis (HCC) (Primary Dx); Anxious mood; High risk medication use 12/05/2024 1:00 PM CDT Infusion [facility] [address] [place] [phone] Psoriatic arthritis (HCC) (Primary Dx) 12/04/2024 Orders Only [facility] Rheumatology [facility] Advanced Medicine 5th [place] [address] Tigist Bentley MD 11/10/2024 1:00 PM DIET KITCHEN COOK Infusion [facility] [address] [place] [phone] Psoriatic arthritis (HCC) (Primary Dx) 11/07/2024 Orders Only [facility] [address] [place] [address] Leticia Burnett, RN 11/07/2024 Orders Only [facility] [address] [place] [phone] Lina Camarena, ELODIA 11/06/2024 Orders Only [facility] Special[facility] Infusion [facility] [address] [facility] 7th [place] [address] Leticia Burnett, RN 11/06/2024 Telephone [facility] Rheumatology [address] [facility] 5th [place] [address] [place] [phone] Tigist Bentley MD Prior Auth (infliximab) 11/06/2024 Orders Only [facility] [address] [place] [phone] Yue Morley RN 11/05/2024 Orders Only [facility] Rheumatology [address] [place] [address] for Advanced Medicine 5th [place] [address] [place] [phone] Tigist Bentley MD Psoriatic arthritis (HCC) (Primary Dx); Rash 11/05/2024 Orders Only [facility] Rheumatology [facility] 5th [place] [address] [place] [phone] Tigist Bentley MD 10/30/2024 Orders Only [facility] Rheumatology [address] [place] [address] for Advanced Medicine 5th [place] [address] [place] [address] Tigist Bentley MD 10/30/2024 Orders Only [facility] Rheumatology [address] [place] [address] for Advanced Medicine 5th [place] [address] [place] [phone] Tigist Bentley MD 10/10/2024 1:00 PM DIET KITCHEN COOK Infusion [facility] [address] [place] [address] Psoriatic arthritis (HCC) (Primary Dx) from Last 3 Months Allergies Active Allergy Reactions Criticality Noted Date Comments Garfield Other (See comments) Low 03/04/2018 Worsening psoriasis [...] Encounter for preventive health examination 03/2011 Immunizations Immunization Administration Dates Next Due Influenza, [...] on file Legal Sex Female 9:19 AM DIET KITCHEN COOK Gender Identity Not on file Sexual Orientation Not on file Last Filed Vital Signs Vital Sign Reading Time Taken Comments Blood Pressure 121/79 12/11/2024 4:08 PM CDT Pulse 88 12/11/2024 4:08 PM CDT Temperature 36.2 C (97.2 F) 12/11/2024 4:08 PM CDT Respiratory Rate 18 11/10/2024 12:4 9 PM DIET KITCHEN COOK Oxygen Saturation 99% 12/05/2024 4:05 PM CDT Inhaled Oxygen Concentration - - Weight 84.8 kg (186 lb 14.4 oz) 12/11/2024 4:08 PM CDT Height 162.6 cm (5' 4 ) 12/11/2024 4:08 PM CDT Body Mass Index 32.08 12/11/2024 4:08 PM CDT Plan of Treatment Not on file Procedures [...] of Race in Diagnosing Kidney Disease, JASN 202). The CKD-EPI equation should not be used for patients with unstable renal function and has not been validated in children and those over 70. Current interpretive data was last reviewed 2021. Blood 12/11/2024 5:19 PM CDT 12/11/2024 5:46 PM CDT Tigist Escoto MD LAB BL OOD ORDERABLES Final Result [facility] Department [place] [address] * Differential, auto (12/11/2024 5:19 PM CDT) Neutrophil abs 4.2 1.5 - 6.5 K/cumm Imm gran abs 0.0 0.0 - 0.1 K/cumm [facility] Lymphocyte abs 3.1 0.8 - 3.3 K/cumm [facility] Monocyte abs 0.6 0.2 - 0.8 K/cumm [facility] Eosinophil abs 0.2 0.0 - 0.5 K/cumm [facility] Basophil abs 0.1 0.0 - 0.1 K/cumm [facility] Neutrophil pct 51.3 % [facility] Comment: Interpretive Data Percent cell count reference ranges are not reported, since discordance with absolute values may lead to misinterpretation of CBC data. Current Interpretive Data was last revised on 2017. Imm gran pct 0.4 % [facility] Comment: Interpretive Data Percent cell count reference ranges are not reported, since discordance with absolute values may lead to misinterpretation of CBC data. Current Interpretive Data was last revised on 2017. Lymphocyte pct 37.7 % [facility] Comment: Interpretive Data Percent cell count reference ranges are not reported, since discordance with absolute values may lead to misinterpretation of CBC data. Current Interpretive Data was last revised on 2017. Monocyte pct 7.5 % [facility] Comment: Interpretive Data Percent cell count reference ranges are not reported, since discordance with absolute values may lead to misinterpretation of CBC data. Current Interpretive Data was last revised on 2017. Eosinophil pct 2.1 % [facility] Comment: Interpretive Data Percent cell count reference ranges are not reported, since discordance with absolute values may lead to misinterpretation of CBC data. Current Interpretive Data was last revised on 2017. Basophil pct 1.0 % [facility] Comment: Interpretive Data Percent cell count reference ranges are not reported, since discordance with absolute values may lead to misinterpretation of CBC data. Current Interpretive Data was last revised on 2017. Blood 12/11/2024 5:1 9 PM CDT 12/11/2024 5:33 PM CDT Tigist Escoto MD LAB BL OOD ORDERABLES Final Result [facility] Department [place] [address] * CBC with auto differential (12/11/2024 5:19 PM CDT) WBC 8.2 3.8 - 9.9 K/cumm Hgb 15.0 11.9 - 15.5 g/dL [facility] Hct 45.1 35.6 - 45.5 % [facility] Plt 335 150 - 400 K/cumm [facility] MPV 9.5 9.1 - 12.3 fL [facility] RBC 5.20 3.90 - 5.20 M/cumm [facility] MCV 86.7 81.3 - 96.4 fL [facility] MCH 28.8 27.1 - 33.3 pg [facility] MCHC 33.3 32.3 - 35.7 g/dL [facility] RDW CV 13.6 11.1 - 14.9 % [facility] RDW SD 42.5 35.7 - 48.1 fL [facility] NRBC abs 0.00 0.00 - 0.01 K/cumm [facility] Blood 12/11/2024 5:19 PM CDT 12/11/2024 5:33 PM CDT Tigist Escoto MD LAB BL OOD ORDERABLES Final Result Performing Organization Address City/[facility] Co de Phone Number [facility] Department [place] [address] * (ABNORMAL) Cyclic citrul peptide antibody, IgG (12/11/2024 5:19 PM CDT) Pathologist [facility] CCP Ab >300.0(H) <=2.9 units/mL Comment: Interpretive data Negative: <3 units/mL Positive: > or equal to 3 units/mL Current interpretive data was last revised on 2016. Blood 12/11/2024 5:19 PM CDT 12/11/2024 5:33 PM CDT Tigist Escoto MD LAB BL OOD ORDERABLES Final Result Performing Organization Address City/[facility]/ZIP Co de Phone Number [facility] Department [place] [address] * Erythrocyte sedimentation rate (12/11/2024 5:19 PM CDT) [facility] Erythrocyte sedimentation rate 10 1 - 30 mm/hr Blood 12/11/2024 5:19 PM CDT 12/11/2024 5:33 PM CDT Tigist Escoto MD LAB BL OOD ORDERABLES Final Result Performing Organization Address City/State/[facility] Co de Phone Number [facility] Department [place] [address] * (ABNORMAL) Rheumatoid factor (12/11/2024 5:19 PM CDT) [facility] Rheumatoid factor, quant 630.0(H) 0.1 - 15.0 IUnits/mL Comment:Repeated on Dilution Blood 12/11/2024 5:19 PM CDT 12/11/2024 5:33 PM CDT Tigist Escoto MD LAB BL OOD ORDERABLES Final Result Performing Organization Address City/[facility] Co de Phone Number [facility] Department [place] [address] * CRP (acute phase) (12/11/2024 5:19 PM CDT) [facility] CRP 1.2 <=10.0 mg/L Blood 12/11/2024 5:19 PM CDT 12/11/2024 5:33 PM CDT Tigist Escoto MD LAB BL OOD ORDERABLES Final Result Performing Organization Address City/[facility] de Phone Number [facility] [place] [address] * (ABNORMAL) Comprehensive metabolic panel (12/11/2024 5:19 PM CDT) [facility] Sodium 147(H) 135 - 145 mmol/L Potassium, pl 5.0(H) 3.3 - 4.9 mmol/L [facility] Comment:Hemolyzed; Potassium value may be falsely elevated by as much as 0.3-0.5 mmol/L. Suggest redraw and reanalysis. Chloride 106 97 - 110 mmol/L [facility] CO2 30 22 - 32 mmol/L [facility] Anion gap 11 2 - 15 mmol/L [facility] BUN 11 6 - 25 mg/dL [facility] Creatinine 0.90 0.60 - 1.10 mg/dL [facility] Glucose 113 70 - 199 mg/dL [facility] Comment: Interpretive Data Fasting glucose >/= [...] classification and Diagnosis of Diabetes Diabetes Care 2021; 46: S19-S40. Current interpretive data was last revised 2022. Calcium 9.8 8.5 - 10.3 mg/dL [facility] Bilirubin, total 0.4 0.1 - 1.2 mg/dL [facility] Protein, pl 7.2 6.5 - 8.5 g/dL [facility] Albumin 4.1 3.5 - 5.0 g/dL [facility] Alk phos 99 40 - 130 Units/L [facility] ALT 22 7 - 45 Units/L [facility] AST 23 10 - 45 Units/L [facility] Comment:Hemolyzed; result ma y be falsely elevated Blood 12/11/2024 5:19 PM CDT 12/11/2024 5:33 PM CDT us Tigist Escoto MD LAB BL OOD ORDERABLES Final Result [facility] Department [place] [address] * Hepatitis C antibody (04/20/2021 7:23 PM CDT) Hep C Ab Nonreactive Nonreactive [facility] Comment:Antibodies to HCV no t detected. Does NOT exclude the possibility of recent exposure to HCV. Blood specimen (specimen) 04/20/2021 7:23 PM CDT 04/20/2021 8:13 PM CDT us Thania Zamarripa NP LAB MICROBIOLOGY - GENERA L ORDERABLES Edited Result - Final [facility] [place] [address] from Last 3 Months or Most Recently Relevant to Health Maintenance Insurance [employer] Care Teams Bottle House Quality Control Technician Relationship Specialty Start Date End Date Kristin Henriquez PA [address] [place] [id number] PCP - General Nurse Practitioner 11/18/19
--- OUTSIDE RECORDS SUMMARY | 2024-12-15 06:41 | XMS_ITS | Encounter Summary ---
Author Organization [facility] Address [address] [place] [address] Care Team Providers Care Financial Coordinator Name Role Phone Marilyn Simmons MD Unavailable [phone] Kristin Henriquez Primary Care Provider [phone] Encounter Details Date Type Department Care Team (Late st Contact Info) Description 08/15/2024 Convertio Co Message Enc [facility] Medical Group Family & Internal Medicine [address] [phone] [employer], [facility] Provider Cologuard results Social History Tobacco Use [...] Last Indicated Resolved Time COVID-19 Rule Out 10/29/2024 10/29/2024 10/29/2024 11:33 AM CUSTOMER CARE ASSISTANT Influenza - Seasonal 10/29/2024 10/29/2024 025 12:32 AM CUSTOMER CARE ASSISTANT COVID-19 Confirmed 10/29/2024 10/29/2024 12:32 AM CUSTOMER CARE ASSISTANT Assessment Noted Time PHQ-9 Depression Total Score: 0 10/29/19 19 8:51 AM CUSTOMER CARE ASSISTANT documented as of this encounter Care Teams Financial Coordinator Relationship Specialty Start Date End Date Kristin Henriquez APNP Family & Internal Medicine [address] [address] PCP - General NURSE PRACTITIONER 05/18/18 Marilyn Simmons MD Ajith Veneer Drier Feeder INTERVENTIONAL CARDIOLOGY 05/09/18 documented as of this encounter
--- OUTSIDE RECORDS SUMMARY | 2024-12-15 06:41 | XMS_ITS | Encounter Summary ---
Author Organization [facility] Address [address] [place] [address] Care Team Providers Care Education Program Coordinator Name Role Phone Marilyn Simmons MD Unavailable [phone] Kristin Henriquez Primary Care Provider [phone] Encounter Details Date Type Department Care Team (Late st Contact Info) Description 05/29/2018 Abstract [facility] at [address] [address] Radha Simmons MA Social History Tobacco Use [...] Out 03/07/2022 03/07/2022 03/09/2022 2:44 AM CDT COVID-19 Rule Out 10/29/2024 10/29/2024 10/29/2024 11:33 AM INVESTMENT DIRECTOR Influenza - Seasonal 10/29/2024 10/29/2024 025 12:32 AM INVESTMENT DIRECTOR COVID-19 Confirmed 10/29/2024 10/29/2024 12:32 AM INVESTMENT DIRECTOR documented as of this encounter Care Teams Education Program Coordinator Relationship Specialty Start Date End Date Kristin Henriquez APNP Family & Internal Medicine [address] [address] PCP - General NURSE PRACTITIONER 05/18/18 Marilyn Simmons MD Ajith Sternman INTERVENTIONAL CARDIOLOGY 05/09/18 documented as of this encounter
--- OUTSIDE RECORDS SUMMARY | 2024-12-15 06:41 | XMS_ITS | Encounter Summary ---
Author Organization [facility] Address [address] [place] [address] Phone Care Team Providers Care Service Engine Repairer Name Role Phone Kristin Henriquez Primary Care [...] on file Legal Sex Female 9:19 AM AUDITOR IN CHARGE Gender Identity Not on file Sexual Orientation [...] on filedocumented in this encounter Care Teams Service Engine Repairer Relationship Specialty Start Date End Date Kristin Henriquez PA [address] [place] [address] PCP - General Nurse Practitioner 11/18/19 documented as of this encounter
--- OUTSIDE RECORDS SUMMARY | 2024-12-15 06:41 | XMS_ITS | Encounter Summary ---
Author Organization [facility] Address [address] [place] [address] Care Team Providers Care Coiler Name Role Phone Marilyn Simmons MD Unavailable [phone] Kristin Henriquez Primary Care Provider [phone] Encounter Details Date Type Department Care Team (Latest Contact Info) Description 05/24/2018 Abstract [facility] Medical Group , Generic Conversion, Social History Tobacco Use Types Packs/Day Years [...] Rule Out 10/29/2024 10/29/2024 10/29/2024 11:33 AM SILK SOAKER Influenza - Seasonal 10/29/2024 10/29/2024 025 12:32 AM SILK SOAKER COVID-19 Confirmed 10/29/2024 10/29/2024 12:32 AM SILK SOAKER documented as of this encounter Care Teams Coiler Relationship Specialty Start Date End Date Kristin Henriquez APNP Family & Internal Medicine [address] [address] PCP - General NURSE PRACTITIONER 05/18/18 Marilyn Simmons MD Ajith Director Of Casework Department INTERVENTIONAL CARDIOLOGY 05/09/18 documented as of this encounter
[2024-12-15 06:45] VITALS: BP 143/83; PULSE 97; RESP 18; TEMP 36.4; O2SAT 98
[2024-12-15 07:14] VITALS: BP 133/104; PULSE 91; RESP 16; O2SAT 96
--- OUTSIDE RECORDS SUMMARY | 2024-12-15 07:19 | XMS_ITS | Referral Summary ---
Author Organization [facility] 2 Address [address] [place] [address] Care Team Providers Care Labor Delivery Rn Name Role Phone Kristin Henriquez Primary Care Provider + Encounters Date Type Department Care Team Description 12/11/2024 8:00 PM CDT Lab [facility] [place] [address] Psoriatic arthritis (HCC) 12/11/2024 4:30 PM CDT Office Visit [facility] Rheumatology [facility] Advanced Medicine 5th [place] [address] Tigist Bentley MD Psoriatic arthritis (HCC) (Primary Dx); Anxious mood; High risk medication use 12/05/2024 1:00 PM CDT Infusion [facility] [address] [place] [phone] Psoriatic arthritis (HCC) (Primary Dx) 12/04/2024 Orders Only [facility] Rheumatology [facility] Advanced Medicine 5th [place] [address] [place] [address] Tigist Bentley MD 11/10/2024 1:00 PM ASSOCIATE STORE DIRECTOR Infusion [facility] [address] [place] [phone] Psoriatic arthritis (HCC) (Primary Dx) 11/07/2024 Orders Only [facility] [address] [place] [address] Leticia Burnett, RN 11/07/2024 Orders Only [facility] [address] [place] [phone] Lina Camarena, ELODIA 11/06/2024 Orders Only [facility] Specialty Infusion Center [address] [facility] 7th [place] [address] Leticia Burnett, RN 11/06/2024 Telephone [facility] Rheumatology [address] [facility] 5th [place] [address] [place] [phone] Tigist Bentley MD Prior Auth (infliximab) 11/06/2024 Orders Only [facility] [address] [place] [phone] Yue Morley RN 11/05/2024 Orders Only [facility] Rheumatology [address] [place] [address] for Advanced Medicine 5th [place] [address] [place] [phone] Tigist Bentley MD Psoriatic arthritis (HCC) (Primary Dx); Rash 11/05/2024 Orders Only [facility] Rheumatology [facility] 5th [place] [address] [place] [phone] Tigist Bentley MD 10/30/2024 Orders Only [facility] Rheumatology [address] [place] [address] for Advanced Medicine 5th [place] [address] [place] [address] Tigist Bentley MD 10/30/2024 Orders Only [facility] Rheumatology [address] [place] [address] for Advanced Medicine 5th [place] [address] [place] [phone] Tigist Bentley MD 10/10/2024 1:00 PM ASSOCIATE STORE DIRECTOR Infusion [facility] [address] [place] [phone] Psoriatic arthritis (HCC) (Primary Dx) from Last 3 Months Allergies Active Allergy Reactions Criticality Noted Date Comments [place] Other (See comments) Low 03/04/2018 Worsening psoriasis [...] on file Legal Sex Female 9:19 AM ASSOCIATE STORE DIRECTOR Gender Identity Not on file Sexual Orientation Not on file Last Filed Vital Signs Vital Sign Reading Time Taken Comments Blood Pressure 121/79 12/11/2024 4:08 PM CDT Pulse 88 12/11/2024 4:08 PM CDT Temperature 36.2 C (97.2 F) 12/11/2024 4:08 PM CDT Respiratory Rate 18 11/10/2024 12:4 9 PM ASSOCIATE STORE DIRECTOR Oxygen Saturation 99% 12/05/2024 4:05 PM CDT [...] MD LAB BL OOD ORDERABLES Final Result [facility] [address] [facility] Department [place] [address] * Differential, auto (12/11/2024 5:19 PM CDT) Neutrophil abs 4.2 1.5 - 6.5 K/cumm Imm gran abs 0.0 0.0 - 0.1 K/cumm [facility] Lymphocyte abs 3.1 0.8 - 3.3 K/cumm [facility] Monocyte abs 0.6 0.2 - 0.8 K/cumm [facility] Eosinophil abs 0.2 0.0 - 0.5 K/[facility]umm [facility] Basophil abs 0.1 0.0 - 0.1 K/cumm [facility] Neutrophil pct 51.3 % [facility] Comment: Interpretive Data Percent cell count reference ranges are not reported, since discordance with absolute values may lead to misinterpretation of CBC data. Current Interpretive Data was last revised on 2017. Imm gran pct 0.4 % [facility] Comment: Interpretive Data Percent cell count reference ranges are not reported, since discordance with absolute values may lead to misinterpretation of CBC data. Current Interpretive Data was last revised on 2017. Lymphocyte pct 37.7 % [facility] Comment: Interpretive Data Percent cell count reference ranges are not reported, since discordance with absolute values may lead to misinterpretation of CBC data. Current Interpretive Data was last revised on 2017. Monocyte pct 7.5 % [facility] Comment: Interpretive Data Percent cell count reference ranges are not reported, since discordance with absolute values may lead to misinterpretation of CBC data. Current Interpretive Data was last revised on 2017. Eosinophil pct 2.1 % [facility] Comment: Interpretive Data Percent cell count reference ranges are not reported, since discordance with absolute values may lead to misinterpretation of CBC data. Current Interpretive Data was last revised on 2017. Basophil pct 1.0 % [facility] Comment: Interpretive Data Percent cell count reference ranges are not reported, since discordance with absolute values may lead to misinterpretation of CBC data. Current Interpretive Data was last revised on 2017. Blood 12/11/2024 5:1 9 PM CDT 12/11/2024 5:33 PM CDT Tigist Escoto MD LAB BL OOD ORDERABLES Final Result [facility] [address] [facility] Department [place] [address] * CBC with auto differential (12/11/2024 5:19 PM CDT) WBC 8.2 3.8 - 9.9 K/cumm Hgb 15.0 11.9 - 15.5 g/dL [facility] Hct 45.1 35.6 - 45.5 % [facility] Plt 335 150 - 400 K/cumm [facility] MPV 9.5 9.1 - 12.3 fL [facility] RBC 5.20 3.90 - 5.20 M/cumm [facility] MCV 86.7 81.3 - 96.4 fL [facility] MCH 28.8 27.1 - 33.3 pg [facility] MCHC 33.3 32.3 - 35.7 g/dL [facility] RDW CV 13.6 11.1 - 14.9 % [facility] RDW SD 42.5 35.7 - 48.1 fL [facility] NRBC abs 0.00 0.00 - 0.01 K/cumm [facility] Blood 12/11/2024 5:19 PM CDT 12/11/2024 5:33 PM CDT Tigist Escoto MD LAB BL OOD ORDERABLES Final Result Performing Organization Address City/[facility] Co de Phone Number [facility] Department [place] [address] * (ABNORMAL) Cyclic citrul peptide antibody, IgG (12/11/2024 5:19 PM CDT) Pathologist [facility] CCP Ab >300.0(H) <=2.9 units/mL Comment: Interpretive data Negative: <3 units/mL Positive: > or equal to 3 units/mL Current interpretive data was last revised on 2016. Blood 12/11/2024 5:19 PM CDT 12/11/2024 5:33 PM CDT Tigist Escoto MD LAB BL OOD ORDERABLES Final Result Performing Organization Address City/[facility]/ZIP Co de Phone Number [facility] Department [place] [address] * Erythrocyte sedimentation rate (12/11/2024 5:19 PM CDT) [facility] Erythrocyte sedimentation rate 10 1 - 30 mm/hr Blood 12/11/2024 5:19 PM CDT 12/11/2024 5:33 PM CDT Tigist Escoto MD LAB BL OOD ORDERABLES Final Result Performing Organization Address City/State/[facility] Co de Phone Number [facility] Department [place] [address] * (ABNORMAL) Rheumatoid factor (12/11/2024 5:19 PM CDT) [facility] Rheumatoid factor, quant 630.0(H) 0.1 - 15.0 IUnits/mL Comment:Repeated on Dilution Blood 12/11/2024 5:19 PM CDT 12/11/2024 5:33 PM CDT Tigist Escoto MD LAB BL OOD ORDERABLES Final Result Performing Organization Address City/[facility] Co de Phone Number [facility] Department [place] [address] * CRP (acute phase) (12/11/2024 5:19 PM CDT) [facility] CRP 1.2 <=10.0 mg/L Blood 12/11/2024 5:19 PM CDT 12/11/2024 5:33 PM CDT Tigist Escoto MD LAB BL OOD ORDERABLES Final Result Performing Organization Address City/[facility] de Phone Number [facility] [place] [address] * (ABNORMAL) Comprehensive metabolic panel (12/11/2024 5:19 PM CDT) [facility] Sodium 147(H) 135 - 145 mmol/L Potassium, pl 5.0(H) 3.3 - 4.9 mmol/L [facility] Comment:Hemolyzed; Potassium value may be falsely elevated by as much as 0.3-0.5 mmol/L. Suggest redraw and reanalysis. Chloride 106 97 - 110 mmol/L [facility] CO2 30 22 - 32 mmol/L [facility] Anion gap 11 2 - 15 mmol/L [facility] BUN 11 6 - 25 mg/dL [facility] Creatinine 0.90 0.60 - 1.10 mg/dL [facility] Glucose 113 70 - 199 mg/dL [facility] Comment: Interpretive Data Fasting glucose >/= 126 [...] 2022. Calcium 9.8 8.5 - 10.3 mg/dL [facility] Bilirubin, total 0.4 0.1 - 1.2 mg/dL [facility] Protein, pl 7.2 6.5 - 8.5 g/dL [facility] Albumin 4.1 3.5 - 5.0 g/dL [facility] Alk phos 99 40 - 130 Units/L [facility] ALT 22 7 - 45 Units/L [facility] AST 23 10 - 45 Units/L [facility] Comment:Hemolyzed; result ma y be falsely elevated Blood 12/11/2024 5:19 PM CDT 12/11/2024 5:33 PM CDT us Tigist Escoto MD LAB BL OOD ORDERABLES Final Result [facility] Department [place] [address] * Hepatitis C antibody (04/20/2021 7:23 PM CDT) Hep C Ab Nonreactive Nonreactive [facility] Comment:Antibodies to HCV no t detected. Does NOT exclude the possibility of recent exposure to HCV. Blood specimen (specimen) 04/20/2021 7:23 PM CDT 04/20/2021 8:13 PM CDT us Thania Zamarripa NP LAB MICROBIOLOGY - GENERA L ORDERABLES Edited Result - Final [facility] Department [place] [address] from Last 3 Months or Most Recently Relevant to Health Maintenance Insurance [employer] [place] [employer] [place] [employer] [place] Care Teams Labor Delivery Rn Relationship Specialty Start Date End Date Kristin Henriquez PA [address] [place] [id number] PCP - General Nurse Practitioner 11/18/19
--- OUTSIDE RECORDS SUMMARY | 2024-12-15 07:19 | XMS_ITS | Encounter Summary ---
Author Organization [facility] Address [address] [place] [address] Care Team Providers Care Leather Cartridge Belt Maker Name Role Phone Marilyn Simmons MD Unavailable [phone] Kristin Henriquez Primary Care Provider [phone] Encounter Details Date Type Department Care Team (Latest Contact Info) Description 05/24/2018 Abstract [facility] , Generic Conversion, Social History [...] Rule Out 10/29/2024 10/29/2024 10/29/2024 11:33 AM ENGINE OILER Influenza - Seasonal 10/29/2024 10/29/2024 025 12:32 AM ENGINE OILER COVID-19 Confirmed 10/29/2024 10/29/2024 12:32 AM ENGINE OILER documented as of this encounter Care Teams Leather Cartridge Belt Maker Relationship Specialty Start Date End Date Kristin Henriquez APNP Family & Internal Medicine [address] [address] PCP - General NURSE PRACTITIONER 05/18/18 Marilyn Simmons MD [employer] INTERVENTIONAL CARDIOLOGY 05/09/18 documented as of this encounter
--- OUTSIDE RECORDS SUMMARY | 2024-12-15 07:19 | XMS_ITS | Clinical Summary ---
Author Organization [facility] 2 Address [address] [facility] [place] [address] Care Team Providers Care Corporate Bond Trader Name Role Phone Kristin Henriquez Primary Care Provider + Allergies Active Allergy Reactions Criticality Noted Date Comments [place] Other (See comments) Low 03/04/2018 Worsening psoriasis [...] Team Description 12/11/2024 8:00 PM CDT Lab [facility] [address] [place] [phone] Psoriatic arthritis (HCC) 12/11/2024 4:30 PM CDT Office Visit [facility] Rheumatology [address] [place] [address] Medicine 5th [place] [address] Tigist Bentley MD Psoriatic arthritis (HCC) (Primary Dx); Anxious mood; High risk medication use 12/05/2024 1:00 PM CDT Infusion [facility] [address] [place] [address] [address] [place] [phone] Psoriatic arthritis (HCC) (Primary Dx) 12/04/2024 Orders Only [facility] Rheumatology [address] [place] [address] Medicine 5th [place] [address] [place] [address] Tigist Bentley MD 11/10/2024 1:00 PM CODING SPECIALIST HOME HEALTH Infusion [facility] Out[facility]fusion [facility] [place] [phone] Psoriatic arthritis (HCC) (Primary Dx) 11/07/2024 Orders Only [facility] [address] [place] [phone] Leticia Burnett, ELODIA 11/07/2024 Orders Only [facility]fusion [facility] [address] [place] [address] Lina Camarena, ELODIA 11/06/2024 Orders Only [facility] Specialty Infusion Center [address] [facility] 7th [place] [address] Leticia Burnett, ELODIA 11/06/2024 Telephone [facility] [address] [facility] 5th [place] [address] [place] [phone] Tigist Bentley MD Prior Auth (infliximab) 11/06/2024 Orders Only [facility] [address] [place] [phone] Yue Morley RN 11/05/2024 Orders Only [facility] 5th [place] [address] [place] [phone] Tigist Bentley MD Psoriatic arthritis (HCC) (Primary Dx); Rash 11/05/2024 Orders Only [facility] 5th [place] [address] [place] [phone] Tigist Bentley MD 10/30/2024 Orders Only [facility]ology [address] [place] [address] for Advanced Medicine 5th [place] [address] [place] [phone] Tigist Bentley MD 10/30/2024 Orders Only [facility] [address] [place] [address] for Advanced Medicine 5th [place] [address] [place] [phone] Tigist Bentley MD 10/10/2024 1:00 PM CODING SPECIALIST HOME HEALTH Infusion [facility] [address] [facility] [address] [place] [address] Psoriatic arthritis (HCC) (Primary Dx) [...] on file Legal Sex Female 9:19 AM CODING SPECIALIST HOME HEALTH Gender Identity Not on file Sexual Orientation Not on file Obstetrics History Last Filed Vital Signs Vital Sign Reading Time Taken Comments Blood Pressure 121/79 12/11/2024 4:08 PM CDT Pulse 88 12/11/2024 4:08 PM CDT Temperature 36.2 C (97.2 F) 12/11/2024 4:08 PM CDT Respiratory Rate 18 11/10/2024 12:4 9 PM CODING SPECIALIST HOME HEALTH Oxygen Saturation 99% 12/05/2024 4:05 PM CDT [...] LAB BL OOD ORDERABLES Final Result [facility] Department [place] [address] * Differential, auto (12/11/2024 5:19 PM CDT) Neutrophil abs 4.2 1.5 - 6.5 K/cumm Imm gran abs 0.0 0.0 - 0.1 K/cumm [facility] Lymphocyte abs 3.1 0.8 - 3.3 K/cumm [facility] Monocyte abs 0.6 0.2 - 0.8 K/cumm [facility] Eosinophil abs 0.2 0.0 - 0.5 K/cumm [facility] Basophil abs 0.1 0.0 - 0.1 K/cumm [facility] Neutrophil pct 51.3 % [facility] Comment: Interpretive Data Percent cell count reference ranges are not reported, since discordance with absolute values may lead to misinterpretation of CBC data. Current Interpretive Data was last revised on 2017. Imm gran pct 0.4 % [facility] Comment: Interpretive Data Percent cell count reference ranges are not reported, since discordance with absolute values may lead to misinterpretation of CBC data. Current Interpretive Data was last revised on 2017. Lymphocyte pct 37.7 % [facility] Comment: Interpretive Data Percent cell count reference ranges are not reported, since discordance with absolute values may lead to misinterpretation of CBC data. Current Interpretive Data was last revised on 2017. Monocyte pct 7.5 % [facility] Comment: Interpretive Data Percent cell count reference ranges are not reported, since discordance with absolute values may lead to misinterpretation of CBC data. Current Interpretive Data was last revised on 2017. Eosinophil pct 2.1 % [facility] Comment: Interpretive Data Percent cell count reference ranges are not reported, since discordance with absolute values may lead to misinterpretation of CBC data. Current Interpretive Data was last revised on 2017. Basophil pct 1.0 % [facility] Comment: Interpretive Data Percent cell count reference ranges are not reported, since discordance with absolute values may lead to misinterpretation of CBC data. Current Interpretive Data was last revised on 2017. Blood 12/11/2024 5:19 PM CDT 12/11/2024 5:33 PM CDT us Tigist Escoto MD LAB BL OOD ORDERABLES Final Result [facility] One [facility] Department [place] [address] * CBC with auto differential (12/11/2024 5:19 PM CDT) [facility] WBC 8.2 3.8 - 9.9 K/cumm Hgb 15.0 11.9 - 15.5 g/dL [facility] Hct 45.1 35.6 - 45.5 % [facility] Plt 335 150 - 400 K/cumm [facility] MPV 9.5 9.1 - 12.3 fL [facility] RBC 5.20 3.90 - 5.20 M/cumm [facility] MCV 86.7 81.3 - 96.4 fL [facility] MCH 28.8 27.1 - 33.3 pg [facility] MCHC 33.3 32.3 - 35.7 g/dL [facility] RDW CV 13.6 11.1 - 14.9 % [facility] RDW SD 42.5 35.7 - 48.1 fL [facility] NRBC abs 0.00 0.00 - 0.01 K/cumm [facility] Blood 12/11/2024 5:19 PM CDT 12/11/2024 5:33 PM CDT Tigist Escoto MD LAB BL OOD ORDERABLES Final Result [facility] Department [place] [address] * (ABNORMAL) Cyclic citrul peptide antibody, IgG (12/11/2024 5:19 PM CDT) [facility] CCP Ab >300.0(H) <=2.9 units/mL Comment: Interpretive data Negative: <3 units/mL Positive: > or equal to 3 units/mL Current interpretive data was last revised on 2016. Blood 12/11/2024 5:19 PM CDT 12/11/2024 5:33 PM CDT Tigist Escoto MD LAB BL OOD ORDERABLES Final Result Performing Organization Address [facility] Co de Phone Number [facility] [place] [address] * Erythrocyte sedimentation rate (12/11/2024 5:19 PM CDT) Pathologist [facility] Erythrocyte sedimentation rate 10 1 - 30 mm/hr Blood 12/11/2024 5:19 PM CDT 12/11/2024 5:33 PM CDT Tigist Escoto MD LAB BL OOD ORDERABLES Final Result Performing Organization Address [facility] Co de Phone Number [facility] [place] [address] * (ABNORMAL) Rheumatoid factor (12/11/2024 5:19 PM CDT) Pathologist [facility] Rheumatoid factor, quant 630.0(H) 0.1 - 15.0 IUnits/mL Comment:Repeated on Dilution Blood 12/11/2024 5:19 PM CDT 12/11/2024 5:33 PM CDT Tigist Escoto MD LAB BL OOD ORDERABLES Final Result Performing Organization Address [facility] Co de Phone Number [facility] [place] [address] * CRP (acute phase) (12/11/2024 5:19 PM CDT) Pathologist [facility] CRP 1.2 <=10.0 mg/L Blood 12/11/2024 5:19 PM CDT 12/11/2024 5:33 PM CDT Tigist Escoto MD LAB BL OOD ORDERABLES Final Result [facility] One [facility] Department [place] [address] * (ABNORMAL) Comprehensive metabolic panel (12/11/2024 5:19 PM CDT) Sodium 147(H) 135 - 145 mmol/L Potassium, pl 5.0(H) 3.3 - 4.9 mmol/L [facility] Comment:Hemolyzed; Potassium value may be falsely elevated by as much as 0.3-0.5 mmol/L. Suggest redraw and reanalysis. Chloride 106 97 - 110 mmol/L [facility] CO2 30 22 - 32 mmol/L [facility] Anion gap 11 2 - 15 mmol/L [facility] BUN 11 6 - 25 mg/dL [facility] Creatinine 0.90 0.60 - 1.10 mg/dL [facility] Glucose 113 70 - 199 mg/dL [facility] Comment: Interpretive Data Fasting glucose >/= [...] Calcium 9.8 8.5 - 10.3 mg/dL [facility] Bilirubin, total 0.4 0.1 - 1.2 mg/dL [facility] Protein, pl 7.2 6.5 - 8.5 g/dL [facility] Albumin 4.1 3.5 - 5.0 g/dL [facility] Alk phos 99 40 - 130 Units/L [facility] ALT 22 7 - 45 Units/L [facility] AST 23 10 - 45 Units/L [facility] Comment:Hemolyzed; result ma y be falsely elevated Blood 12/11/2024 5:19 PM CDT 12/11/2024 5:33 PM CDT us Tigist Escoto MD LAB BL OOD ORDERABLES Final Result Performing Organization Address [facility] Co de Phone Number [facility] Department [place] [address] * Hepatitis C antibody (04/20/2021 7:23 PM CDT) Hep C Ab Nonreactive Nonreactive [facility] Comment:Antibodies to HCV no t detected. Does NOT exclude the possibility of recent exposure to HCV. Blood specimen (specimen) 04/20/2021 7:23 PM CDT 04/20/2021 8:13 PM CDT Thania Zamarripa NP LAB MICROBIOLOGY - GENERA L ORDERABLES Edited Result - Final Performing Organization Address [facility] Co de Phone Number [facility] Department [place] [address] from Last 3 Months or Most Recently Relevant to Health Maintenance Insurance [facility] [employer]! Mobile PA [employer] Mobile PA Care Teams Corporate Bond Trader Relationship Specialty Start Date End Date Kristin Henriquez PA [address] [place] [address] PCP - General Nurse Practitioner 11/18/19
--- OUTSIDE RECORDS SUMMARY | 2024-12-15 07:19 | XMS_ITS | Encounter Summary ---
Author Organization [facility] Address [address] [place] [address] Care Team Providers Care Chromosomal Disorders Counselor Name Role Phone Marilyn Simmons MD Unavailable [phone] Kristin Henriquez Primary Care Provider [phone] Encounter Details Date Type Department Care Team (Late st Contact Info) Description 05/29/2018 Abstract [facility] at [address] [address] Radha Simmons MA Social History Tobacco Use [...] Rule Out 10/29/2024 10/29/2024 10/29/2024 11:33 AM DIRECT CARE SUPERVISOR Influenza - Seasonal 10/29/2024 10/29/2024 025 12:32 AM DIRECT CARE SUPERVISOR COVID-19 Confirmed 10/29/2024 10/29/2024 12:32 AM DIRECT CARE SUPERVISOR documented as of this encounter Care Teams Chromosomal Disorders Counselor Relationship Specialty Start Date End Date Kristin Henriquez APNP Family & Internal Medicine [address] [address] PCP - General NURSE PRACTITIONER 05/18/18 Marilyn Simmons MD Ajith Direct Support Staff INTERVENTIONAL CARDIOLOGY 05/09/18 documented as of this encounter
--- OUTSIDE RECORDS SUMMARY | 2024-12-15 07:19 | XMS_ITS | Clinical Summary ---
Author Organization [facility] Address [address] [place] [address] Care Team Providers Care Electric Razor Mechanic Name Role Phone Marilyn Simmons MD Unavailable [phone] Kristin Henriquez Primary Care Provider [phone] Allergies Active Allergy Reactions Criticality Noted Date Comments [place] Hives Low 05/22/2018 Latex Hives Low 05/22/2018 Medications clobetasol 0.05 % ointment APPLY A THIN LAYER TO ITCHY RASH ON HANDS TWICE DAILY NEEDED 1 Active NEBULIZER/TUBING/ MOUTHPIECE KIT, DME,Indications:M oderate persistent asthma without complication ([facility]) 1 kit by Other route 2 (two) [...] Problem Noted Date Diagnosed Date Psoriatic arthritis ([facility]) 07/17/2024 Asthma ([facility]) 04/14/2020 Paresthesia of left foot 11/18/2019 Fatigue [...] Department Care Team Description 10/29/2024 10:00 AM MULE OPERATOR Office Visit [facility] Family & Internal Medicine [address] [phone] Kristin Henriquez, CRUZ Rash (Pt c/o intermittent [...] Comments Blood Pressure 126/84 10/29/2024 10:27 AM MULE OPERATOR Pulse 95 10/29/2024 10:27 AM MULE OPERATOR Temperature 36.7 C (98 F) 10/29/2024 10:27 AM MULE OPERATOR Respiratory Rate 16 10/29/2024 10:27 AM MULE OPERATOR Oxygen Saturation 98% 10/29/2024 10:27 AM MULE OPERATOR Inhaled Oxygen Concentration - - Weight 82.7 kg (182 lb 4.8 oz) 10/29/2024 10:27 AM MULE OPERATOR Height 162.6 cm (5' 4 ) 10/29/2024 10:27 AM MULE OPERATOR Body Mass Index 31.29 10/29/2024 10:27 AM MULE OPERATOR Plan of Treatment Health Maintenance Due Date [...] 5 season) 2024 07/29/2021, 11/19/2020 PHQ-2 (Physician [place]) 09/17/2024 Annual Physical 07/17/2025 07/17/2024 Colorectal Cancer [...] COLOGUARD (EXACT SCIENCE) Routine 08/06/2024 6:30 AM MULE OPERATOR Colon cancer screening from Last 3 Months or Most Recently Relevant to Health Maintenance Results * (ABNORMAL) CORONAVIRUS (COVID-19) INFLUENZA A & B ANTIGEN IA PANEL (10/29/2024) CORONAVIRUS ANTIGEN IA POSITIVE(A) NEGATIVE [facility] INFLUENZA A NEGATIVE NEGATIVE [facility] INFLUENZA B POSITIVE(A) NEGATIVE [facility] Internal Control: VALID VALID [facility] NASAL STRUCTURE / Unknown 10/29/2024 Kristin Henriquez CRUZ MICROBIOLOGY - GENERAL MATTHEW RICHARD Final Result -[place] [address] [place] [address], [place] * COLOGUARD (EXACT SCIENCE) (08/06/2024 6:30 AM MULE OPERATOR) COLOGUARD RESULT Negative Negative [facility] (CLIA #:[id number]) Comment: NEGATIVE TEST RESULT. A negative Cologuard [...] (Jarad Thapa al, N Engl J Med 2014;370(14):9653-7247) The normal value (reference range) for this [...] Cancer Society Guideline for Colorectal Cancer Screening: https://www.cancer.org/cancer/woxgt-ewyunq-pcmbmj/xevuucypc-xvvbbdykr-yezppiy/ac s-rec ommendations.html.; Conor DK, Juvencio CR, Shorty JeronimoK, Colorectal Cancer Screening: Recommendations for Physicians and Patients from the U.S. Multi-Society Task Force on Colorectal Cancer Screening , Am J Gastroenterology 2017; 112:7078-6126. TEST DESCRIPTION: Composite algorithmic analysis of stool [...] (Jarad Thapa al, N Engl J Med 2014;370(14):7225-1235.) Cologuard may produce a false negative or [...] can be accessed at the following location: www.Avantha.Sviral/results. Additional description of the Cologuard test process, warnings and precautions can be found at www.NephosityogPunchdrd.com. STOOL STOOL SPECIMEN / Unknown 08/06/2024 6:30 AM MULE OPERATOR 08/07/2024 10:07 AM MULE OPERATOR Kristin ARROYO BODY FLUIDS AND STOOLS MATTHEW RICHARD Final Result [employer] [address] [place] [address], [employer] (CLIA #:[id number]) [address] [place] [place] [address] from Last 3 Months or Most Recently Relevant to Health Maintenance Insurance Care Teams Electric Razor Mechanic Relationship Specialty Start Date End Date Kristin Henriquez APNP Family & [place] [address] PCP - General NURSE PRACTITIONER 05/18/18 Marilyn Simmons MD Monona Feeder Driver INTERVENTIONAL CARDIOLOGY 05/09/18
--- OUTSIDE RECORDS SUMMARY | 2024-12-15 07:19 | XMS_ITS | Encounter Summary ---
Author Organization [facility] Address [address] [place] [address] Care Team Providers Care Bag End Sewer Name Role Phone Marilyn Simmons MD Unavailable [phone] Kristin Henriquez Primary Care Provider [phone] Encounter Details Date Type Department Care Team (Late st Contact Info) Description 08/15/2024 [employer] Message Enc [facility] Family & Internal Medicine [address] [phone] [employer], [facility] Provider Cologuard results Social History Tobacco Use [...] Rule Out 10/29/2024 10/29/2024 10/29/2024 11:33 AM CANDLE POURER Influenza - Seasonal 10/29/2024 10/29/2024 025 12:32 AM CANDLE POURER COVID-19 Confirmed 10/29/2024 10/29/2024 12:32 AM CANDLE POURER Assessment Noted Time PHQ-9 Depression Total Score: 0 10/29/19 19 8:51 AM CANDLE POURER documented as of this encounter Care Teams Bag End Sewer Relationship Specialty Start Date End Date Kristin Henriquez APNP Family & Internal Medicine [address] [address] PCP - General NURSE PRACTITIONER 05/18/18 Marilyn Simmons MD Ajith Manager Statistics INTERVENTIONAL CARDIOLOGY 05/09/18 documented as of this encounter
--- OUTSIDE RECORDS SUMMARY | 2024-12-15 07:19 | XMS_ITS | Encounter Summary ---
Author Organization [facility] Address [address] [place] [address] Care Team Providers Care Multiple Resaw Operator Name Role Phone Kristin Henriquez Primary Care Provider + Encounter Details Date Type Department Care Team (Late st Contact Info) Description 01/01/2024 Telephone [facility]fusion [facility] [address] [facility] [address] [place] [address] CarrierVonnie RN Social History Tobacco [...] on file Legal Sex Female 9:19 AM OPERATOR [employer] Gender Identity Not on file Sexual Orientation Not on file documented as of this encounter Plan of Treatment Not on file documented as of this encounter Visit Diagnoses Not on filedocumented in this encounter Care Teams Multiple Resaw Operator Relationship Specialty Start Date End Date Kristin Henriquez PA [address] [place] [address] PCP - General Nurse Practitioner 11/18/19 documented as of this encounter
--- OUTSIDE RECORDS SUMMARY | 2024-12-15 07:19 | XMS_ITS | Encounter Summary ---
Author Organization [facility] Address [address] [place] [address] Phone Care Team Providers Care Manager Of Broadcast Content Name Role Phone Kristin Henriquez Primary Care [...] on file Legal Sex Female 9:19 AM CORROSION CONTROL ENGINEER Gender Identity Not on file Sexual Orientation [...] on filedocumented in this encounter Care Teams Manager Of Broadcast Content Relationship Specialty Start Date End Date Kristin Henriquez PA [address] [place] [address] PCP - General Nurse Practitioner 11/18/19 documented as of this encounter
--- OUTSIDE RECORDS SUMMARY | 2024-12-15 07:19 | XMS_ITS | Clinical Summary ---
Author Organization [facility] Address [address] [place] [phone] Care Team Providers Care Cement Tester Assistant Name Role Phone Unavailable Primary Care Provider Unavailabl e Social History Tobacco Use Types Packs/Day Years Used Date Smoking Tobacco: Never Assessed Comments Unknown Sex and Gender Information Value Date Recorded Sex Assigned at Not on file Legal Sex Female 8:10 AM DIRECTOR PATIENT FINANCIAL SERVICES Gender Identity Not on file Sexual Orientation [...]
--- NOTE | 2024-12-15 07:34 | ED.SKABFB ---
HPI - Skin/Abscess/Foreign Bdy General Chief complaint: Skin/Abscess/Foreign Body Stated complaint: Rash on face, PABON, unable to catch my breath. Time Seen by Provider: 12/15/24 07:03 Source: patient Mode of arrival: ambulatory Limitations: no limitations History of Present Illness HPI narrative: Patient presents with concern for a rash on her face which has been chronic. She states another breakout start last week. Has an appointment to see a infant room teacher in January. Receives Remicade infusions, last one the previous Sunday. Also having a headache and feels unable to catch her breath, dyspenic with exertion. No cough/fevers/chills. Had a DVT in her leg when whe was 22 years old, no longer on anticoagulation. Sees her PCP and flight technician. Recently put back on doxycycline but denies significant sun exposure. She had chronically been on steroids (5mg) but this was recently discontinued. Has chronic joint pains but feels these are flaring recently in her wrist, hands, knee. Experiencing what she describes as chest pain but states in her left and right shoulder. Feels like she gets winded, for example walking from car into ED. History of asthma and uses albuterol inhaler PRN and Treligy daily. Saw her flight technician in October who diagnosed her with both COvid (again) and Flu B although she states she was relatively asymptomatic at that time, not like previously which is believed to have possibly precipitated her dermatologic issues a few years ago. Is on a cream. Feels exhausted. Headache is frontal across forehead, described as booming. Feels similar to previous but comes and goes. No sick contacts. No nausea/vomiting. Mild photophobia w/o phonophobia. No trauma or anticoagulation. No neck pain. Tried ibuprofen and then switched to Aleve. Also using Benadryl, last dose 4:30 or 5. Had blood work done recently through [facility] and [facility]. No edema. Related Data Home Medications ?Medication ?Instructions ?Recorded ?Confirmed ?Last Taken ?Type apremilast 30 mg tablet (Otezla) mg PO 08/12/24 Unknown History trazodone 50 mg tablet mg 08/12/24 Unknown History Allergies Allergy/AdvReac Type Severity Reaction Status Date / Time cobalt Allergy Unknown Hives Verified 12/15/24 07:13 latex Allergy Unknown Hives Verified 12/15/24 07:13 FOR[facility]LY [facility], [facility] Past Medical History Medical History DVT (deep venous thrombosis) Leg, when ~22 yo; not on anticoagulation Rheumatoid arthritis Psoriasis Asthma Surgical History Surgical History History of cholecystectomy History of hysterectomy Family History Family History Other Cerebrovascular accident Hypertension Social History Social History Smoking status: Former smoker Tobacco type: cigarettes Second hand tobacco smoke exposure: No Alcohol intake: current Substance use: never Living arrangements: with family Occupation/Education: occupation Gender identity (if verbalized by the patient): Female Sexual Orientation (if Verbalized by the Patient): Straight or Heterosexual Exam Narrative: GENERAL: Well-appearing, well-nourished, and in no acute distress. HEAD: Normocephalic, atraumatic. EYES: Non injected, non icteric. Mild photophobia by report but room not dark. ENT: Nares clear, no rhinorrhea or epistaxis. NECK: Supple. No meningismus. CHEST: Speaking in full sentences. No respiratory distress. Lungs clear to auscultation bilaterally w/o wheezes. HEART: Regular rate and rhythm. . ABDOMEN: Soft, nondistended. EXTREMITIES: Normal range of motion. No bilateral lower extremity edema. SKIN: Warm, dry. Rash over bilateral face and chin, erythematous and slightly thickened though appears improved from when previously seen by myself. NEURO: No focal deficits. Alert and oriented x3. Speaks clearly w/o aphasia or dysarthria. PSYCH: Normal mood and affect. Course Vital Signs Vital signs: Vital Signs Temperature 97.5 F L 12/15/24 06:41 Pulse Rate 88 12/15/24 06:41 Respiratory Rate 17 12/15/24 06:41 Blood Pressure 143/83 H 12/15/24 06:41 Pulse Oximetry 100 12/15/24 06:41 Oxygen Delivery Room Air 12/15/24 06:41 Temperature 97.5 F L 12/15/24 06:45 Pulse Rate 80 12/15/24 11:29 Respiratory Rate 16 12/15/24 11:29 Blood Pressure 138/83 12/15/24 11:29 Pulse Oximetry 100 12/15/24 11:29 Oxygen Delivery Room Air 12/15/24 06:41 MDM - Skin/Abscess/Foreign Bdy MDM Narrative Medical decision making narrative: Patient presents with an acute on chronic rash and report of shortness of breath and a headache. Has an appointment to see dermatology in January. Also has regular follow up with PCP and flight technician. Recently placed back on a cream and doxycycline and steroid (had been chronic) discontinued. History asthma on medications but without wheezes or cough on exam or HPI. In the emergency department she is afebrile with vital signs notable hypertension. After obtaining the patient's history and performing a physical exam, the headache is most likely due to benign etiology. The neurological examination is non-focal, there are no high-risk features on history, vital signs are stable, and the patient is non-toxic appearing. The Ddx for the patient's headache is tension headache, migraine, or other headache of non-emergent etiology. Unlikely SAH: headache is non-thunderclap. Headache is gradual, similar to headaches in the past. Unlikely subdural/epidural hematoma: no history of trauma, no anticoagulation Unlikely meningitis: afebrile, no meningismus, mild photophobia Unlikely temporal arteritis: pt <60 years old. Unlikely acute angle glaucoma: Does not report eye pain, grossly equal on exam, no N/V Unlikely carbon monoxide poisoning: no other house members with similar symptoms Her headache may be a side effect of the doxycycline she is on. Her other symptoms may be due to steroid withdrawal (lethargy, malaise, arthralgias, etc). The patient's headache was treated symptomatically with ketorolac, benadryl, compazine and IV fluids. She has a slightly elevated hemoglobin, possibly a degree of hemoconcentration. Hematocrit within normal limits. CMP chest x-ray normal. Her dimer is elevated greater than [address] PE imaging. Troponin and BNP within normal limits. Upon reassessment she states her headache is improving, nearly but not quite gone. Will administer magnesium followed by 1 time dose of a steroid to reduce the bounce-back/rebound headache. She states she has upcoming appointment with her flight technician in February and she has the dermatology appointment in January. She is going to call to schedule a follow-up appointment with her primary care physician who can normally get her in within the week. Patient will be prescribed a short course of low-dose steroid as she had previously been on that chronically. Differential Diagnosis Differential diagnosis: Likely allergic reaction to drug (Versus side effect) Lab Data Attestation: I reviewed the patient's lab results. 12/15/24 08:12 12/15/24 08:12 Labs: Lab Results 12/15/24 Range/Units 08:12 WBC 7.3 (4.5-10.0) K/mm3 RBC 5.31 (4.2-5.4) M/mm3 Hgb 15.5 H (12.0-15.0) g/dL Hct 46.4 (37.0-47.0) % MCV 87.4 (80-100) fl MCH 29.2 (26-34) pg MCHC 33.4 (32-36) g/dl RDW 13.3 (11.5-14.5) % Plt Count 284 (150-375) k/mm3 MPV 9.5 (7.4-10.4) fl Immature Gran % (Auto) 0.4 (0-0.5) % Neut % (Auto) 63.8 (45.5-73.1) % Lymph % (Auto) 25.4 (18.3-44.2) % [place] % (Auto) 7.8 (2.6-8.5) % Eos % (Auto) 1.6 (0-4.4) % Baso % (Auto) 1.0 (0.2-1.2) % Lymph # (Auto) 1.86 (0.9-3.2) K/mm3 [place] # (Auto) 0.6 (0.1-0.6) K/mm3 Eos # (Auto) 0.1 (0-0.3) K/mm3 Baso # (Auto) 0.1 (0.0-0.1) K/mm3 Abs Immat Gran (auto) 0.03 (0.00-0.031) K/mm3 Absolute Neuts (auto) 4.7 (1.3-6.7) K/mm3 Absolute Nucleated RBC 0.000 (0.0-0.012) K/mm3 Nucleated RBC % 0.0 (0.0-0.2) % ESR 11 (0-20) mm/hr D-Dimer 1.52 H (<0.48) ug/mL Sodium 141 (137-145) mmol/L Potassium 4.6 (3.4-5.0) mmol/L Chloride 104 (98-107) mmol/L Carbon Dioxide 29 (22-30) mmol/L Anion Gap 8 (4-12) mmol/L BUN 13 (7-17) mg/dL Creatinine 0.78 (0.7-1.0) mg/dL Estim Creat Clear Calc Not Reportable Estimated GFR > 60 (59 - ) Glucose 103 (65-110) mg/dL Calcium 9.4 (8.4-10.2) mg/dL Magnesium 2.0 (1.6-2.3) mg/dL Total Bilirubin 0.7 (0.2-1.3) mg/dL AST 20 (14-36) U/L ALT 24 (6-35) U/L Alkaline Phosphatase 94 (38-126) U/L Troponin I < 0.012 (0.000-0.034) ng/mL C-Reactive Protein < 0.5 (<1.0) mg/dL NT-Pro-B Natriuret Pep 65 (19.9-100) pg/mL Total Protein 7.0 (6.3-8.2) g/dL Albumin 4.2 (3.5-5.1) g/dL Imaging Data Radiologist's impression: Impressions Chest X-Ray 12/15/24 08:41 IMPRESSION: 1. No acute cardiopulmonary disease. Chest CTA 12/15/24 10:09 Impression: No evidence of pulmonary embolus, aortic dissection, or aortic aneurysm. No acute pulmonary abnormality. Stable focal scarring right middle lobe. ECG Data EKG #1: Attestation: I personally reviewed and interpreted this ECG as follows: ECG completion date: 12/15/24 ECG completion time: 07:57 Interpretation: Normal sinus rhythm at a rate of 75 beats per minute. NV interval 150. QRS 92. QT/QTC 399/427 good R-wave progression across the precordial leads. No T-wave inversions. Discharge Plan Discharge Clinical Impression: Scarring of lung, Headache, Dyspnea, Arthralgia, Medication side effect, Steroid withdrawal syndrome, Rash Patient Disposition: Home, Self-Care Condition: Stable Instructions: Antibiotic Form, Dyspnea (ED), Arthralgia (ED), Dermatitis (ED), General Headache (ED) Additional Instructions: As we discussed, some of her symptoms may be due to the doxycycline you are taking and others may be attributed to the fact that you have been taken off steroids or chronically on them previously. You are being prescribed low-dose short course steroid again. Follow-up with your primary care physician and flight technician and keep your upcoming appointment with Dermatology. Return to the emergency department with any new or worsening symptoms. Patient Language: Yi Prescriptions: New prednisone 5 mg tablet 5 mg PO DAILY 7 Days Qty: 7 0RF Rx Instructions: start 12/16/24 No Action trazodone 50 mg tablet Otezla 30 mg tablet PO triamcinolone acetonide 0.1 % cream 1 applic topical BID 7 Days Qty: 30 0RF betamethasone valerate 0.1 % ointment 1 applic topical BID PRN (Reason: rash) Qty: 15 0RF white petrolatum [White Petroleum Jelly] Gel 1 applic topical 4-12XD PRN (Reason: dry skin) Qty: 113 0RF Aquaphor Original 41 % ointment 1 applic topical DAILY PRN (Reason: dry skin) Qty: 396 0RF Follow-up/Referrals: Florence,ISMAEL Foster [Primary Care Provider] - Stand Alone Forms: Work/School Release IP Time of Disposition: 10:57
--- NOTE | 2024-12-15 07:46 | ECG_ITS ---
Test Date: 2024-12-15 07:57:55 Measurements Intervals [place] Rate: 75 P: 76 NC: 150 QRS: 66 QRSD: 92 T: 58 QT: 399 QTc: 446 Interpretive Statements SINUS RHYTHM NONSPECIFIC T-WAVE ABNORMALITY ABNORMAL ECG Compared to ECG 06/24/2024 14:58:06 No significant changes Electronically Signed On 12-15-2024 13:59:34 CDT by Darius Kirby M.D.
[2024-12-15 08:20] LABS: Basophils Absolute Auto 0.1 K/mm3 (0.0-0.1); Eosinophils Absolute Auto 0.1 K/mm3 (0-0.3); Eosinophils Percent Auto 1.6 % (0-4.4); Hematocrit 46.4 % (37.0-47.0); Hemoglobin 15.5 g/dL (12.0-15.0); Immature Granulocyte Absolute 0.03 K/mm3 (0.00-0.031); Immature Granulocyte Percent A 0.4 % (0-0.5); Lymphocytes Absolute Auto 1.86 K/mm3 (0.9-3.2); Lymphocytes Percent Auto 25.4 % (18.3-44.2); Mean Corpuscular HGB Conc 33.4 g/dl (32-36); Mean Corpuscular Hemoglobin 29.2 pg (26-34); Mean Corpuscular Volume 87.4 fl (80-100); Mean Platelet Volume 9.5 fl (7.4-10.4); Monocytes Absolute Auto 0.6 K/mm3 (0.1-0.6); Monocytes Percent Auto 7.8 % (2.6-8.5); Neutrophils Absolute Auto 4.7 K/mm3 (1.3-6.7); Neutrophils Percent Auto 63.8 % (45.5-73.1); Platelet Count Result 284 k/mm3 (150-375); Red Blood Count 5.31 M/mm3 (4.2-5.4); Red Cell Distribution Width 13.3 % (11.5-14.5); White Blood Count 7.3 K/mm3 (4.5-10.0)
[2024-12-15 08:30] VITALS: BP 134/105; PULSE 87; RESP 16; O2SAT 99
[2024-12-15] MEDS: SODIUM CHLORIDE 0.9% IV 1,000 ML 999 ML IV CONT (08:31)
[2024-12-15] MEDS: KETOROLAC 15 MG/ML VIAL (*BKC) IV PUSH (08:35)
[2024-12-15] MEDS: PROCHLORPERAZINE EDISYLATE 10 MG/2 ML VIAL 5 MG IV PUSH (08:37)
[2024-12-15] MEDS: diphenhydrAMINE HCl INJ 50 MG/ML VIAL 25 MG IV PUSH (08:38)
[2024-12-15 08:49] LABS: D Dimer 1.52 ug/mL (<0.48)
[2024-12-15 08:51] LABS: Alanine Aminotransferase 24 U/L (6-35); Albumin Level 4.2 g/dL (3.5-5.1); Alkaline Phosphatase 94 U/L (38-126); Anion Gap 8 mmol/L (4-12); Aspartate Amino Transferase 20 U/L (14-36); Bilirubin,Total 0.7 mg/dL (0.2-1.3); Blood Urea Nitrogen 13 mg/dL (7-17); CRP < 0.5 mg/dL (<1.0); Calcium 9.4 mg/dL (8.4-10.2); Carbon Dioxide 29 mmol/L (22-30); Chloride 104 mmol/L (98-107); Estimated Glomerular Filt Rate > 60; Glucose 103 mg/dL (65-110); Potassium 4.6 mmol/L (3.4-5.0); Sodium 141 mmol/L (137-145)
[2024-12-15 08:59] LABS: NT Pro B Type Natriuretic Pept 65 pg/mL (19.9-100); Troponin I < 0.012 ng/mL (0.000-0.034)
[2024-12-15 09:19] LABS: Erythrocyte Sedimentation Rate 11 mm/hr (0-20)
[2024-12-15] MEDS: MAGNESIUM SULF 1 GM/D5W 100 ML 1 GM/100 ML BAG IVPB (10:21)
[2024-12-15 10:22] VITALS: BP 153/92; PULSE 77; RESP 16; O2SAT 100
[2024-12-15] MEDS: dexAMETHasone 2 MG TABLET 10 MG PO (10:43)
[2024-12-15 11:29] VITALS: BP 138/83; PULSE 80; RESP 16; O2SAT 100
== END 2024-12-15 11:31 | disposition home or self-care (01) ==
PROVIDERS: Emergency Provider Student in an Organized Health Care Education/Training Program; PCP Registered Nurse
DX: R21 Rash and other nonspecific skin eruption (principal); R51.9 Headache, unspecified; R06.00 Dyspnea, unspecified; M25.50 Pain in unspecified joint; F19.239 Other psychoactive substance dependence with withdrawal, unspecified; T36.4X5A Adverse effect of tetracyclines, initial encounter; M06.9 Rheumatoid arthritis, unspecified; J45.909 Unspecified asthma, uncomplicated; L40.9 Psoriasis, unspecified; Z86.718 Personal history of other venous thrombosis and embolism; Z87.891 Personal history of nicotine dependence; Z86.16 Personal history of COVID-19; Z79.899 Other long term (current) drug therapy
CPT/HCPCS: 36415; 71045; 71275; 80053; 83735; 83880; 84484; 85025; 85380; 85652; 86140; 93005; 96361; 96365; 96375; 99284; J0780; J1200; J1885; J3475; J7030; J8540; Q9967

== ENCOUNTER 2025-02-13 12:49 | Emergency (ER) | payer BC, SELFPAY ==
--- NOTE | 2025-02-13 12:53 | ED.URI ---
HPI - URI/Sore Throat General Chief Complaint: Upper Respiratory Infection Stated Complaint: sinus congestion Time Seen by Provider: 02/13/25 12:51 Source: patient Mode of arrival: ambulatory Limitations: no limitations History of Present Illness HPI Narrative: Patient is a 58-year-old female who presents with headache, postnasal drip, sinus pressure and itchy eyes for 2 weeks. She also reports of consistent cough the past week with yellow sputum; worse at night and interfering with sleep. Denies ear pain. She reports trying Mucinex, Zyrtec, Flonase with minimal improvement. Reported mild sore throat yesterday, better today. Reports chronic shortness of breath with history of asthma denies any chest pain or tightness. She reports she vapes currently. She reports being a former smoker stopped in 2011. She also has a history of psoriatic arthritis and is on Remicade injections her next injection is February 27. Denies fever chills. She reported recent antibiotic use possibly doxy 6 weeks ago for unknown skin rash. Related Data Home Medications ?Medication ?Instructions ?Recorded ?Confirmed ?Last Taken ?Type apremilast 30 mg tablet (Otezla) mg PO 08/12/24 Unknown History trazodone 50 mg tablet mg 08/12/24 Unknown History Allergies Allergy/AdvReac Type Severity Reaction Status Date / Time cobalt Allergy Unknown Hives Verified 02/13/25 13:01 latex Allergy Unknown Hives Verified 02/13/25 13:01 Review of Systems Review of Systems: All systems reviewed & are unremarkable except as noted in HPI and below Constitutional: Constitutional: Denies chills, Denies fatigue, Denies fever(s), Reports headache(s), Denies malaise and Denies weakness Eyes: Eyes: Denies blurry vision, Denies itchy eyes and Denies loss of vision ENT: Denies otalgia, Reports headache(s), Reports nasal congestion, Denies sinus pain and Reports sore throat Cardiovascular: Cardiovascular: Denies chest pain, Denies irregular heart rhythm and Denies dyspnea Respiratory: Respiratory: Reports cough and Denies dyspnea Gastrointestinal: Gastrointestinal: Denies abdominal pain, Denies diarrhea, Denies nausea and Denies vomiting Musculoskeletal: Musculoskeletal: Denies back pain, Denies myalgias and Denies arthralgias Integumentary/Breasts: Skin/Breast: Denies pruritus and Denies rash Neurologic: Reports headache(s), Denies loss of vision and Denies weakness Psychiatric: Psychiatric: Reports no additional psychiatric complaints Endocrine: Endocrine: Denies fatigue Allergic/Immunologic: Allergic/Immunologic: Denies itchy eyes PMFSH Past Medical History Medical History DVT (deep venous thrombosis) Leg, when ~22 yo; not on anticoagulation Rheumatoid arthritis Psoriasis Asthma Surgical History Surgical History History of cholecystectomy History of hysterectomy Family History Family History Other Cerebrovascular accident Hypertension Social History Social History Smoking status: Former smoker Tobacco type: cigarettes Second hand tobacco smoke exposure: No Alcohol intake: current Substance use: never Living arrangements: with family Occupation/Education: occupation Gender identity (if verbalized by the patient): Female Sexual Orientation (if Verbalized by the Patient): Straight or Heterosexual Comments At time of signature, agree with nursing past medical, surgical, social and family history. There is no relevant family history pertinent to the presenting complaint. Exam Const: General: cooperative, healthy appearing, comfortable, no acute distress and well nourished Nutritional Appearance: well nourished Orientation/consciousness: patient oriented x3 Limitations: no limitations HENMT: Head: normal to inspection, normocephalic and atraumatic Ears: hearing grossly normal bilaterally, external ears normal, TM's normal bilaterally, EAC's normal and no periauricular adenopathy Face/Nose/Sinus: Normal external nose present, Abnormal mucous membranes and turbinates present erythematous bilateral and diffuse, normal facial exam, sinuses nontender and face symmetric Face and sinus: normal facial exam, sinuses nontender and face symmetric Mouth: Yes Normal oral and palatal mucosa present, Yes lip normal, Yes tongue normal, Yes Normal salivary glands and ducts present, Yes oropharynx normal and Yes moist mucous membranes Teeth and gingiva: dentition normal Throat: posterior oropharynx normal, tonsils normal and uvula midline Eyes: General: appearance normal, both eyes and all related structures Alignment and Position: alignment normal and position normal Periorbital: periorbital findings normal Eyelids: eyelids normal Pupils: Equal, round and reactive pupils present Neck: Neck: normal visual inspection, full ROM, no lymphadenopathy and supple Chest: Chest palpation & inspection: normal inspection of the chest and normal palpation of entire chest wall Resp: Effort & Inspection: normal respiratory effort, able to speak in complete sentences and Actively coughing productive Auscultation: clear to auscultation bilaterally, no crackles, no rales, no rhonchi and no wheezes Cardio: Rate: tachycardic Rhythm: regular rhythm Heart sounds: S1 normal heart sound present and S2 normal heart sound present GI: Inspection: normal to inspection Skin: General skin exam: normal color and no rashes or lesions noted Neuro: General: patient oriented x3 and moves all extremities Cranial nerves: Yes Equal, round and reactive pupils present Speech: normal speech Gait exam (Neuro): Normal gait present Extrem: General: normal to inspection, full ROM and no edema Psych: Appearance: grossly normal and well kempt Mental Status: mental status grossly normal Speech and movement: Normal speech and movement present Affect: normal affect Attitude: cooperative Thought process: Normal thought process present Course Course Emergency Course: Discharge instructions reviewed with patient, as well as provided in writing per nursing staff. The instructions also include specific and strict return/GO TO THE ER as well as f/u information. All questions have been answered, and the patient deny any further questions with discharge and discharge plan. Portions of this record may have been created with voice recognition software Level of Care: Express Care Visit Vital Signs Vital signs: Vital Signs Temperature 36.5 C 02/13/25 12:55 Pulse Rate 103 H 02/13/25 12:55 Respiratory Rate 14 02/13/25 12:55 Blood Pressure 119/87 02/13/25 12:55 Pulse Oximetry 98 02/13/25 12:55 Temperature 36.5 C 02/13/25 12:55 Pulse Rate 103 H 02/13/25 12:55 Respiratory Rate 14 02/13/25 12:55 Blood Pressure 119/87 02/13/25 12:55 Pulse Oximetry 98 02/13/25 12:55 Reviewed MDM - URI/Sore Throat MDM Narrative Medical decision making narrative: Pt well hydrated appearing, in no respiratory distress, hemodynamically stable. Recommend supportive care. The patient is stable at time of discharge the clinical impression was discussed and the patient was given the opportunity to ask questions, which were addressed as completely as possible given the information available at present. Anticipatory guidance and return to care precautions were discussed and the importance of primary care follow-up was stressed and encouraged. The patient voiced understanding of the plan, indications to return, and the need for follow-up. Exam findings show no acute concerns or changes Patient is appropriate for outpatient treatment and follow-up. Differential diagnosis considered: Resendiz virus, strep pharyngitis, allergic rhinitis, upper respiratory tract infection, sinusitis, rhinosinusitis, nasopharyngitis. viral pharyngitis, otitis media, otitis externa, otitis effusion, foreign body, cerumen impaction, viral syndrome, and influenza.? Medical Records Attestation: I reviewed the patient's medical records. Discharge Plan Discharge Clinical Impression: Acute purulent bronchitis Patient Disposition: Home Condition: Stable Instructions: Acute Bronchitis (ED) Additional Instructions: Take antibiotic as prescribed. Use Tessalon Perles as needed for cough. Use inhaler with spacer as needed. Other symptomatic treatments include: -Alternate Tylenol and Motrin per package directions for fever or pain: Tylenol 650-1000mg by mouth every 4-6 hours. Do not exceed 4000mg in 24 hours. Advil (Ibuprofen) 600 mg by mouth every 6 hours. Do not exceed 2400mg in 24 hours. 8 AM: Tylenol 11 AM: Ibuprofen 2 PM: Tylenol 5 PM: Ibuprofen 8 PM: Tylenol 11 PM: Ibuprofen 2 AM: Tylenol 5 AM: Ibuprofen -Antihistamine medication such as Benadryl at night and Zyrtec/Claritin/Anjelica during the day can help improve symptoms. -Use Flonase twice a day for 5 days then daily to help reduce the inflammation and dry up your sinuses. -You can also use Sudafed or Mucinex. Be sure to drink plenty of water with these medications at least 8 ounces with every dose and it is important to drink 8 to 10 glasses of water per day. Water is a natural decongestant -Eat and drink things that are easy to swallow, like tea or soup, or popsicles. -Oral rinses such as: Salt water gargles and/or may use topical anesthetic (eg. Chloraseptic spray) or lozenges to relieve dryness or throat pain). -Frequent hand washing or hand product marketing specialist is one of the best ways to prevent spread of infection. -Using a vaporizer or humidifier at night will also help thin secretions and help with coughing up phlegm. Call your Primary Care Doctor and make a follow-up appointment in 3 days. If your cough worsens, you develop a fever greater than 103, you develop shaking chills, a fast heartbeat, trouble breathing and/or feel you are are breathing much faster than usual, call your Primary Care Doctor or go to the ER. Patient Language: [place] Prescriptions: New (DME) Aerochamber MV Spacer See Rx Instructions .Route Qty: 1 0RF Rx Instructions: As directed benzonatate 100 mg capsule 100 mg PO BID PRN (Reason: cough) Qty: 14 0RF albuterol sulfate 90 mcg/actuation HFA aerosol inhaler 2 puff inhalation QID PRN (Reason: shortness of breath or wheezing) Qty: 6.7 0RF amoxicillin-pot clavulanate 875-125 mg tablet 1 tablet PO Q12H 10 Days Qty: 20 0RF No Action trazodone 50 mg tablet Otezla 30 mg tablet PO triamcinolone acetonide 0.1 % cream 1 applic topical BID 7 Days Qty: 30 0RF betamethasone valerate 0.1 % ointment 1 applic topical BID PRN (Reason: rash) Qty: 15 0RF white petrolatum [White Petroleum Jelly] Gel 1 applic topical 4-12XD PRN (Reason: dry skin) Qty: 113 0RF Aquaphor Original 41 % ointment 1 applic topical DAILY PRN (Reason: dry skin) Qty: 396 0RF Follow-up/Referrals: Florence,Kirstin, HOME ADVISOR [Primary Care Provider] - 3 Days Stand Alone Forms: Work/School Release IP Time of Disposition: 13:49
[2025-02-13 12:55] VITALS: BP 119/87; PULSE 103; RESP 14; TEMP 36.5; O2SAT 98
== END 2025-02-13 13:58 | disposition home or self-care (01) ==
PROVIDERS: Emergency Provider Nurse Practitioner Family; PCP Registered Nurse
DX: J20.9 Acute bronchitis, unspecified (principal); Z87.891 Personal history of nicotine dependence; M06.9 Rheumatoid arthritis, unspecified; J45.909 Unspecified asthma, uncomplicated; L40.9 Psoriasis, unspecified; Z86.718 Personal history of other venous thrombosis and embolism
CPT/HCPCS: 99213; G0463

== ENCOUNTER 2025-07-14 10:09 | Emergency (ER) | payer BC, SELFPAY ==
--- NOTE | ~2025-07-14 | XR_ITS ---
EXAMINATION: XR ankle RT min 3V DATE: 07/14/2025 11:30 INDICATION: Right ankle pain. Rheumatoid arthritis flare. TECHNIQUE: Anteroposterior, oblique, mortise, and lateral views of the right ankle were obtained. COMPARISON: None. FINDINGS: Bone alignment is normal. No fracture. There is mild osteoarthritis at the right ankle with nonuniform medial and posterior predominant joint space narrowing and prominent marginal ossified swelling the dorsal neck of the talus. There is suggestion of erosions along the medial tip of the lateral malleolus which may relate to reported history of rheumatoid arthritis. Small plantar calcaneal spur. Possible small right ankle joint effusion. Soft tissues are otherwise unremarkable. IMPRESSION: 1. Mild osteoarthritis at the right ankle with erosion along the medial margin of the lateral malleolus which may relate to reported known history of rheumatoid arthritis. Reviewed, dictated and finalized at location A. IMPRESSION: 1. Mild osteoarthritis at the right ankle with erosion along the medial margin of the lateral malleolus which may relate to reported known history of rheumato id arthritis.
--- NOTE | ~2025-07-14 | XR_ITS ---
EXAMINATION: XR knee RT min 4V, 07/14/2025 11:25 CDT HISTORY: right knee pain, RA flare COMPARISON: No comparisons available. Findings: No acute fracture or malalignment. No significant degenerative changes. Soft tissues unremarkable. Impression: No acute fracture or malalignment. Reviewed, dictated and finalized at location P. Impression: No acute fracture or malalignment.
--- NOTE | ~2025-07-14 | XR_ITS ---
EXAMINATION: XR shoulder RT min 2V DATE: 07/14/2025 11:30 INDICATION: Right shoulder pain. Rheumatoid arthritis flare. TECHNIQUE: AP internally and externally rotated, AP oblique externally rotated and transscapular Y views of the right shoulder were obtained. COMPARISON: None FINDINGS: Normal alignment. No fracture. Glenohumeral joint is normal. Mild acromioclavicular osteoarthritis. Mild hypertrophic and cystic change along the greater tuberosity which could relate to chronic rotator cuff disease. Soft tissues are unremarkable. Visualized portion of the lungs are clear. IMPRESSION: 1. Mild right acromioclavicular osteoarthritis. 2. Mild cystic and hypertrophic change along the greater tuberosity which can be seen with chronic rotator cuff disease. Reviewed, dictated and finalized at location A. IMPRESSION: 1. Mild right acromioclavicular osteoarthritis. 2. Mild cystic and hypertrophic change along the greater tuberosity which can b e seen with chronic rotator cuff disease.
--- NOTE | ~2025-07-14 | XR_ITS ---
EXAMINATION: XR hand RT 2V, 07/14/2025 11:25 CDT HISTORY: right hand pain, RA flare COMPARISON: No comparisons available. Findings: No acute fracture or malalignment. Moderate degenerative changes of the first metacarpal phalangeal joint with small erosions Soft tissues unremarkable. Impression: No acute fracture or malalignment. Reviewed, dictated and finalized at location P. Impression: No acute fracture or malalignment.
[2025-07-14 10:16] VITALS: BP 134/90; PULSE 102; RESP 18; TEMP 36.4; O2SAT 100
--- NOTE | 2025-07-14 11:04 | ED_ITS ---
HPI - Extremity Problem General Chief complaint: Extremity Problem,Nontraumatic Stated complaint: rheumatoid/psoriatic arthritis flair up Time Seen by Provider: 07/14/25 10:30 Source: patient Mode of arrival: ambulatory Limitations: no limitations History of Present Illness HPI Narrative: This is a 54-year-old female that presents to the emergency department for RA flare. Ongoing over the last 5 days. Reports diffuse pain. Largely on her right side shoulder, hand, knee ankle. Reports history of rheumatoid arthritis. Reports she has been taking anti-inflammatories with little relief. She does have an appointment to see her directional driller 2 days from now. Did not believe she would be able to wait. Related Data Home Medications ?Medication ?Instructions ?Recorded ?Confirmed ?Last Taken ?Type apremilast 30 mg tablet (Otezla) mg PO 08/12/24 Unkno wn History trazodone 50 mg tablet mg 08/12/24 Unknown History Allergies Allergy/AdvReac Type Severity Reaction Status Date / Time cobalt Allergy Unknown Hives Verified 07/14/25 10:21 latex Allergy Unknown Hives Verified 07/14/25 10:21 Review of Systems 2 Review of Systems: All systems reviewed & are unremarkable except as noted in HPI and below PMFSH Past Medical History Medical History DVT (deep venous thrombosis) Leg, when ~22 yo; not on anticoagulation Rheumatoid arthritis Psoriasis Asthma Surgical History Surgical History History of cholecystectomy History of hysterectomy Family History Family History Other Cerebrovascular accident Hypertension Social History Social History Smoking status: Former smoker Tobacco type: cigarettes Second hand tobacco smoke exposure: No Alcohol intake: current Substance use: never Living arrangements: with family Occupation/Education: occupation Gender identity (if verbalized by the patient): Female Sexual Orientation (if Verbalized by the Patient): Straight or Heterosexual Exam 2 Narrative: GENERAL: Well-appearing, well-nourished, and in no acute distress. HEAD: Normocephalic, atraumatic. EYES: EOMI. CHEST: Clear to auscultation. No respiratory distress. No wheezes rales or rhonchi HEART: Regular rate and rhythm. No murmur heard. Normal peripheral pulses. EXTREMITIES: Normal range of motion. No edema or erythema. Normal DP and radial pulses SKIN: Warm, dry, no rash. NEURO: No focal deficits. Alert and oriented x3. PSYCH: Normal mood and affect Course Vital Signs Vital signs: Vital Signs Temperature 97.6 F 07/14/25 10:16 Pulse Rate 102 H 07/14/25 10:16 Respiratory Rate 18 07/14/25 10:16 Blood Pressure 134/90 07/14/25 10:16 Pulse Oximetry 100 07/14/25 10:16 Oxygen Delivery Room Air 07/14/25 10:16 Temperature 97.6 F 07/14/25 10:16 Pulse Rate 96 07/14/25 11:50 Respiratory Rate 17 07/14/25 11:50 Blood Pressure 143/99 H 07/14/25 11:50 Pulse Oximetry 100 07/14/25 11:50 Oxygen Delivery Room Air 07/14/25 10:16 MDM - Extremity (Nontraumatic) MDM Narrative Medical decision making narrative: Patient presents to the ER for diffuse joint pain, reports feels typical of RA flare. She is afebrile and nontoxic appearing. Her vitals are stable. She is neurovascularly intact. Cbc without leukocytosis. Metabolic panel with normal appearing kidney function. Inflammatory markers are elevated. X-rays of the ankle, hand, shoulder showing arthritis. Right knee x-ray without acute osseous abnormalities. Patient will be started steroid taper. Instructed to follow-up with her directional driller as scheduled. She was given warnings to return the ER Differential Diagnosis Differential diagnosis: Likely other (arthritis, muscle strain, tendonitis) Lab Data Attestation: I reviewed the patient's lab results. 07/14/25 11:49 07/14/25 11:49 Labs: Lab Results 07/14/25 Range/Units 11:49 WBC 7.5 (4.5-10.0) K/mm3 RBC 5.23 (4.2-5.4) M/mm3 Hgb 14.6 (12.0-15.0) g/dL Hct 43.9 (37.0-47.0) % MCV 83.9 (80-100) fl MCH 27.9 (26-34) pg MCHC 33.3 (32-36) g/dl RDW 12.6 (11.5-14.5) % Plt Count 309 (150-375) k/mm3 MPV 9.4 (7.4-10.4) fl Immature Gran % (Auto) 0.3 (0-0.5) % Neut % (Auto) 73.3 H (45.5-73.1) % Lymph % (Auto) 15.3 L (18.3-44.2) % [place] % (Auto) 7.6 (2.6-8.5) % Eos % (Auto) 2.4 (0-4.4) % Baso % (Auto) 1.1 (0.2-1.2) % Lymph # (Auto) 1.15 (0.9-3.2) K/mm3 [place] # (Auto) 0.6 (0.1-0.6) K/mm3 Eos # (Auto) 0.2 (0-0.3) K/mm3 Baso # (Auto) 0.1 (0.0-0.1) K/mm3 Abs Immat Gran (auto) 0.02 (0.00-0.031) K/mm3 Absolute Neuts (auto) 5.5 (1.3-6.7) K/mm3 Absolute Nucleated RBC 0.000 (0.0-0.012) K/mm3 Nucleated RBC % 0.0 (0.0-0.2) % ESR 57 H (0-20) mm/hr Sodium 135 L (137-145) mmol/L Potassium 4.0 (3.4-5.0) mmol/L Chloride 102 (98-107) mmol/L Carbon Dioxide 28 (22-30) mmol/L Anion Gap 5 (4-12) mmol/L BUN 9 (7-17) mg/dL Creatinine 0.64 L (0.7-1.0) mg/dL Estim Creat Clear Calc 88 ml/min Estimated GFR > 60 (59 - ) Glucose 120 H (65-110) mg/dL Calcium 8.9 (8.4-10.2) mg/dL Total Bilirubin 0.7 (0.2-1.3) mg/dL AST 35 (14-36) U/L ALT 29 (6-35) U/L Alkaline Phosphatase 137 H (38-126) U/L C-Reactive Protein 2.2 H (<1.0) mg/dL Total Protein 7.0 (6.3-8.2) g/dL Albumin 3.7 (3.5-5.1) g/dL Imaging Data Radiologist's impression: ITS Impressions Ankle X-Ray 07/14/25 11:31 IMPRESSION: 1. Mild osteoarthritis at the right ankle with erosion along the medial margin of the lateral malleolus which may relate to reported known history of rheumatoid arthritis. Hand X-Ray 07/14/25 11:33 Impression: No acute fracture or malalignment. Knee X-Ray 07/14/25 11:33 Impression: No acute fracture or malalignment. Shoulder X-Ray 07/14/25 11:33 IMPRESSION: 1. Mild right acromioclavicular osteoarthritis. 2. Mild cystic and hypertrophic change along the greater tuberosity which can be seen with chronic rotator cuff disease. Critical Care Time Critical Care Time Critical Care Time: No Discharge Plan Discharge Clinical Impression: Rheumatoid arthritis flare Patient Disposition: Home Condition: Stable Instructions: Rheumatoid Arthritis (ED) Additional Instructions: Return to the ER if you experience fever, redness and swelling of your extremity, numbness or any other symptoms that are concerning to you Take Prednisone as prescribed. Pain medication as needed Follow up with your doctor for further care. Patient Language: Guamanian Prescriptions: New prednisone 10 mg tablet 10 mg PO DAILY Qty: 45 0RF Rx Instructions: 5 tabs daily for 3 days, 4 tabs daily for 3 days, 3 tabs daily for 3 days, 2 tabs daily for 3 days, 1 tab daily for 3 days hydrocodone-acetaminophen 5-325 mg tablet 1 tablet PO Q8H PRN (Reason: pain) Qty: 10 0RF No Action trazodone 50 mg tablet Otezla 30 mg tablet PO triamcinolone acetonide 0.1 % cream 1 applic topical BID 7 Days Qty: 30 0RF (DME) Aerochamber MV Spacer See Rx Instructions .Route Qty: 1 0RF Rx Instructions: As directed benzonatate 100 mg capsule 100 mg PO BID PRN (Reason: cough) Qty: 14 0RF albuterol sulfate 90 mcg/actuation HFA aerosol inhaler 2 puff inhalation QID PRN (Reason: shortness of breath or wheezing) Qty: 6.7 0RF amoxicillin-pot clavulanate 875-125 mg tablet 1 tablet PO Q12H 10 Days Qty: 20 0RF betamethasone valerate 0.1 % ointment 1 applic topical BID PRN (Reason: rash) Qty: 15 0RF white petrolatum [White Petroleum Jelly] Gel 1 applic topical 4-12XD PRN (Reason: dry skin) Qty: 113 0RF Aquaphor Original 41 % ointment 1 applic topical DAILY PRN (Reason: dry skin) Qty: 396 0RF Follow-up/Referrals: Florence,Kristin, DIRECTIONAL DRILLER [Primary Care Provider]
[2025-07-14] MEDS: HYDROcodone/acetaminophen (*CRX) 5-325 MG TABLET 1 TAB PO (11:14)
[2025-07-14 11:50] VITALS: BP 143/99; PULSE 96; RESP 17; O2SAT 100
[2025-07-14 11:55] LABS: Hematocrit 43.9 % (37.0-47.0); Hemoglobin 14.6 g/dL (12.0-15.0); Immature Granulocyte Percent A 0.3 % (0-0.5); Lymphocytes Absolute Auto 1.15 K/mm3 (0.9-3.2); Mean Corpuscular HGB Conc 33.3 g/dl (32-36); Mean Corpuscular Hemoglobin 27.9 pg (26-34); Mean Corpuscular Volume 83.9 fl (80-100); Nucleated Red Blood Cells Absolute Auto 0.000 K/mm3 (0.0-0.012); Nucleated Red Blood Cells Perc 0.0 % (0.0-0.2); Platelet Count Result 309 k/mm3 (150-375); Red Blood Count 5.23 M/mm3 (4.2-5.4); White Blood Count 7.5 K/mm3 (4.5-10.0)
[2025-07-14 12:09] LABS: Alanine Aminotransferase 29 U/L (6-35); Albumin Level 3.7 g/dL (3.5-5.1); Alkaline Phosphatase 137 U/L (38-126); Anion Gap 5 mmol/L (4-12); Aspartate Amino Transferase 35 U/L (14-36); Bilirubin,Total 0.7 mg/dL (0.2-1.3); Blood Urea Nitrogen 9 mg/dL (7-17); CRP 2.2 mg/dL (<1.0); Calcium 8.9 mg/dL (8.4-10.2); Carbon Dioxide 28 mmol/L (22-30); Chloride 102 mmol/L (98-107); Estimated CRCL calculation 88 ml/min; Estimated Glomerular Filt Rate > 60; Glucose 120 mg/dL (65-110); Potassium 4.0 mmol/L (3.4-5.0); Sodium 135 mmol/L (137-145); Total Protein 7.0 g/dL (6.3-8.2)
[2025-07-14 14:04] VITALS: BP 136/90; PULSE 90; RESP 16; O2SAT 100
== END 2025-07-14 14:05 | disposition home or self-care (01) ==
PROVIDERS: Emergency Provider Physician Assistant; PCP Registered Nurse
DX: M06.9 Rheumatoid arthritis, unspecified (principal); J45.909 Unspecified asthma, uncomplicated; L40.9 Psoriasis, unspecified; Z86.718 Personal history of other venous thrombosis and embolism; Z87.891 Personal history of nicotine dependence; Z90.49 Acquired absence of other specified parts of digestive tract; Z90.710 Acquired absence of both cervix and uterus; M19.011 Primary osteoarthritis, right shoulder; M19.071 Primary osteoarthritis, right ankle and foot; R93.6 Abnormal findings on diagnostic imaging of limbs
CPT/HCPCS: 36415; 73030; 73120; 73564; 73610; 80053; 85025; 85652; 86140; 99284; A9270

== ENCOUNTER 2025-09-05 12:29 | Emergency (ER) | payer BC, SELFPAY ==
[2025-09-05 12:48] VITALS: BP 112/66; PULSE 96; RESP 20; TEMP 36.6; O2SAT 99
--- NOTE | 2025-09-05 12:58 | ED_ITS ---
HPI - General Adult General Chief complaint: Unspecified Stated complaint: Body Pain All Over Related Data Home Medications ?Medication ?Instructions ?Recorded ?Confirmed ?Last Taken ?Type apremilast 30 mg tablet (Otezla) mg PO 08/12/24 Unkno wn History omalizumab 150 mg/mL subcutaneous mg subcut 09/05/25 Unknown History syringe (Xolair) Allergies Allergy/AdvReac Type Severity Reaction Status Date / Time cobalt Allergy Unknown Hives Verified 09/05/25 12:56 latex Allergy Unknown Hives Verified 09/05/25 12:56 PMFSH Past Medical History Medical History DVT (deep venous thrombosis) Leg, when ~22 yo; not on anticoagulation Rheumatoid arthritis Psoriasis Asthma Surgical History Surgical History History of cholecystectomy History of hysterectomy Family History Family History Other Cerebrovascular accident Hypertension Social History Social History Smoking status: Former smoker Tobacco type: cigarettes Second hand tobacco smoke exposure: No Alcohol intake: current Substance use: never Living arrangements: with family Occupation/Education: occupation Gender identity (if verbalized by the patient): Female Sexual Orientation (if Verbalized by the Patient): Straight or Heterosexual Course Course Level of Care: Express Care Visit Vital Signs Vital signs: Vital Signs Temperature 97.9 F 09/05/25 12:48 Pulse Rate 96 09/05/25 12:48 Respiratory Rate 20 09/05/25 12:48 Blood Pressure 112/66 09/05/25 12:48 Pulse Oximetry 99 09/05/25 12:48 Oxygen Delivery Room Air 09/05/25 12:48 Temperature 97.9 F 09/05/25 12:48 Pulse Rate 96 09/05/25 12:48 Respiratory Rate 20 09/05/25 12:48 Blood Pressure 112/66 09/05/25 12:48 Pulse Oximetry 99 09/05/25 12:48 Oxygen Delivery Room Air 09/05/25 12:48 MDM MDM Narrative Medical decision making narrative: history of rheumatoid arthritis and psoriatic arthritis requesting steroids for flare. The patient was evaluated by myself in the [facility]. History is obtained from patient who is an independent historian and physical exam was performed. Available medical records were reviewed at this time. Exam findings show no acute concerns or changes; patient is non-toxic appearing and is in no distress. Patient is appropriate for outpatient treatment and follow-up. I have evaluated and discussed social determinants of health with the patient that could potentially impact subsequent diagnosis and treatment plans. Differential diagnosis and treatment plan were discussed with the patient. Slime ent agrees with discussion and after shared medical decision making agrees with plan of care. All questions were answered to the patient's satisfaction. Differential Diagnosis Differential Diagnosis: Joint pain, arthritis flare, injury, osteoarthritis Medical Records I have reviewed the following patient records and this information was taken into consideration when formulating the assessment and plan.: previous labs, previous ER visits, previous hospitalizations and previous clinic visits Discharge Plan Discharge Clinical Impression: Flare of rheumatoid arthritis Patient Disposition: Home Condition: Stable Instructions: Antibiotic Form, Arthralgia (ED) Additional Instructions: take the prednisone as directed for a flare-up of your autoimmune arthritis. Ensure to take this with food take ibuprofen or naproxen as directed consistently this will help with inflammation. Follow-up with primary care physician within the next week if symptoms not improved if you notice any significant numbness, tingling, weakness, or neck pain follow-up with emergency room for immediate evaluation. Patient Language: Grenadian Prescriptions: New prednisone 10 mg tablet 10 mg PO DIRECTED Qty: 30 0RF Rx Instructions: take 4 tablets for 3 days, 3 tablets for 3 days, 2 tablets for 3 days, 1 tablet for 3 days No Action Otezla 30 mg tablet PO Xolair 150 mg/mL syringe SUBCUT Follow-up/Referrals: Florence,ISMAEL Foster [Primary Care Provider] Time of Disposition: 13:01
--- NOTE | 2025-09-05 13:35 | ED_ITS ---
HPI - Extremity Problem General Chief complaint: Unspecified Stated complaint: Body Pain All Over patient presents to the [facility] with complaints being in a rheumatoid / psoriatic arthritis flare up. Patient noted having both of these as it injections and takes daily medication for both of these autoimmune disease. Patient noted over the last several days has had significant ankle, feet, and hand pain and swelling. Noted she has been using Epsom salt soaks, ibuprofen, and ice and some of the hand swelling has gone down but patient is requesting prednisone has attempted to with primary care and rheumatology without returned calls this week. Related Data Home Medications ?Medication ?Instructions ?Recorded ?Confirmed ?Last Taken ?Type apremilast 30 mg tablet (Otezla) mg PO 08/12/24 Unkno wn History omalizumab 150 mg/mL subcutaneous mg subcut 09/05/25 Unknown History syringe (Xolair) Allergies Allergy/AdvReac Type Severity Reaction Status Date / Time cobalt Allergy Unknown Hives Verified 09/05/25 12:56 latex Allergy Unknown Hives Verified 09/05/25 12:56 Review of Systems Constitutional: Constitutional: Reports as per HPI, Denies chills, Reports fatigue, Denies fever(s) and Denies weakness Eyes: Eyes: Reports no additional eye complaints ENT: Reports system reviewed and no additional complaints, except as documented Cardiovascular: Cardiovascular: Reports no additional cardiovascular complaints Respiratory: Respiratory: Reports no additional respiratory complaints Gastrointestinal: Gastrointestinal: Reports no additional gastrointestinal complaints Genitourinary: Genitourinary: Reports no additional female genitourinary complaints Musculoskeletal: Musculoskeletal: Reports as per HPI, Reports arthralgias, Reports joint swelling and Denies muscle cramps Integumentary/Breasts: Skin/Breast: Reports as per HPI, Denies erythema, Denies rash and Denies skin ulcer Neurologic: Reports as per HPI and Denies weakness Psychiatric: Psychiatric: Reports no additional psychiatric complaints Endocrine: Endocrine: Reports no additional endocrine complaints Hematologic/Lymphatic: Hematologic/Lymphatic: Reports no additional hematologic/lymphatic complaints Allergic/Immunologic: Allergic/Immunologic: Reports no additional allergic/immunologic complaints FORMERLY [facility], [facility] Past Medical History Medical History DVT (deep venous thrombosis) Leg, when ~22 yo; not on anticoagulation Rheumatoid arthritis Psoriasis Asthma Surgical History Surgical History History of cholecystectomy History of hysterectomy Family History Family History Other Cerebrovascular accident Hypertension Social History Social History Smoking status: Former smoker Tobacco type: cigarettes Second hand tobacco smoke exposure: No Alcohol intake: current Substance use: never Living arrangements: with family Occupation/Education: occupation Gender identity (if verbalized by the patient): Female Sexual Orientation (if Verbalized by the Patient): Straight or Heterosexual Exam Const: General: healthy appearing and no acute distress Nutritional Appearance: well nourished Orientation/consciousness: patient oriented x3 Limitations: no limitations Neck: Neck: normal visual inspection and no lymphadenopathy Resp: Effort & Inspection: normal respiratory effort Auscultation: clear to auscultation bilaterally Cardio: Rate: regular rate Rhythm: regular rhythm Skin: General skin exam: normal color Rashes: no rashes Wounds: no wounds Neuro: General: patient oriented x3 and moves all extremities Speech: normal speech Gait exam (Neuro): Normal gait present Extrem: General: edema (hands- mild ) bilateral Psych: Mental Status: mental status grossly normal Affect: normal affect Attitude: cooperative Course Course Level of Care: Express Care Visit Vital Signs Vital signs: Vital Signs Temperature 97.9 F 09/05/25 12:48 Pulse Rate 96 09/05/25 12:48 Respiratory Rate 20 09/05/25 12:48 Blood Pressure 112/66 09/05/25 12:48 Pulse Oximetry 99 09/05/25 12:48 Oxygen Delivery Room Air 09/05/25 12:48 Temperature 97.9 F 09/05/25 12:48 Pulse Rate 96 09/05/25 12:48 Respiratory Rate 20 09/05/25 12:48 Blood Pressure 112/66 09/05/25 12:48 Pulse Oximetry 99 09/05/25 12:48 Oxygen Delivery Room Air 09/05/25 12:48 MDM MDM Narrative Medical decision making narrative: The patient was evaluated by myself in the express care. History is obtained from patient who is an independent historian and physical exam was performed. Available medical records were reviewed at this time. Exam findings show no acute concerns or changes; patient is non-toxic appearing and is in no distress. Patient is appropriate for outpatient treatment and follow-up. I have evaluated and discussed social determinants of health with the patient that could potentially impact subsequent diagnosis and treatment plans. Differential diagnosis and treatment plan were discussed with the patient. Patient agrees with discussion and after shared medical decision making agrees with plan of care. All questions were answered to the patient's satisfaction. Differential Diagnosis Differential Diagnosis: Joint pain, joint injury, arthritis flare up, osteoarthritis Medical Records I have reviewed the following patient records and this information was taken into consideration when formulating the assessment and plan.: previous labs, previous ER visits, previous hospitalizations and previous clinic visits Discharge Plan Discharge Clinical Impression: Flare of rheumatoid arthritis Patient Disposition: Home Condition: Stable Instructions: Antibiotic Form, Arthralgia (ED) Additional Instructions: take the prednisone as directed for a flare-up of your autoimmune arthritis. Ensure to take this with food take ibuprofen or naproxen as directed consistently this will help with inflammation. Follow-up with primary care physician within the next week if symptoms not improved if you notice any significant numbness, tingling, weakness, or neck pain follow-up with emergency room for immediate evaluation. Patient Language: Venezuelan Prescriptions: New prednisone 10 mg tablet 10 mg PO DIRECTED Qty: 30 0RF Rx Instructions: take 4 tablets for 3 days, 3 tablets for 3 days, 2 tablets for 3 days, 1 tablet for 3 days No Action Otezla 30 mg tablet PO Xolair 150 mg/mL syringe SUBCUT Follow-up/Referrals: Florence,ISMAEL Foster [Primary Care Provider] Time of Disposition: 13:01
== END 2025-09-05 13:05 | disposition home or self-care (01) ==
PROVIDERS: Emergency Provider Nurse Practitioner Family; PCP Registered Nurse
DX: M06.9 Rheumatoid arthritis, unspecified (principal); Z87.891 Personal history of nicotine dependence; J45.909 Unspecified asthma, uncomplicated; L40.9 Psoriasis, unspecified; Z86.718 Personal history of other venous thrombosis and embolism
CPT/HCPCS: 99213; G0463